=== PATIENT | male | born 1945 | race African-American/Black ===

== ENCOUNTER → 2017-10-07 | Outpatient (CLI) | payer MEDICARE, MEDICAID ==
--- NOTE | 2017-10-07 13:45 | RADIOLOGY REPORT (SQ) ---
EXAM DESCRIPTION: CT SOFT TISSUE NECK WITH COMPLETED DATE/TIME: 10/07/2017 1:24 pm REASON FOR STUDY: LOCALIZED SWELLING MASS AND LUMP IN NECK (R22.1) R22.1 LOCALIZED SWELLING, MASS A ND LUMP, NECK COMPARISON: None. TECHNIQUE: Post IV contrasted scanning from skull base through lung apices with review of bone, soft tissue and lung windows. Reconstructed coronal and sagittal MPR images reviewed. All images stored on PACS. All CT scanners at this facility use dose modulation, iterative reconstruction, and/or weight based d osing when appropriate to reduce radiation dose to as low as reasonably achievable (ALARA). [facility]: Dose Right [facility]: CareDose [facility]: Dose Right [facility]: Teradose 4D [facility]: AdTotum CONTRAST TYPE AND DOSE: contrast/concentration: Isovue 370.00 mg/ml; Total Contrast Delivered: 75.0 ml; Total Saline Delivered: 55.0 ml RENAL FUNCTION: Creatinine 1.1 RADIATION DOSE: 22 mGy . LIMITATIONS: None. FINDINGS: Patient is post extensive surgery, with laryngectomy, tracheostomy with esophageal speech prosthesis, and a large reconstructive flap along the midline neck submandibular region extending int o the left floor of mouth. Patient swallowed a small amount of oral contrast which pools in the patient's reconstructed hypophar ynx. The tracheostomy is widely patent. In the left submandibular region, a 3.3 x 2.6 by 3 cm soft tissue mass is present along multiple surg ical clips, which could be an abnormal submandibular gland. Local tumor recurrence is also possible. There is an adjacent submandibular 1 x 0.7 cm lymph node. These findings are best shown on axial i mages 43-49, and coronal image 36. There is narrowing of the to and hypopharynx related to mild mass effect from the reconstructive fla p. SKULL BASE: Inferior brain parenchyma is unremarkable. Heavily calcified nikolai of [place] vessels. MAJOR SALIVARY GLANDS: Bilateral parotid and right submandibular glands are unremarkable LYMPHADENOPATHY: No bulky cervical adenopathy. 1 x 0.7 cm left submandibular lymph node. MUCOSAL MASSES OR ASYMMETRY: As above LARYNX/CORDS: Post laryngectomy VASCULAR STRUCTURES: No carotid stenosis. Heavily calcified cervical vertebral arteries. LUNG APICES: Obstructive lung disease BONES: Diffuse degenerative disc changes with multilevel facet arthropathy THYROID: Surgically absent PARANASAL SINUSES: Clear. OTHER: No other significant finding. IMPRESSION: Mass in the left submandibular region could represent an abnormal submandibular gland. Local tumor recurrence is possible. Widely patent tracheostomy with esophageal speech prosthesis Report discussed with Dr. Elam TECHNICAL DOCUMENTATION: JOB ID: [id number] Quality ID # [id number]: Final reports with documentation of one or more dose reduction techniques (e.g., Au tomated exposure control, adjustment of the mA and/or kV according to patient size, use of iterative reconstruction technique) 2010 [employer]- All Rights Reserved Reading location - IP/workstation name: [email or web address]
== END ==
LOC: EDBD 12:30 → RAD 12:43
PROVIDERS: ATTEND Internal Medicine
DX: R22.1 Localized swelling, mass and lump, neck (principal)
CPT/HCPCS: 70491; 82565

== ENCOUNTER → 2017-12-14 | Outpatient (CLI) | payer MEDICARE, MEDICAID ==
[2017-12-14 15:45] LABS: ABSOLUTE BASOPHILS # (AUTO) 0.1 10^3/uL (0.0-0.2); ABSOLUTE EOSINOPHILS # (AUTO) 0.1 10^3/uL (0.0-0.6); ABSOLUTE LYMPHOCYTES (AUTO) 1.2 10^3/uL (0.5-4.7); ABSOLUTE MONOCYTES (AUTO) 0.4 10^3/uL (0.1-1.4); ABSOLUTE NEUT (AUTO) 4.2 10^3/uL (1.7-8.2); BASOPHILS % (AUTO) 1.2 % (0-2); EOSINOPHILS % (AUTO) 1.7 % (0-6); HEMATOCRIT 39.4 % (37.9-51.0); HEMOGLOBIN 13.1 g/dL (13.5-17.0); LYMPHOCYTES % (AUTO) 20.6 % (13-45); MEAN CORPUSCULAR HEMOGLOBIN 27.7 pg (27.0-33.4); MEAN CORPUSCULAR HGB CONC 33.4 g/dL (32.0-36.0); MEAN CORPUSCULAR VOLUME 83 fl (80-97); MONOCYTES % (AUTO) 6.3 % (3-13); PLATELET COUNT 335 10^3/uL (150-450); RED BLOOD COUNT 4.75 10^6/uL (4.35-5.55); RED CELL DISTRIBUTION WIDTH 16.8 % (11.5-14.0); SEGMENTED NEUTROPHILS % (AUTO) 70.2 % (42-78); TOTAL CELLS COUNTED % (AUTO) 100 %; WHITE BLOOD COUNT 5.9 10^3/uL (4.0-10.5)
== END ==
LOC: LB 15:32
PROVIDERS: ATTEND Radiology Radiation Oncology
DX: C32.1 Malignant neoplasm of supraglottis (principal); C32.0 Malignant neoplasm of glottis; C32.2 Malignant neoplasm of subglottis; C77.0 Secondary and unspecified malignant neoplasm of lymph nodes of head, face and neck
CPT/HCPCS: 36415; 85025

== ENCOUNTER 2018-02-19 17:41 | Observation (INO) | payer MEDICARE, MEDICAID ==
[2018-02-19 18:50] LABS: ABSOLUTE BASOPHILS # (AUTO) 0.1 10^3/uL (0.0-0.2); ABSOLUTE EOSINOPHILS # (AUTO) 0.1 10^3/uL (0.0-0.6); ABSOLUTE LYMPHOCYTES (AUTO) 1.3 10^3/uL (0.5-4.7); ABSOLUTE MONOCYTES (AUTO) 0.5 10^3/uL (0.1-1.4); ABSOLUTE NEUT (AUTO) 4.5 10^3/uL (1.7-8.2); BASOPHILS % (AUTO) 1.4 % (0-2); EOSINOPHILS % (AUTO) 1.7 % (0-6); HEMOGLOBIN 12.1 g/dL (13.5-17.0); LYMPHOCYTES % (AUTO) 19.4 % (13-45); MEAN CORPUSCULAR HEMOGLOBIN 28.1 pg (27.0-33.4); MEAN CORPUSCULAR HGB CONC 33.6 g/dL (32.0-36.0); MEAN CORPUSCULAR VOLUME 84 fl (80-97); MONOCYTES % (AUTO) 7.8 % (3-13); PLATELET COUNT 329 10^3/uL (150-450); RED BLOOD COUNT 4.29 10^6/uL (4.35-5.55); RED CELL DISTRIBUTION WIDTH 16.3 % (11.5-14.0); SEGMENTED NEUTROPHILS % (AUTO) 69.7 % (42-78); TOTAL CELLS COUNTED % (AUTO) 100 %; WHITE BLOOD COUNT 6.5 10^3/uL (4.0-10.5)
[2018-02-19 19:16] LABS: ANION GAP 10 (5-19); BLOOD UREA NITROGEN 8 mg/dL (7-20); CARBON DIOXIDE 28 mmol/L (22-30); CHLORIDE 103 mmol/L (98-107); GLUCOSE 94 mg/dL (75-110); SODIUM 141.3 mmol/L (137-145)
[2018-02-19] MEDS: CLINDAMYCIN 600 MG/D5W RTU 600 MG/50 ML RTUPB IV SCH (21:45)
[2018-02-20] MEDS ORDERED: OXYCODONE HCL IR 5 MG TABLET PO PRN (00:26)
[2018-02-20] MEDS ORDERED: BISACODYL 10 MG SUPP.RECT PR PRN (00:26)
[2018-02-20] MEDS ORDERED: (PENDING PHARMACY ID) (Naloxone Hcl [Narcan] 4 MG) NS PRN (00:26)
[2018-02-20] MEDS ORDERED: NORMAL SALINE FOR INHALATION 5 ML VIAL.NEB IH PRN (00:26)
[2018-02-20] MEDS ORDERED: DOCUSATE SODIUM 100 MG/10 ML UDC PO PRN (00:26)
[2018-02-20] MEDS ORDERED: ACETAMINOPHEN SOLN 325 MG/10.15 ML UDCUP PO PRN (00:45)
[2018-02-20] MEDS ORDERED: MIRTAZAPINE 15 MG TABLET PO ONE (00:45)
[2018-02-20] MEDS ORDERED: CALCITRIOL 1 MCG/ML ORAL SOLN 15 ML PO ONE (00:45)
[2018-02-20] MEDS ORDERED: APIXABAN 2.5 MG TABLET PO ONE (00:45)
[2018-02-20] MEDS ORDERED: METOPROLOL TARTRATE 25 MG TABLET PO ONE (00:45)
[2018-02-20] MEDS ORDERED: ATORVASTATIN CALCIUM 80 MG TABLET PO ONE (00:45)
[2018-02-20] MEDS ORDERED: BUSPIRONE HCL 10 MG TABLET PO ONE (00:45)
[2018-02-20] MEDS ORDERED: IPRATROPIUM/ALBUTEROL 0.5-2.5 MG/3 ML AMPUL NEB ONE (00:45)
[2018-02-20] MEDS: IPRATROPIUM/ALBUTEROL 0.5-2.5 MG/3 ML AMPUL NEB SCH ×4 (04:09→16:36)
[2018-02-20] MEDS: CLINDAMYCIN 600 MG/D5W RTU 600 MG/50 ML RTUPB IV SCH ×2 (05:07→14:57)
[2018-02-20] MEDS ORDERED: LEVOTHYROXINE SODIUM 0.112 MG TABLET PO SCH (06:00)
[2018-02-20] MEDS ORDERED: LANSOPRAZOLE 15 MG TAB.RAP.DR PO SCH (06:00)
[2018-02-20] MEDS: CALCIUM CARBONATE 500 MG TABLET PO SCH ×2 (09:28→14:57)
[2018-02-20] MEDS ORDERED: BUSPIRONE HCL 10 MG TABLET PO SCH (10:00)
[2018-02-20] MEDS ORDERED: (PENDING PHARMACY ID) (Sennosides [Senna] 17.2 MG) PO SCH (10:00)
[2018-02-20] MEDS ORDERED: LISINOPRIL 5 MG TABLET PO SCH (10:00)
[2018-02-20] MEDS ORDERED: (PENDING PHARMACY ID) (Diclofenac Sodium [Voltaren] 4 GM) TP SCH (10:00)
[2018-02-20] MEDS ORDERED: CALCITRIOL 1 MCG/ML ORAL SOLN 15 ML PO SCH (10:00)
[2018-02-20] MEDS ORDERED: METOPROLOL TARTRATE 25 MG TABLET PO SCH (10:00)
[2018-02-20] MEDS ORDERED: APIXABAN 2.5 MG TABLET PO SCH (10:00)
[2018-02-20] MEDS ORDERED: ASPIRIN 81 MG TABLET, ENT COATED PO SCH (10:00)
[2018-02-20] MEDS ORDERED: ONDANSETRON 4 MG TAB.RAPDIS PO PRN (12:17)
[2018-02-20] MEDS ORDERED: ONDANSETRON HCL INJ/PF 4 MG/2 ML SDV IV PRN (12:29)
--- NOTE | 2018-02-20 13:51 | RADIOLOGY REPORT (SQ) ---
EXAM DESCRIPTION: CT SOFT TISSUE NECK WITH COMPLETED DATE/TIME: 02/20/2018 1:18 pm REASON FOR STUDY: abscess of neck I10 ESSENTIAL (PRIMARY) HYPERTENSION COMPARISON: CT soft tissue neck 10/07/2017 TECHNIQUE: Post IV contrasted scanning from skull base through lung apices with review of bone, soft tissue and lung windows. Reconstructed coronal and sagittal MPR images reviewed. All images stored on PACS. All CT scanners at this facility use dose modulation, iterative reconstruction, and/or weight based d osing when appropriate to reduce radiation dose to as low as reasonably achievable (ALARA). [facility]: Dose Right [facility]: CareDose [facility]: Dose Right [facility]: Teradose 4D [facility]: Boombotix CONTRAST TYPE AND DOSE: 75 mL of IV Omnipaque 350- low osmolar. RENAL FUNCTION: GFR > 60. RADIATION DOSE: CT Rad equipment meets quality standard of care and radiation dose reduction techniq ues were employed. CTDIvol: 10.5 mGy. DLP: 344 mGy-cm. . LIMITATIONS: None. FINDINGS: The patient is post surgical changes in the neck, with laryngectomy, tracheostomy, esophag eal speech prosthesis, and 80 tissue flap re- creating the ventral midline neck soft tissues. There are surgical clips along the ventral aspect of the left and right sternocleidomastoid muscles, with p ostoperative surgical clips in the left submandibular triangle. Since the prior CT soft tissue neck 10/07/2017 the patient has developed a 3.5 x 3.5 cm soft tissue ma ss at the left tongue base worrisome for tumor recurrence. This is best shown on axial image 50, cor onal image 24, and sagittal image 27. There is cystic degeneration or necrosis of the left submandibular triangle mass. Superimposed infec tion could not be excluded. This currently measures 3.6 x 3 cm in size (was 3.3 x 2.6 cm on 8). Cystic necrosis or abscess formation is best shown on axial image 59, coronal image 20, and sagi ttal image 30. SKULL BASE: Inferior brain parenchyma demonstrates moderate white matter disease and extremely heavy intracranial arterial vascular calcification. MAJOR SALIVARY GLANDS: Right submandibular gland, bilateral parotid glands are grossly unremarkable LYMPHADENOPATHY: Right submandibular lymph node axial image 59, 1.6 x 0 point cm (was 1.4 x 0.7 cm on 10/07/2017). MUCOSAL MASSES OR ASYMMETRY: As above LARYNX/CORDS: As above VASCULAR STRUCTURES: Patent carotid bifurcations bilaterally in the neck. Hypoplastic left vertebral artery, an anatomic variant LUNG APICES: Obstructive lung disease. No focal infiltrate BONES: Multilevel degenerative disc changes in the cervical spine THYROID: Surgically absent PARANASAL SINUSES: Clear. OTHER: No other significant finding. IMPRESSION: Findings worrisome for recurrent tumor in the left submandibular triangle with cystic ne crotic change. Superimposed infection could not be excluded. There is new tumor growth into the lef t tongue base as compared to prior CT neck exam 10/07/2017. TECHNICAL DOCUMENTATION: JOB ID: [id number] Quality ID # [id number]: Final reports with documentation of one or more dose reduction techniques (e.g., Au tomated exposure control, adjustment of the mA and/or kV according to patient size, use of iterative reconstruction technique) 2010 [employer]- All Rights Reserved Reading location - IP/workstation name: [email or web address]
--- NOTE | 2018-02-20 14:02 | PDOC H&P ---
History of Present Illness Admission Date/PCP: 02/19/18 17:41 HETAL HOPKINS MD History of Present Illness: LEONARD CAAL is a 72 year old male he came to the office for evaluation of left submandibular swelling that was oozing, discharge yellowish exudate, he has a history of laryngeal cancer status post radical laryngectomy with tracheostomy and also speech prosthesis, recurrent tumor. The CAT scan demonstrated a new 3.5 x 3.5 cm soft tissue mass at the left tongue base worrisome for tumor recurrence. There is cystic degeneration or necrosis of the left submandibular triangular mass, superimposed infection cannot be excluded. Patient was treated for his cancer at [facility], he has received the maximum allowable doses of radiation treatment, presently he is considered not to be a candidate for any more radiation treatment. Past Medical History Pulmonary Medical History: Reports: Chronic Obstructive Pulmonary Disease (COPD) Malignancy Medical History: Reports: Other - Laryngeal cancer Social History Smoking Status: Former Smoker Frequency of Alcohol Use: None Hx Recreational Drug Use: No Drugs: None Family History Parental Family History Reviewed: Yes Children Family History Reviewed: Yes Sibling(s) Family History Reviewed.: Yes Medication/Allergy Home Medications: Acetaminophen [Tylenol Extra Strength] 500 mg PO Q6HP PRN 02/19/18 Apixaban [Eliquis 2.5 mg Tablet] 2.5 mg PO Q12 02/19/18 Aspirin [Aspirin EC] 81 mg PO DAILY 02/19/18 Atorvastatin Calcium [Lipitor 80 mg Tablet] 80 mg PO QPM 02/19/18 Bisacodyl [Dulcolax 10 mg Supp.rect] 10 mg [place] DAILYP PRN 02/19/18 Buspirone HCl [Buspar 5 mg Tablet] 5 mg PO BID 02/19/18 Calcitriol [Rocaltrol 1 Mcg/ml Oral Soln] 0.3 mcg PO Q12 02/19/18 Calcium Carbonate [Os-[place] 500 mg Tablet (Oyster-Shell)] 500 mg PO TID 02/19/18 Diclofenac Sodium [Voltaren] 4 gm TP BID 02/19/18 Docusate Sodium 10 ml PO BIDP PRN 02/19/18 Ipratropium/Albuterol Sulfate [Duoneb 3 ml Ampul] 3 ml NEB RTQ4 02/19/18 Levothyroxine Sodium [Synthroid] 112 mcg PO Q6AM 02/19/18 Lisinopril [Prinivil 5 mg Tablet] 5 mg PO DAILY 02/19/18 Metoprolol Tartrate [Lopressor 25 mg Tablet] 25 mg PO Q12 02/19/18 Mirtazapine [Remeron 15 mg Tablet] 15 mg PO QHS 02/19/18 Naloxone HCl [Narcan] 4 mg NS .ASDIR PRN 02/19/18 Omeprazole 20 mg PO DAILY 02/19/18 Oxycodone HCl [Oxy-Ir 5 mg Tablet] 10 mg PO Q8HP PRN 02/19/18 Sennosides [Senna] 17.2 mg PO DAILY 02/19/18 Sodium Chloride For Inhalation [Sodium Chloride] 1 vial IH Q4HP PRN 02/19/18 Allergies/Adverse Reactions: No Known Drug Allergies Allergy (Unknown, Verified 02/19/18 19:33) Review of Systems Constitutional: ABSENT: chills, fever(s), headache(s), weight gain, weight loss Eyes: ABSENT: visual disturbances Ears: ABSENT: hearing changes Cardiovascular: ABSENT: chest pain, dyspnea on exertion, edema, orthropnea, palpitations Respiratory: ABSENT: cough, hemoptysis Gastrointestinal: ABSENT: abdominal pain, constipation, diarrhea, hematemesis, hematochezia, nausea, vomiting Genitourinary: ABSENT: dysuria, hematuria Musculoskeletal: ABSENT: joint swelling Integumentary: ABSENT: rash, wounds Neurological: ABSENT: abnormal gait, abnormal speech, confusion, dizziness, focal weakness, syncope Psychiatric: ABSENT: anxiety, depression, homidical ideation, suicidal ideation Endocrine: ABSENT: cold intolerance, heat intolerance, menstrual abnormalities, polydipsia, polyuria Hematologic/Lymphatic: ABSENT: easy bleeding, easy bruising, lymphadenopathy Physical Exam Vital Signs: Temp Pulse Resp BP Pulse Ox 98.1 F 65 18 147/87 H 100 02/20/18 13:00 02/20/18 13:00 02/20/18 13:00 02/20/18 13:00 02/20/18 13:00 Intake & Output 02/19/18 02/20/18 02/21/18 06:59 06:59 06:59 Intake Total 100 Output Total 400 Balance -300 Weight 77.4 kg General appearance: PRESENT: no acute distress Head exam: PRESENT: atraumatic, normocephalic Eye exam: PRESENT: PERRLA Ear exam: PRESENT: normal external ear exam Mouth exam: PRESENT: moist, tongue midline Neck exam: PRESENT: other - Large left submandibular mass with areas of discharge Respiratory exam: PRESENT: clear to auscultation perlita Cardiovascular exam: PRESENT: +S1 Vascular exam: PRESENT: normal capillary refill GI/Abdominal exam: PRESENT: normal bowel sounds, soft Rectal exam: PRESENT: deferred Neurological exam: PRESENT: alert Psychiatric exam: PRESENT: appropriate affect, normal mood Skin exam: PRESENT: dry, intact, warm Results Laboratory Results: 02/19/18 18:43 02/19/18 18:43 02/19/18 02/19/18 18:43 18:43 WBC 6.5 RBC 4.29 L Hgb 12.1 L Hct 36.0 L MCV 84 MCH 28.1 MCHC 33.6 RDW 16.3 H Plt Count 329 Seg Neutrophils % 69.7 Lymphocytes % 19.4 Monocytes % 7.8 Eosinophils % 1.7 Basophils % 1.4 Absolute Neutrophils 4.5 Absolute Lymphocytes 1.3 Absolute Monocytes 0.5 Absolute Eosinophils 0.1 Absolute Basophils 0.1 Sodium 141.3 Potassium 4.0 Chloride 103 Carbon Dioxide 28 Anion Gap 10 BUN 8 Creatinine 0.75 Est GFR ( Amer) > 60 Est GFR (Non-Af Amer) > 60 Glucose 94 Calcium 9.0 Impressions: Soft Tissue Neck CT 02/19/18 00:00 IMPRESSION: Findings worrisome for recurrent tumor in the left submandibular triangle with cystic necrotic change. Superimposed infection could not be excluded. There is new tumor growth into the left tongue base as compared to prior CT neck exam 10/07/2017. Assessment & Plan - Diagnosis (1) Recurrent laryngeal squamous cell carcinoma Is this a current diagnosis for this admission?: Yes (2) Cellulitis of submandibular region Is this a current diagnosis for this admission?: Yes Plan: There is no discrete abscess to drain, patient was brought seen essentially for evaluation and to rule out any discrete abscess, he was treated with IV clindamycin for the infection he has recurrent laryngeal cancer, a new left tongue base mass was identified on this CAT scan, patient is not a candidate for any intervention at this time, he is scheduled to follow with radiation oncology sometime next week, he be discharged home on p.o. clindamycin, he has extremely poor prognosis
--- NOTE | 2018-02-20 14:53 | PDOC DISCHARGE SUMMARY ---
General - Admit/Disc Date/PCP Admission Date/Primary Care Provider: 02/19/18 17:41 HETAL HOPKINS MD Discharge Date: 02/20/18 - Discharge Diagnosis (1) Recurrent laryngeal squamous cell carcinoma Is this a current diagnosis for this admission?: Yes (2) Cellulitis of submandibular region Is this a current diagnosis for this admission?: Yes - Additional Information Discharge Activity: Activity As Tolerated Prescriptions: Clindamycin HCl [Cleocin 300 mg Capsule] 300 mg PO TID #21 capsule Home Medications: Acetaminophen [Tylenol Extra Strength] 500 mg PO Q6HP PRN 02/19/18 Apixaban [Eliquis 2.5 mg Tablet] 2.5 mg PO Q12 02/19/18 Aspirin [Aspirin EC] 81 mg PO DAILY 02/19/18 Atorvastatin Calcium [Lipitor 80 mg Tablet] 80 mg PO QPM 02/19/18 Bisacodyl [Dulcolax 10 mg Supp.rect] 10 mg ME DAILYP PRN 02/19/18 Buspirone HCl [Buspar 5 mg Tablet] 5 mg PO BID 02/19/18 Calcitriol [Rocaltrol 1 mcg/1 mL Oral Soln 15 mL] 0.3 mcg PO Q12 02/19/18 Calcium Carbonate [Os-[place] 500 mg Tablet (Oyster-Shell)] 500 mg PO TID 02/19/18 Diclofenac Sodium [Voltaren] 4 gm TP BID 02/19/18 Docusate Sodium 10 ml PO BIDP PRN 02/19/18 Ipratropium/Albuterol Sulfate [Duoneb 3 ml Ampul] 3 ml NEB RTQ4 02/19/18 Levothyroxine Sodium [Synthroid] 112 mcg PO Q6AM 02/19/18 Lisinopril [Prinivil 5 mg Tablet] 5 mg PO DAILY 02/19/18 Metoprolol Tartrate [Lopressor 25 mg Tablet] 25 mg PO Q12 02/19/18 Mirtazapine [Remeron 15 mg Tablet] 15 mg PO QHS 02/19/18 Naloxone HCl [Narcan] 4 mg NS .ASDIR PRN 02/19/18 Omeprazole 20 mg PO DAILY 02/19/18 Oxycodone HCl [Oxy-Ir 5 mg Tablet] 10 mg PO Q8HP PRN 02/19/18 Sennosides [Senna] 17.2 mg PO DAILY 02/19/18 Sodium Chloride For Inhalation [Sodium Chloride] 1 vial IH Q4HP PRN 02/19/18 Clindamycin HCl [Cleocin 300 mg Capsule] 300 mg PO TID #21 capsule 02/20/18 History of Present Illness History of Present Illness: LEONARD CAAL is a 72 year old male he came to the office for evaluation of left submandibular swelling that was oozing, discharge yellowish exudate, he has a history of laryngeal cancer status post radical laryngectomy with tracheostomy and also speech prosthesis, recurrent tumor. The CAT scan demonstrated a new 3.5 x 3.5 cm soft tissue mass at the left tongue base worrisome for tumor recurrence. There is cystic degeneration or necrosis of the left submandibular triangular mass, superimposed infection cannot be excluded. Patient was treated for his cancer at [facility], he has received the maximum allowable doses of radiation treatment, presently he is considered not to be a candidate for any more radiation treatment. Hospital Course Hospital Course: Patient was admitted for the management of infected recurrent laryngeal cancer involving the sub-mandibular area and the base of the tongue. He was treated with IV antibiotic, clindamycin for the cellulitis, he has poor prognosis overall. Is a candidate for any more radiation therapy Physical Exam Vital Signs: Temp Pulse Resp BP Pulse Ox 98.1 F 65 18 147/87 H 100 02/20/18 13:00 02/20/18 13:00 02/20/18 13:00 02/20/18 13:00 02/20/18 13:00 Intake & Output 02/19/18 02/20/18 02/21/18 06:59 06:59 06:59 Intake Total 100 Output Total 400 Balance -300 Weight 77.4 kg General appearance: PRESENT: no acute distress Eye exam: PRESENT: PERRLA Neck exam: PRESENT: lymphadenopathy, other - submandibular enlargement Respiratory exam: PRESENT: clear to auscultation perlita Cardiovascular exam: PRESENT: +S1, +S2 GI/Abdominal exam: PRESENT: soft Neurological exam: PRESENT: alert Results Laboratory Results: 02/19/18 18:43 02/19/18 18:43 02/19/18 02/19/18 18:43 18:43 WBC 6.5 RBC 4.29 L Hgb 12.1 L Hct 36.0 L MCV 84 MCH 28.1 MCHC 33.6 RDW 16.3 H Plt Count 329 Seg Neutrophils % 69.7 Lymphocytes % 19.4 Monocytes % 7.8 Eosinophils % 1.7 Basophils % 1.4 Absolute Neutrophils 4.5 Absolute Lymphocytes 1.3 Absolute Monocytes 0.5 Absolute Eosinophils 0.1 Absolute Basophils 0.1 Sodium 141.3 Potassium 4.0 Chloride 103 Carbon Dioxide 28 Anion Gap 10 BUN 8 Creatinine 0.75 Est GFR ( Amer) > 60 Est GFR (Non-Af Amer) > 60 Glucose 94 Calcium 9.0 Impressions: Soft Tissue Neck CT 02/19/18 00:00 IMPRESSION: Findings worrisome for recurrent tumor in the left submandibular triangle with cystic necrotic change. Superimposed infection could not be excluded. There is new tumor growth into the left tongue base as compared to prior CT neck exam 10/07/2017. Qualifiers - * PATIENT BEING DISCHARGED WITH ANY OF THE FOLLOWING DIAGNOSIS: No
[2018-02-20 15:48] VITALS: BP 133/60
[2018-02-20] MEDS ORDERED: ATORVASTATIN CALCIUM 80 MG TABLET PO SCH (18:00)
[2018-02-20] MEDS ORDERED: MIRTAZAPINE 15 MG TABLET PO SCH (22:00)
== END 2018-02-20 16:50 | disposition home health service (06) ==
LOC: 5 17:41
PROVIDERS: ADMIT Internal Medicine; ATTEND Internal Medicine
DX: C32.9 Malignant neoplasm of larynx, unspecified (principal); K12.2 Cellulitis and abscess of mouth; I48.0 Paroxysmal atrial fibrillation; J44.9 Chronic obstructive pulmonary disease, unspecified; I10 Essential (primary) hypertension; Z79.899 Other long term (current) drug therapy; Z79.82 Long term (current) use of aspirin; Z92.3 Personal history of irradiation; Z96.3 Presence of artificial larynx; Z90.02 Acquired absence of larynx; Z93.0 Tracheostomy status; Z79.02 Long term (current) use of antithrombotics/antiplatelets; Z87.891 Personal history of nicotine dependence
CPT/HCPCS: 36415; 85025; 80048; 70491; 94640 ×2; G0378 ×2; G0379; A9270 ×13; J3490 ×2; J7620; S0119

== ENCOUNTER 2018-03-01 16:46 | Emergency (ER) | payer MEDICARE, MEDICAID ==
[2018-03-01 17:15] LABS: VENOUS BLOOD BASE EXCESS 2.3 mmol/L; VENOUS BLOOD HCO3 25.8 mmol/L (20-32); VENOUS BLOOD PCO2 36.2 mmHg (35-63); VENOUS BLOOD PH 7.47 (7.30-7.42)
[2018-03-01 17:20] LABS: ABSOLUTE BASOPHILS # (AUTO) 0.1 10^3/uL (0.0-0.2); ABSOLUTE EOSINOPHILS # (AUTO) 0.1 10^3/uL (0.0-0.6); ABSOLUTE MONOCYTES (AUTO) 0.5 10^3/uL (0.1-1.4); ABSOLUTE NEUT (AUTO) 4.1 10^3/uL (1.7-8.2); BASOPHILS % (AUTO) 1.3 % (0-2); HEMATOCRIT 34.5 % (37.9-51.0); HEMOGLOBIN 11.6 g/dL (13.5-17.0); MEAN CORPUSCULAR HEMOGLOBIN 27.7 pg (27.0-33.4); MEAN CORPUSCULAR HGB CONC 33.5 g/dL (32.0-36.0); MEAN CORPUSCULAR VOLUME 83 fl (80-97); PLATELET COUNT 318 10^3/uL (150-450); RED BLOOD COUNT 4.17 10^6/uL (4.35-5.55); RED CELL DISTRIBUTION WIDTH 16.1 % (11.5-14.0); SEGMENTED NEUTROPHILS % (AUTO) 71.7 % (42-78); TOTAL CELLS COUNTED % (AUTO) 100 %; WHITE BLOOD COUNT 5.7 10^3/uL (4.0-10.5)
[2018-03-01 17:22] LABS: INTERNATIONAL RATION (INR) 1.17; PROTHROMBIN TIME 15.5 SEC (11.4-15.4)
[2018-03-01 17:36] LABS: ALANINE AMINOTRANSFERASE 17 U/L (21-72); ALBUMIN 3.2 g/dL (3.5-5.0); ALKALINE PHOSPHATASE 142 U/L (38-126); ANION GAP 7 (5-19); ASPARTATE AMINO TRANSFERASE 29 U/L (17-59); BILIRUBIN,DIRECT 0.2 mg/dL (0.0-0.4); BILIRUBIN,TOTAL 0.8 mg/dL (0.2-1.3); BLOOD UREA NITROGEN 9 mg/dL (7-20); CALCIUM 8.6 mg/dL (8.4-10.2); CARBON DIOXIDE 26 mmol/L (22-30); CHLORIDE 106 mmol/L (98-107); GLUCOSE 98 mg/dL (75-110); POTASSIUM 3.3 mmol/L (3.6-5.0); SODIUM 139.1 mmol/L (137-145); TOTAL PROTEIN 6.4 g/dL (6.3-8.2)
--- NOTE | 2018-03-01 17:39 | EKG REPORT ---
SEVERITY:- OTHERWISE NORMAL ECG - SINUS RHYTHM BORDERLINE LEFT AXIS DEVIATION EARLY PRECORDIAL TRANSITION, CONSIDER OLD TRUE POST. AL. : Confirmed by: Lorenzo Schmid MD 01-Mar-2018 17:38:48
--- NOTE | 2018-03-01 17:58 | ER Document Report ---
ED General - General Mode of Arrival: Ambulatory Information source: Patient TRAVEL OUTSIDE OF THE [place] IN LAST 30 DAYS: No <MERON WHITAKER - Last Filed: 03/01/18 18:20> <MARIBELL CASTANEDA - Last Filed: 03/01/18 19:35> - General Chief Complaint: Neck Swelling Stated Complaint: SORE THROAT Time Seen by Provider: 03/01/18 17:19 Notes: Patient is a 72-year-old male with recurrent laryngeal cancer presents to the emergency department accompanied by home health aide complaining of neck swelling, difficulty swallowing and facial swelling. Patient was seen by his PCP Dr. Hopkins on 02/19/[address] scan was performed which found a new left base tongue mass with cystic necrotic change. Patient was admitted and placed on Clindamycin which should be completed tomorrow. Patient and home health aide state they feel the swelling has increased recently. Patient states he has had the maximum allotted chemotherapy and radiation and is no longer a candidate to receive this. (MERON WHITAKER) - Related Data Allergies/Adverse Reactions: No Known Drug Allergies Allergy (Unknown, Verified 03/01/18 17:01) Past Medical History - General Information source: Patient - Social History Smoking Status: Former Smoker Cigarette use (# per day): No Chew tobacco use (# tins/day): No Smoking Education Provided: No Frequency of alcohol use: None Family History: Reviewed & Not Pertinent Patient has suicidal ideation: No Patient has homicidal ideation: No Pulmonary Medical History: Reports: Hx COPD Malignancy Medical History: Reports Other - Recurrent laryngeal cancer Past Surgical History: Reports: Other - radical laryngectomy with tracheostomy <MERON WHITAKER - Last Filed: 03/01/18 18:20> Review of Systems - Review of Systems Constitutional: No symptoms reported EENT: See HPI Cardiovascular: No symptoms reported Respiratory: See HPI, Short of breath Gastrointestinal: No symptoms reported Genitourinary: No symptoms reported Male Genitourinary: No symptoms reported Musculoskeletal: See HPI Skin: No symptoms reported Hematologic/Lymphatic: No symptoms reported Neurological/Psychological: No symptoms reported -: Yes All other systems reviewed and negative <MERON WHITAKER - Last Filed: 03/01/18 18:20> Physical Exam - General General appearance: Appears well, Alert In distress: None - HEENT Head: Normocephalic, Atraumatic Eyes: Normal Conjunctiva: Normal Extraocular movements intact: Yes Pupils: PERRL Neck: Other - Tracheostomy in place - Respiratory Respiratory status: No respiratory distress Chest status: Nontender Breath sounds: Normal Chest palpation: Normal - Cardiovascular Rhythm: Regular Heart sounds: Normal auscultation Murmur: No Friction rub: No Gallop: None auscultated - Abdominal Inspection: Normal - Back Back: Normal - Extremities General upper extremity: Normal ROM General lower extremity: Normal ROM - Neurological Neuro grossly intact: Yes Cognition: Normal Orientation: AAOx4 [place] Coma Scale Eye Opening: Spontaneous [place] Coma Scale Verbal: Oriented [place] Coma Scale Motor: Obeys Commands [place] Coma Scale Total: 15 Speech: Other - Unable to speak due to history of radical laryngectomy - Psychological Associated symptoms: Normal affect, Normal mood - Skin Skin Temperature: Warm Skin Moisture: Dry Skin Color: Normal Skin irregularity: other - Pustule on the left side of the neck. Adjacent to trach on the left side, there is a 1cm elliptical shaped are of thin pink skin that appears fluctuant. Proceeded to puncture area of skin adjacent to trach with an 18 gauge needle. There was no discharge from this area. <MERON WHITAKER - Last Filed: 03/01/18 18:20> - Vital signs Vitals: Pulse BP Pulse Ox 108 H 100/86 H 98 03/01/18 16:48 03/01/18 16:48 03/01/18 16:48 Course - Laboratory Result Diagrams: 03/01/18 16:56 03/01/18 16:56 <MERON WHITAKER - Last Filed: 03/01/18 18:20> - Laboratory Result Diagrams: 03/01/18 16:56 03/01/18 16:56 - Diagnostic Test Radiology reviewed: Image reviewed, Reports reviewed - CT scan is unchanged from 02/20/2018 <MARIBELL CASTANEDA - Last Filed: 03/01/18 19:35> - Vital Signs Vital signs: Temp Pulse Resp BP Pulse Ox 99.3 F 75 24 H 146/74 H 99 03/01/18 17:01 03/01/18 17:00 03/01/18 19:01 03/01/18 19:01 03/01/18 19:01 - Laboratory Laboratory results interpreted by me: 03/01/18 03/01/18 03/01/18 16:56 16:56 16:56 RBC 4.17 L Hgb 11.6 L Hct 34.5 L RDW 16.1 H PT 15.5 H VBG pH Potassium 3.3 L ALT 17 L Alkaline Phosphatase 142 H Albumin 3.2 L 03/01/18 16:56 RBC Hgb Hct RDW PT VBG pH 7.47 H Potassium ALT Alkaline Phosphatase Albumin Discharge <MERON WHITAKER - Last Filed: 03/01/18 18:20> <MARIBELL CASTANEDA - Last Filed: 03/01/18 19:35> - Discharge Clinical Impression: Local recurrence of malignant neoplasm of larynx, Recurrent laryngeal squamous cell carcinoma Difficulty swallowing Qualifiers: Dysphagia type: unspecified Qualified Code(s): R13.10 - Dysphagia, unspecified Condition: Stable Disposition: HOME, SELF-CARE Additional Instructions: The CT scan did not show any change compared to the one done 9 days ago. I spoke with Dr. Hopkins, he will see you in the office tomorrow to review the findings and the current problems you are having. Follow-up with Dr. Hopkins in the office tomorrow. RETURN TO THE EMERGENCY ROOM IF ANY NEW OR WORSENING SYMPTOMS. Referrals: HETAL HOPKINS MD [Primary Care Provider] - Follow up tomorrow Scribe Attestation: 03/01/18 18:43 I personally performed the services described in the documentation, reviewed and edited the documentation which was dictated to the scribe in my presence, and it accurately records my words and actions. (MARIBELL CASTANEDA) Scribe Documentation - Scribe Written by Eliibe:: Asmita Amor, 03/01/2018 18:06 acting as scribe for :: Delma <MERON WHITAKER - Last Filed: 03/01/18 18:20>
--- NOTE | 2018-03-01 19:02 | RADIOLOGY REPORT (SQ) ---
EXAM DESCRIPTION: CT SOFT TISSUE NECK WITH COMPLETED DATE/TIME: 03/01/2018 6:44 pm REASON FOR STUDY: Recurrent tumor,increased swelling in the past wk COMPARISON: 02/20/2018 TECHNIQUE: Post IV contrasted scanning from skull base through lung apices with review of bone, soft tissue and lung windows. Reconstructed coronal and sagittal MPR images reviewed. All images stored on PACS. All CT scanners at this facility use dose modulation, iterative reconstruction, and/or weight based d osing when appropriate to reduce radiation dose to as low as reasonably achievable (ALARA). [facility]: Dose Right [facility]: CareDose [facility]: Dose Right [facility]: Teradose 4D [facility]: [employer] CONTRAST TYPE AND DOSE: contrast/concentration: Isovue 350.00 mg/ml; Total Contrast Delivered: 75.0 ml; Total Saline Delivered: 55.0 ml RENAL FUNCTION: BUN 9 creatinine 0.8 RADIATION DOSE: CT Rad equipment meets quality standard of care and radiation dose reduction techniq ues were employed. CTDIvol: 10.8 mGy. DLP: 418 mGy-cm. . LIMITATIONS: None. FINDINGS: SKULL BASE: Intact. MAJOR SALIVARY GLANDS: No solid or cystic masses. No inflammatory changes. LYMPHADENOPATHY: No adenopathy. MUCOSAL MASSES OR ASYMMETRY: Once again there is a 3.5 cm tumor medial to the angle of the left clif ble. Immediately beneath the left mandible is a 2 x 3 cm fluid collection versus mass with central n ecrosis. LARYNX/CORDS: Status post laryngectomy. VASCULAR STRUCTURES: The major vessels are patent. LUNG APICES: Clear. BONES: Intact. THYROID: Normal size. No masses. PARANASAL SINUSES: Clear. OTHER: Tracheostomy. IMPRESSION: Stable findings since the prior study. Recurrent tumor mass medial to the angle of the mandible on the left with opacification extending inferiorly beneath the left mandible where in there is an appearance of an abscess versus central necrosis of tumor. TECHNICAL DOCUMENTATION: JOB ID: [id number] Quality ID # [id number]: Final reports with documentation of one or more dose reduction techniques (e.g., Au tomated exposure control, adjustment of the mA and/or kV according to patient size, use of iterative reconstruction technique) 2010 [employer]- All Rights Reserved Reading location - IP/workstation name: [email or web address]
[2018-03-01 19:41] VITALS: BP 149/76
== END 2018-03-01 19:48 | disposition home or self-care (01) ==
LOC: ER 16:46
DX: R22.1 Localized swelling, mass and lump, neck (principal); R13.10 Dysphagia, unspecified; C32.9 Malignant neoplasm of larynx, unspecified
CPT/HCPCS: 36415; 70491; 80053; 82803; 82962; 83605; 85025; 85610; 87040; 93005; 93010; 99284

== ENCOUNTER 2018-03-07 11:07 | Emergency (ER) | payer MEDICARE, MEDICAID ==
[2018-03-07] MEDS ORDERED: IPRATROPIUM/ALBUTEROL 0.5-2.5 MG/3 ML AMPUL NEB ONE (11:19)
[2018-03-07] MEDS ORDERED: FENTANYL CITRATE INJ/PF 100 MCG/2 ML AMPUL ONE (11:26)
[2018-03-07] MEDS ORDERED: ASPIRIN 81 MG TABLET, CHEWABLE PO ONE (11:26)
[2018-03-07] MEDS ORDERED: FENTANYL CITRATE INJ/PF 100 MCG/2 ML AMPUL IV ONE ×2 (11:27→13:17)
[2018-03-07] MEDS ORDERED: ASPIRIN 81 MG TABLET, CHEWABLE ONE (11:37)
[2018-03-07] MEDS ORDERED: ATROPINE SULFATE INJ 0.4 MG/1 ML VIAL IM ONE (11:47)
[2018-03-07 11:52] LABS: ABSOLUTE BASOPHILS # (AUTO) 0.1 10^3/uL (0.0-0.2); ABSOLUTE EOSINOPHILS # (AUTO) 0.1 10^3/uL (0.0-0.6); ABSOLUTE LYMPHOCYTES (AUTO) 1.4 10^3/uL (0.5-4.7); ABSOLUTE MONOCYTES (AUTO) 0.6 10^3/uL (0.1-1.4); ABSOLUTE NEUT (AUTO) 5.7 10^3/uL (1.7-8.2); BASOPHILS % (AUTO) 1.1 % (0-2); EOSINOPHILS % (AUTO) 1.2 % (0-6); HEMATOCRIT 44.2 % (37.9-51.0); HEMOGLOBIN 14.7 g/dL (13.5-17.0); LYMPHOCYTES % (AUTO) 18.1 % (13-45); MEAN CORPUSCULAR HEMOGLOBIN 27.8 pg (27.0-33.4); MEAN CORPUSCULAR HGB CONC 33.2 g/dL (32.0-36.0); MEAN CORPUSCULAR VOLUME 84 fl (80-97); MONOCYTES % (AUTO) 7.1 % (3-13); PLATELET COUNT 410 10^3/uL (150-450); RED BLOOD COUNT 5.27 10^6/uL (4.35-5.55); RED CELL DISTRIBUTION WIDTH 16.3 % (11.5-14.0); SEGMENTED NEUTROPHILS % (AUTO) 72.5 % (42-78); TOTAL CELLS COUNTED % (AUTO) 100 %; WHITE BLOOD COUNT 7.9 10^3/uL (4.0-10.5)
--- NOTE | 2018-03-07 12:09 | RADIOLOGY REPORT (SQ) ---
EXAM DESCRIPTION: CHEST SINGLE VIEW COMPLETED DATE/TIME: 03/07/2018 11:57 am REASON FOR STUDY: sob COMPARISON: None. EXAM PARAMETERS: NUMBER OF VIEWS: One view. TECHNIQUE: Single frontal radiographic view of the chest acquired. RADIATION DOSE: NA LIMITATIONS: None. FINDINGS: LUNGS AND PLEURA: No opacities, masses or pneumothorax. No pleural effusion. MEDIASTINUM AND HILAR STRUCTURES: No masses. Contour normal. HEART AND VASCULAR STRUCTURES: Heart normal in size. Normal vasculature. BONES: No acute findings. HARDWARE: Right permanent central line tip superior vena cava OTHER: No other significant finding. IMPRESSION: NO ACUTE RADIOGRAPHIC FINDING IN THE CHEST. TECHNICAL DOCUMENTATION: JOB ID: [id number]- All Rights Reserved Reading location - IP/workstation name: [email or web address]
[2018-03-07 12:39] LABS: ALANINE AMINOTRANSFERASE 14 U/L (21-72); ALBUMIN 4.3 g/dL (3.5-5.0); ALKALINE PHOSPHATASE 190 U/L (38-126); ANION GAP 15 (5-19); ASPARTATE AMINO TRANSFERASE 29 U/L (17-59); BILIRUBIN,DIRECT 0.4 mg/dL (0.0-0.4); BILIRUBIN,TOTAL 0.8 mg/dL (0.2-1.3); BLOOD UREA NITROGEN 15 mg/dL (7-20); CALCIUM 10.3 mg/dL (8.4-10.2); CARBON DIOXIDE 25 mmol/L (22-30); CHLORIDE 104 mmol/L (98-107); CREATINE KINASE 98 U/L (55-170); GLUCOSE 88 mg/dL (75-110); POTASSIUM 4.2 mmol/L (3.6-5.0); SODIUM 143.9 mmol/L (137-145); TOTAL PROTEIN 7.9 g/dL (6.3-8.2)
--- NOTE | 2018-03-07 12:41 | ER Document Report ---
ED General - General Chief Complaint: difficult wallowing Stated Complaint: DIFFICULTY BREATHING Time Seen by Provider: 03/07/18 11:26 Mode of Arrival: Ambulatory Information source: Patient, Legal Guardian Notes: 72-year-old male with COPD, recurrent laryngeal cancer presents with complaint of difficulty swallowing, painful swallowing and shortness of breath. Patient is unable to speak and the majority of the history is obtained through previous medical records and the patient's caregivers who are at the bedside. According to the caregivers patient has finished any chemotherapy or additional treatments available to him at this time. Patient does have a trach oxygen at home but it is reported that the patient does not always use it. They report that the patient has been eating less and losing weight. They had spoken to the patient's primary care physician Dr. Hopkins regarding comfort care and feeding tube just recently but they report that the patient refused. Patient was seen previously and started on clindamycin for potential jaw abscess. It is reported that he is being compliant with that antibiotic and is still currently taking it. TRAVEL OUTSIDE OF THE [place] IN LAST 30 DAYS: No - HPI Onset: Other Onset/Duration: Intermittent Quality of pain: Throbbing Severity: Moderate Associated symptoms: Nonproductive cough, Shortness of breath, Other - Painful swallowing. Decreased p.o. intake. Pain in jaw. denies: Chest pain, Diarrhea , Fever, Nausea, Vomiting Exacerbated by: Food Relieved by: Denies Similar symptoms previously: Yes Recently seen / treated by doctor: Yes - Related Data Allergies/Adverse Reactions: No Known Drug Allergies Allergy (Unknown, Verified 03/01/18 17:01) Past Medical History - General Information source: Patient, DrAnna Office, [facility] Records Cannot obtain history due to: Other - Unable to speak due to laryngeal cancer and trach without voicebox - Social History Smoking Status: Unknown if Ever Smoked Frequency of alcohol use: None Drug Abuse: None Lives with: Friend Family History: Reviewed & Not Pertinent Patient has suicidal ideation: No Patient has homicidal ideation: No Pulmonary Medical History: Reports: Hx COPD Renal/ Medical History: Denies: Hx Peritoneal Dialysis Malignancy Medical History: Reports Other - Laryngeal cancer Past Surgical History: Reports: Other - radical laryngectomy with tracheostomy Review of Systems - Review of Systems Notes: Symptoms reported from family members. Patient unable to speak the report that the patient has been complaining of more pain in his throat. Refusing to eat. They deny any known fever vomiting diarrhea. -: Yes ROS unobtainable due to patient's medical condition Constitutional: Weakness, Weight loss, Recent illness. denies: Fever EENT: Throat pain, Difficulty swallowing Cardiovascular: No symptoms reported Respiratory: Cough, Short of breath Genitourinary: No symptoms reported Male Genitourinary: No symptoms reported Musculoskeletal: No symptoms reported Skin: No symptoms reported Hematologic/Lymphatic: No symptoms reported Neurological/Psychological: denies: Confusion, Headaches -: Yes All other systems reviewed and negative Physical Exam - Vital signs Vitals: Pulse Ox 70 L 03/07/18 11:16 Interpretation: Hypoxic, Tachypneic - Notes Notes: PHYSICAL EXAMINATION: GENERAL: Ill-appearing, cachectic, in moderate distress HEAD: Atraumatic, normocephalic. EYES: Pupils equal round and reactive to light, extraocular movements intact, sclera anicteric, conjunctiva are normal. ENT: Nares patent, copious secretions from mouth and trach site. No purulent secretions. Patient unable to fully open mouth secondary to pain. NECK: Trachea stoma with clear copious secretions, no purulent discharge. LUNGS: Diminished breath sounds bilaterally secondary to effort HEART: Regular rate and rhythm without murmurs ABDOMEN: Soft, nontender, nondistended abdomen. No guarding, no rebound. No masses appreciated. Musculoskeletal: Normal range of motion, no pitting or edema. No cyanosis. NEUROLOGICAL: Cranial nerves grossly intact. Normal speech, normal gait. Normal sensory, motor exams PSYCH: Normal mood, normal affect. SKIN: Warm, Dry, normal turgor, no rashes or lesions noted. Appearing, cachectic, malnourished. Course - Re-evaluation Re-evalutation: Laboratory 03/07/18 03/07/18 03/07/18 11:25 11:25 11:25 WBC 7.9 RBC 5.27 Hgb 14.7 Hct 44.2 MCV 84 MCH 27.8 MCHC 33.2 RDW 16.3 H Plt Count 410 Seg Neutrophils % 72.5 Lymphocytes % 18.1 Monocytes % 7.1 Eosinophils % 1.2 Basophils % 1.1 Absolute Neutrophils 5.7 Absolute Lymphocytes 1.4 Absolute Monocytes 0.6 Absolute Eosinophils 0.1 Absolute Basophils 0.1 Sodium 143.9 Potassium 4.2 Chloride 104 Carbon Dioxide 25 Anion Gap 15 BUN 15 Creatinine 0.95 Est GFR ( Amer) > 60 Est GFR (Non-Af Amer) > 60 Glucose 88 Calcium 10.3 H Total Bilirubin 0.8 Direct Bilirubin 0.4 Neonat Total Bilirubin Not Reportable Neonat Direct Bilirubin Not Reportable Neonat Indirect Bili Not Reportable AST 29 ALT 14 L Alkaline Phosphatase 190 H Creatine Kinase 98 CK-MB (CK-2) 1.40 Troponin I 0.105 Total Protein 7.9 Albumin 4.3 03/07/18 13:[address] Hoover who was present in the emergency department and we reviewed the patient's recent imaging and records. He states that this point he agrees that there is nothing more that hospitalization can offer the patient. He seems to be a good candidate for hospice although his caregiver has stated he has refused. On reevaluation secretions have improved, after suctioning 0.4 mg IM. Patient is oxygenating well, with trach in place.. He reports improvement of his pain. I did explain to the patient that he would likely need to have a feeding tube and hospice consult. Dr. Hoover did state that he will talk to Dr. Hopkins regarding this patient. 03/07/18 14:29 Patient's yani and are now at the bedside. I have discussed with the patient and his support group that admission to the hospital would not offer him any increased quality of life. I discussed that he would likely need a feeding tube which the patient has recently refused. I also discussed comfort care with the patient who is not interested in hospice at this time. Patient does report improvement of pain. His secretions have improved after atropine administration. He is satting 100% with nonrebreather over trach site. He does have oxygen at home that he does not often use but I encouraged him to do so. Cami states that they will take him back to Dr. Hopkins to discuss the possibility of feeding tube placement. CBC is without leukocytosis or anemia. CMP shows no significant electrolyte abnormalities except for a elevated calcium level. Troponin is mildly elevated and I did discuss this with Dr. Hoover who states that there is nothing to do for this patient. He is not a candidate for catheterization and patient denies chest pain,. Patient and family members are comfortable with discharge home. Patient was evaluated and treated as appropriate for the patient's presenting symptoms and complaint, with consideration of any critical or life threatening conditions that may be associated with their obtained history and exam as noted above. All results were discussed with patient. Patient provided the opportunity to ask questions, and express concerns. Patient was educated on treatments based on their presumed diagnosis as noted above. At this time we will discharge the patient with return precautions and follow-up recommendations. Verbal discharge instructions given a the bedside. Medication warnings reviewed. Patient is in agreement with this plan and has verbalized understanding of return precautions. After careful consideration I feel that that patient can be safely discharged from the emergency department, they were advised to followup with a primary care physician in 2-3 days. Dictation on this chart was performed using voice recognition software and may result in unintended grammatical, spelling, syntax or errors. 03/09/18 11:30 - Vital Signs Vital signs: Temp Pulse Resp BP Pulse Ox 97.6 F 64 25 H 159/81 H 100 03/07/18 15:08 03/07/18 15:08 03/07/18 15:08 03/07/18 15:08 03/07/18 15:08 - Laboratory Result Diagrams: 03/07/18 11:25 03/07/18 11:25 Laboratory results interpreted by me: 03/07/18 03/07/18 11:25 11:25 RDW 16.3 H Calcium 10.3 H ALT 14 L Alkaline Phosphatase 190 H - Diagnostic Test Radiology reviewed: Image reviewed, Reports reviewed - EKG Interpretation by Me EKG shows normal: Sinus rhythm Rate: Normal Rhythm: NSR When compared to previous EKG there are: No significant change Discharge - Discharge Clinical Impression: Dysphasia, Recurrent laryngeal squamous cell carcinoma, Elevated troponin Difficulty swallowing Qualifiers: Dysphagia type: oropharyngeal phase Qualified Code(s): R13.12 - Dysphagia, oropharyngeal phase Dyspnea Qualifiers: Dyspnea type: unspecified Qualified Code(s): R06.00 - Dyspnea, unspecified Failure to thrive Qualifiers: Failure to thrive age range: in adult Qualified Code(s): R62.7 - Adult failure to thrive Disposition: HOME, SELF-CARE Instructions: Dysphagia ([facility]) Additional Instructions: Please follow-up with your primary care physician Dr. Hopkins to discuss feeding tube placement and comfort care measures. Follow up with your [id number] hours for further care or return to the ED IMMEDIATELY if symptoms worsen or you have any concerns. If you cannot afford to follow up with your primary care physician a list of low cost clinics have been provided at the end of your discharge papers as well. Most prescribed medications have multiple side effects. The safest thing to do is when filling your prescription speak to your pharmacist regarding possible interactions with your normal home medications and over the counter medications such as Ibuprofen, Tylenol, Benadryl. If you experience any symptoms that cause you discomfort or concern you should discontinue the medication immediately and return to the emergency room or call your primary care physician. Referrals: HETAL HOPKINS MD [Primary Care Provider] - Follow up as needed
[2018-03-07 12:53] LABS: CREATINE KINASE MB 1.4 ng/mL (<4.55)
[2018-03-07 12:55] LABS: TROPONIN I 0.105 ng/mL
[2018-03-07] MEDS ORDERED: NORMAL SALINE 1000 ML 1,000 ML IV ONE (13:17)
[2018-03-07 15:09] VITALS: BP 159/81
--- NOTE | 2018-03-07 16:26 | EKG REPORT ---
SEVERITY:- ABNORMAL ECG - SINUS RHYTHM PROBABLE LEFT ATRIAL ABNORMALITY NONSPECIFIC INTRAVENTRICULAR CONDUCTION DELAY EARLY TRANSITION IN ANTERIOR PRECORDIAL LEADS, NEED TO R/O OLD TRUE POST [place]., CLINICAL CORRELATION NE EDED. : Confirmed by: Lorenzo Schmid MD 07-Mar-2018 16:25:05
== END 2018-03-07 15:09 | disposition home or self-care (01) ==
LOC: ER 11:07
DX: R13.12 Dysphagia, oropharyngeal phase (principal); R13.10 Dysphagia, unspecified; R06.00 Dyspnea, unspecified; R62.7 Adult failure to thrive; R79.89 Other specified abnormal findings of blood chemistry; R05 Cough; R63.0 Anorexia; R68.84 Jaw pain; Z85.21 Personal history of malignant neoplasm of larynx; J44.9 Chronic obstructive pulmonary disease, unspecified
CPT/HCPCS: 93005; 96376; 94640; 99285; 96372; 96361; 96374; 36415; 82553; 82550; 85025; 80053; 84484; 71045; 93010; J0461; J3010; J7030; A9270; J7620

== ENCOUNTER 2018-03-24 11:57 | Observation (INO) | payer MEDICARE, MEDICAID ==
[2018-03-24 13:05] LABS: ABSOLUTE BASOPHILS # (AUTO) 0.1 10^3/uL (0.0-0.2); ABSOLUTE EOSINOPHILS # (AUTO) 0.1 10^3/uL (0.0-0.6); ABSOLUTE LYMPHOCYTES (AUTO) 0.8 10^3/uL (0.5-4.7); ABSOLUTE MONOCYTES (AUTO) 0.4 10^3/uL (0.1-1.4); ABSOLUTE NEUT (AUTO) 4.5 10^3/uL (1.7-8.2); BASOPHILS % (AUTO) 1.4 % (0-2); EOSINOPHILS % (AUTO) 1.1 % (0-6); HEMATOCRIT 43.2 % (37.9-51.0); HEMOGLOBIN 14.5 g/dL (13.5-17.0); LYMPHOCYTES % (AUTO) 13.7 % (13-45); MEAN CORPUSCULAR HEMOGLOBIN 28.3 pg (27.0-33.4); MEAN CORPUSCULAR HGB CONC 33.6 g/dL (32.0-36.0); MEAN CORPUSCULAR VOLUME 84 fl (80-97); PLATELET COUNT 291 10^3/uL (150-450); RED BLOOD COUNT 5.13 10^6/uL (4.35-5.55); RED CELL DISTRIBUTION WIDTH 16.2 % (11.5-14.0); SEGMENTED NEUTROPHILS % (AUTO) 77.8 % (42-78); TOTAL CELLS COUNTED % (AUTO) 100 %; WHITE BLOOD COUNT 5.8 10^3/uL (4.0-10.5)
[2018-03-24 13:20] LABS: ANION GAP 13 (5-19); BLOOD UREA NITROGEN 16 mg/dL (7-20); CARBON DIOXIDE 29 mmol/L (22-30); CHLORIDE 105 mmol/L (98-107); GLUCOSE 130 mg/dL (75-110); POTASSIUM 4.2 mmol/L (3.6-5.0)
[2018-03-24] MEDS ORDERED: BISACODYL 10 MG SUPP.RECT PR PRN (17:30)
[2018-03-24] MEDS ORDERED: DOCUSATE SODIUM 100 MG/10 ML UDC PO PRN (17:30)
[2018-03-24] MEDS ORDERED: (PENDING PHARMACY ID) (Acetaminophen [Tylenol Extra Strength] 500 MG) PO PRN (17:30)
[2018-03-24] MEDS ORDERED: NORMAL SALINE FOR INHALATION 5 ML VIAL.NEB NEB PRN (17:30)
[2018-03-24] MEDS ORDERED: SCOPOLAMINE HYDROBROMIDE 1.5 MG PATCH.TD72 TD PRN (17:30)
[2018-03-24] MEDS ORDERED: (PENDING PHARMACY ID) (Naloxone Hcl [Narcan] 4 MG) NS PRN (17:30)
[2018-03-24] MEDS ORDERED: ACETAMINOPHEN 325 MG TABLET PO PRN (17:38)
--- NOTE | 2018-03-24 17:58 | PDOC H&P ---
History of Present Illness Admission Date/PCP: 03/24/18 11:57 [facility] History of Present Illness: LEONARD CAAL is a 72 year old male, He has recurrent laryngeal cancer, dysphagia, dehydration, patient is admitted essentially for the placement of feeding tube. Past Medical History Cardiac Medical History: Reports: Atrial Fibrillation, Hyperlipidema, Hypertension Pulmonary Medical History: Reports: Chronic Obstructive Pulmonary Disease (COPD) Malignancy Medical History: Reports: Other - Recurrent laryngeal cancer GI Medical History: Reports: Gastroesophageal Reflux Disease, Hiatal Hernia Hematology: Denies: Anemia Past Surgical History Past Surgical History: Reports: Vascular Surgery - left external carotic dissection w/ lysis & anastomosis, Other - Supraglottic mass resection and trach placement at [facility]. Social History Smoking Status: Former Smoker Frequency of Alcohol Use: Rare Hx Recreational Drug Use: No Drugs: None Hx Prescription Drug Abuse: No Family History Family History: Reviewed & Not Pertinent Parental Family History Reviewed: Yes Children Family History Reviewed: Yes Sibling(s) Family History Reviewed.: Yes Medication/Allergy Home Medications: Mirtazapine [Remeron 15 mg Tablet] 15 mg PO QHS 09/25/16 RX: Acetaminophen [Tylenol Extra Strength] 500 mg PO Q6HP PRN 02/19/18 RX: Apixaban [Eliquis 2.5 mg Tablet] 2.5 mg PO Q12 02/19/18 RX: Aspirin [Aspirin EC] 81 mg PO DAILY 02/19/18 RX: Atorvastatin Calcium [Lipitor 80 mg Tablet] 80 mg PO QHS 02/19/18 RX: Bisacodyl [Dulcolax 10 mg Supp.rect] 10 mg [place] DAILYP PRN 02/19/18 RX: Buspirone HCl [Buspar 5 mg Tablet] 5 mg PO Q12 02/19/18 RX: Calcitriol [Rocaltrol 1 mcg/1 mL Oral Soln 15 mL] 0.3 mcg PO Q12 02/19/18 RX: Calcium Carbonate [Os-[place] 500 mg Tablet (Oyster-Shell)] 500 mg PO TID RX: Diclofenac Sodium [Voltaren] 4 gm TP BID 02/19/18 RX: Docusate Sodium 10 ml PO BIDP PRN 02/19/18 RX: Ipratropium/Albuterol Sulfate [Duoneb 3 ml Ampul] 3 ml NEB RTQ6 02/19/18 RX: Levothyroxine Sodium [Synthroid] 112 mcg PO Q6AM 02/19/18 RX: Lisinopril [Prinivil 5 mg Tablet] 5 mg PO DAILY 02/19/18 RX: Metoprolol Tartrate [Lopressor 25 mg Tablet] 25 mg PO Q12 MDD HOLD FOR BP< 100 02/19/18 RX: Naloxone HCl [Narcan] 4 mg NS .ASDIR PRN 02/19/18 RX: Omeprazole 20 mg PO QHS 02/19/18 RX: Oxycodone HCl [Oxy-Ir 5 mg Tablet] 10 mg PO Q8HP PRN 02/19/18 RX: Sennosides [Senna] 17.2 mg PO QHS 02/19/18 RX: Sodium Chloride For Inhalation [Sodium Chloride] 1 vial IH Q4HP PRN RX: Scopolamine 1 each TD Q72HP PRN 03/24/18 Allergies/Adverse Reactions: No Known Drug Allergies Allergy (Unknown, Verified 03/01/18 17:01) Review of Systems Constitutional: PRESENT: weight loss Respiratory: PRESENT: dyspnea Gastrointestinal: PRESENT: dysphagia Endocrine: PRESENT: cold intolerance Physical Exam Vital Signs: Temp Pulse Resp BP Pulse Ox 98.3 F 71 17 108/47 L 97 03/24/18 15:43 03/24/18 15:43 03/24/18 15:43 03/24/18 15:43 03/24/18 15:43 Intake & Output 03/23/18 03/24/18 03/25/18 06:59 06:59 06:59 Weight 69.2 kg General appearance: PRESENT: thin Head exam: PRESENT: atraumatic, normocephalic Eye exam: PRESENT: PERRLA Neck exam: PRESENT: full ROM, tracheostomy Respiratory exam: PRESENT: rhonchi Cardiovascular exam: PRESENT: RRR, +S1, +S2 Pulses: PRESENT: normal dorsalis pedis pul, +2 pedal pulses bilateral Vascular exam: PRESENT: normal capillary refill GI/Abdominal exam: PRESENT: normal bowel sounds, soft Rectal exam: PRESENT: deferred Neurological exam: PRESENT: alert Psychiatric exam: ABSENT: homicidal ideation, suicidal ideation Skin exam: PRESENT: dry, intact, warm Results Laboratory Results: 03/24/18 12:50 03/24/18 12:50 03/24/18 03/24/18 12:50 12:50 WBC 5.8 RBC 5.13 Hgb 14.5 Hct 43.2 MCV 84 MCH 28.3 MCHC 33.6 RDW 16.2 H Plt Count 291 Seg Neutrophils % 77.8 Lymphocytes % 13.7 Monocytes % 6.0 Eosinophils % 1.1 Basophils % 1.4 Absolute Neutrophils 4.5 Absolute Lymphocytes 0.8 Absolute Monocytes 0.4 Absolute Eosinophils 0.1 Absolute Basophils 0.1 Sodium 147.0 H Potassium 4.2 Chloride 105 Carbon Dioxide 29 Anion Gap 13 BUN 16 Creatinine 1.01 Est GFR ( Amer) > 60 Est GFR (Non-Af Amer) > 60 Glucose 130 H Calcium 10.0 Assessment & Plan - Diagnosis (1) Recurrent laryngeal squamous cell carcinoma Is this a current diagnosis for this admission?: Yes Plan: This patient is admitted for observation for the placement of feeding tube (2) Dysphagia Qualifiers: Dysphagia type: unspecified Qualified Code(s): R13.10 - Dysphagia, unspecified Is this a current diagnosis for this admission?: Yes (3) Dehydration Is this a current diagnosis for this admission?: Yes
[2018-03-24] MEDS ORDERED: (PENDING PHARMACY ID) (Diclofenac Sodium [Voltaren] 4 GM) TP SCH (18:00)
[2018-03-24] MEDS: IPRATROPIUM/ALBUTEROL 0.5-2.5 MG/3 ML AMPUL NEB SCH (19:55)
[2018-03-24] MEDS: CALCIUM CARBONATE 500 MG TABLET PO SCH (21:14)
[2018-03-24] MEDS: ATORVASTATIN CALCIUM 80 MG TABLET PO SCH (21:15)
[2018-03-24] MEDS: APIXABAN 2.5 MG TABLET PO SCH (21:15)
[2018-03-24] MEDS: BUSPIRONE HCL 10 MG TABLET PO SCH (21:15)
[2018-03-24] MEDS: METOPROLOL TARTRATE 25 MG TABLET PO SCH (21:15)
[2018-03-24] MEDS: CALCITRIOL 1 MCG/ML ORAL SOLN 15 ML PO SCH (21:16)
[2018-03-24] MEDS: LANSOPRAZOLE 15 MG TAB.RAP.DR PO SCH (21:16)
[2018-03-24] MEDS: MIRTAZAPINE 15 MG TABLET PO SCH (21:16)
[2018-03-24] MEDS: SENNOSIDES/DOCUSATE 8.6-50 MG 1 EACH TABLET PO SCH (21:17)
[2018-03-24] MEDS ORDERED: (PENDING PHARMACY ID) (Sennosides [Senna] 17.2 MG) PO SCH (22:00)
[2018-03-24] MEDS ORDERED: (PENDING PHARMACY ID) (Buspirone Hcl [Buspar 5 Mg Tablet] 5 MG) PO SCH (22:00)
[2018-03-25] MEDS: IPRATROPIUM/ALBUTEROL 0.5-2.5 MG/3 ML AMPUL NEB SCH ×4 (02:17→20:55)
[2018-03-25] MEDS: LEVOTHYROXINE SODIUM 0.112 MG TABLET PO SCH (05:02)
--- NOTE | 2018-03-25 07:20 | PDOC CONSULTATION ---
Consultation Consult Date: 03/24/18 Consult reason:: Stage IV laryngeal cancer. Inanition. Needs feeding tube. History of Present Illness Admission Date/PCP: 03/24/18 11:57 JEMMA HAILE History of Present Illness: LEONARD CAAL is a 72 year old male seen at the request of Dr. Elam. The patient has a history of laryngectomy for laryngeal cancer. He was recently diagnosed with recurrence and metastasis. The patient previously had a PEG. The patient is experiencing pain and difficulty with initiation of swallowing. His pain is mostly on the right side. It happens anytime he swallows solids or liquids. His pain is rated at 6 out of 10. It is sharp and stabbing. He is requesting a feeding tube so that he may ingest medications and nutritional supplements. The patient denies chest pain, shortness of breath, fevers, chills. He does report weight loss, malaise, and neck pain. Past Medical History Cardiac Medical History: Reports: Atrial Fibrillation, Hyperlipidema, Hypertension Denies: Coronary Artery Disease, Myocardial Infarction Pulmonary Medical History: Reports: Chronic Obstructive Pulmonary Disease (COPD) Denies: Asthma, Bronchitis, Pneumonia Neurological Medical History: Denies: Seizures GI Medical History: Reports: Gastroesophageal Reflux Disease, Hiatal Hernia Musculoskeltal Medical History: Denies: Arthritis Psychiatric Medical History: Denies: Depression Hematology: Denies: Anemia Past Surgical History Past Surgical History: Reports: Vascular Surgery - left external carotic dissection w/ lysis & anastomosis, Other - Supraglottic mass resection and trach placement at [facility]. Social History Smoking Status: Former Smoker Frequency of Alcohol Use: Rare Hx Recreational Drug Use: No Drugs: None Hx Prescription Drug Abuse: No Family History Family History: Reviewed & Not Pertinent Parental Family History Reviewed: Yes Children Family History Reviewed: Yes Sibling(s) Family History Reviewed.: Yes Medication/Allergy Home Medications: Mirtazapine [Remeron 15 mg Tablet] 15 mg PO QHS 09/25/16 Acetaminophen [Tylenol Extra Strength] 500 mg PO Q6HP PRN 02/19/18 Apixaban [Eliquis 2.5 mg Tablet] 2.5 mg PO Q12 02/19/18 Aspirin [Aspirin EC] 81 mg PO DAILY 02/19/18 Atorvastatin Calcium [Lipitor 80 mg Tablet] 80 mg PO QHS 02/19/18 Bisacodyl [Dulcolax 10 mg Supp.rect] 10 mg CO DAILYP PRN 02/19/18 Buspirone HCl [Buspar 5 mg Tablet] 5 mg PO Q12 02/19/18 Calcitriol [Rocaltrol 1 mcg/1 mL Oral Soln 15 mL] 0.3 mcg PO Q12 02/19/18 Calcium Carbonate [Os-London 500 mg Tablet (Oyster-Shell)] 500 mg PO TID 02/19/18 Diclofenac Sodium [Voltaren] 4 gm TP BID 02/19/18 Docusate Sodium 10 ml PO BIDP PRN 02/19/18 Ipratropium/Albuterol Sulfate [Duoneb 3 ml Ampul] 3 ml NEB RTQ6 02/19/18 Levothyroxine Sodium [Synthroid] 112 mcg PO Q6AM 02/19/18 Lisinopril [Prinivil 5 mg Tablet] 5 mg PO DAILY 02/19/18 Metoprolol Tartrate [Lopressor 25 mg Tablet] 25 mg PO Q12 MDD HOLD FOR BP<100 Naloxone HCl [Narcan] 4 mg NS .ASDIR PRN 02/19/18 Omeprazole 20 mg PO QHS 02/19/18 Oxycodone HCl [Oxy-Ir 5 mg Tablet] 10 mg PO Q8HP PRN 02/19/18 Sennosides [Senna] 17.2 mg PO QHS 02/19/18 Sodium Chloride For Inhalation [Sodium Chloride] 1 vial IH Q4HP PRN 02/19/18 Scopolamine 1 each TD Q72HP PRN 03/24/18 Allergies/Adverse Reactions: No Known Drug Allergies Allergy (Unknown, Verified 03/01/18 17:01) Review of Systems Constitutional: PRESENT: weight loss. ABSENT: chills, fever(s) Eyes: ABSENT: visual disturbances Ears: ABSENT: hearing changes Nose, Mouth, and Throat: PRESENT: mouth pain, sore throat Cardiovascular: ABSENT: chest pain Respiratory: ABSENT: cough Gastrointestinal: ABSENT: abdominal pain, bloating Genitourinary: ABSENT: dysuria Musculoskeletal: ABSENT: back pain Integumentary: ABSENT: pruritus, rash Neurological: PRESENT: weakness. ABSENT: dizziness Psychiatric: ABSENT: anxiety, depression Endocrine: ABSENT: cold intolerance, heat intolerance Hematologic/Lymphatic: ABSENT: easy bleeding, easy bruising Physical Exam Vital Signs: Temp Pulse Resp BP Pulse Ox 97.4 F 81 22 H 106/74 90 L 03/24/18 12:45 03/24/18 14:00 03/24/18 12:45 03/24/18 12:45 03/24/18 12:45 Intake & Output 03/23/18 03/24/18 03/25/18 06:59 06:59 06:59 Weight 69.2 kg General appearance: PRESENT: thin Head exam: PRESENT: atraumatic, normocephalic Eye exam: PRESENT: EOMI, PERRLA. ABSENT: scleral icterus Teeth exam: PRESENT: poor dentation Neck exam: ABSENT: meningismus, tenderness, thyromegaly, tracheal deviation Respiratory exam: PRESENT: clear to auscultation perlita. ABSENT: chest wall tenderness Cardiovascular exam: PRESENT: RRR Pulses: PRESENT: normal radial pulses Vascular exam: PRESENT: normal capillary refill. ABSENT: pallor GI/Abdominal exam: PRESENT: soft. ABSENT: distended, tenderness Rectal exam: PRESENT: deferred Extremities exam: ABSENT: clubbing Musculoskeletal exam: ABSENT: deformity Neurological exam: PRESENT: alert, awake, oriented to person, oriented to place , oriented to time, oriented to situation Psychiatric exam: ABSENT: agitated, anxious, depressed Focused psych exam: ABSENT: delusional Skin exam: ABSENT: cyanosis, jaundice Results Laboratory Results: 03/24/18 12:50 03/24/18 12:50 03/24/18 03/24/18 12:50 12:50 WBC 5.8 RBC 5.13 Hgb 14.5 Hct 43.2 MCV 84 MCH 28.3 MCHC 33.6 RDW 16.2 H Plt Count 291 Seg Neutrophils % 77.8 Lymphocytes % 13.7 Monocytes % 6.0 Eosinophils % 1.1 Basophils % 1.4 Absolute Neutrophils 4.5 Absolute Lymphocytes 0.8 Absolute Monocytes 0.4 Absolute Eosinophils 0.1 Absolute Basophils 0.1 Sodium 147.0 H Potassium 4.2 Chloride 105 Carbon Dioxide 29 Anion Gap 13 BUN 16 Creatinine 1.01 Est GFR ( Amer) > 60 Est GFR (Non-Af Amer) > 60 Glucose 130 H Calcium 10.0 Assessment & Plan - Diagnosis (1) Recurrent laryngeal squamous cell carcinoma Is this a current diagnosis for this admission?: Yes (2) Inanition Is this a current diagnosis for this admission?: Yes - Plan Summary Plan Summary: This is a 72-year-old male with a recurrent squamous cell oropharyngeal cancer. He has progressive dysphagia and inanition. The patient will require a feeding tube to continue receiving medications and nutrition. I have discussed his case with his ENT surgeon at [facility]. His ENT surgeon has agreed that a feeding tube is likely necessary. Dr. Reeder sees no reason why endoscopy cannot be performed to facilitate G tube placement. I will plan to perform this tomorrow. Risks/benefits discussed, informed consent obtained, and all questions answered.
[2018-03-25] MEDS: CALCIUM CARBONATE 500 MG TABLET PO SCH ×3 (08:12→17:12)
[2018-03-25] MEDS ORDERED: MIDAZOLAM 2 MG/2 ML INJ ONE (09:43)
[2018-03-25] MEDS ORDERED: PROPOFOL INJ 200 MG/20 ML VIAL IV ONE (09:43)
[2018-03-25] MEDS ORDERED: BUPIVACAINE HCL 0.5 % INJ/PF 30 ML SDV ONE (09:56)
[2018-03-25] MEDS ORDERED: PROMETHAZINE HCL INJ 25 MG/1 ML VIAL IV PRN ×2 (10:50)
[2018-03-25] MEDS ORDERED: MEPERIDINE HCL/PF INJ 25 MG/1 ML DISP.SYRIN IV PRN (10:50)
[2018-03-25] MEDS ORDERED: FENTANYL CITRATE INJ/PF 100 MCG/2 ML AMPUL IV PRN ×3 (10:50)
[2018-03-25] MEDS ORDERED: DIPHENHYDRAMINE HCL 50 MG/ML VIAL IV PRN (10:50)
[2018-03-25] MEDS ORDERED: OXYCODONE-ACETAMINOPHEN 5-325 MG TABLET PO PRN ×2 (10:50)
--- NOTE | 2018-03-25 11:09 | Operative Report ---
Nonrecallable Operative Report DATE OF SURGERY: 03/25/18 PREOPERATIVE DIAGNOSIS: 1. Laryngeal cancer. 2. Inanition. POSTOPERATIVE DIAGNOSIS: Same as above. OPERATION: Percutaneous, endoscopic assisted gastrostomy placement. SURGEON: FREDRICK NAIK ANESTHESIA: LMAC TISSUE REMOVED OR ALTERED: None COMPLICATIONS: None apparent. ESTIMATED BLOOD LOSS: Minimal PROCEDURE: Drains/implants: 20 Togolese gastrostomy. Procedure in detail: After informed consent was obtained, the patient was brought into the operating room and laid in the supine position. The endoscope was passed down the oropharynx, down the esophagus, and into the stomach. The stomach was insufflated with air. The previous gastrostomy site was easily identified both internally and externally. One-to-one ballottement was used to confirm that the previous tract was seen entering the stomach. An 11 blade scalpel was used to create an incision within the previous gastrostomy tract. A Julianna clamp was inserted through the tract and into the stomach. A 20 Togolese gastrostomy was then inserted through the tract and into the stomach. This was confirmed with direct visualization using the endoscope. The balloon was inflated. The bumper was tightened to 3 cm at the skin. The tube was sutured to the anterior abdominal wall using 2-0 Ethibond suture. A dressing was placed , and the procedure was concluded. All sponge, instrument, and needle counts were correct x2. Condition: Fair.
[2018-03-25] MEDS: FENTANYL CITRATE INJ/PF 100 MCG/2 ML AMPUL ONE ×2 (11:15→11:20)
[2018-03-25] MEDS: ASPIRIN 81 MG TABLET, ENT COATED PO SCH (12:46)
[2018-03-25] MEDS: LISINOPRIL 5 MG TABLET PO SCH (12:46)
[2018-03-25] MEDS: METOPROLOL TARTRATE 25 MG TABLET PO SCH ×2 (12:47→21:40)
[2018-03-25] MEDS: BUSPIRONE HCL 10 MG TABLET PO SCH ×2 (12:47→21:40)
[2018-03-25] MEDS: APIXABAN 2.5 MG TABLET PO SCH ×2 (12:47→21:38)
[2018-03-25] MEDS: CALCITRIOL 1 MCG/ML ORAL SOLN 15 ML PO SCH ×2 (12:54→21:41)
[2018-03-25] MEDS: OXYCODONE HCL IR 5 MG TABLET PO PRN (14:56)
--- NOTE | 2018-03-25 20:23 | PDOC DISCHARGE SUMMARY ---
General - Admit/Disc Date/PCP Admission Date/Primary Care Provider: 03/24/18 11:57 JEMMA BAR [facility] Discharge Date: 03/25/18 - Discharge Diagnosis (1) Recurrent laryngeal squamous cell carcinoma Is this a current diagnosis for this admission?: Yes (2) Dysphagia Is this a current diagnosis for this admission?: Yes (3) Dehydration Is this a current diagnosis for this admission?: Yes - Additional Information Resuscitation Status: Full Code Home Medications: Mirtazapine [Remeron 15 mg Tablet] 15 mg PO QHS 09/25/16 Acetaminophen [Tylenol Extra Strength] 500 mg PO Q6HP PRN 02/19/18 Apixaban [Eliquis 2.5 mg Tablet] 2.5 mg PO Q12 02/19/18 Bisacodyl [Dulcolax 10 mg Supp.rect] 10 mg NE DAILYP PRN 02/19/18 Buspirone HCl [Buspar 5 mg Tablet] 5 mg PO Q12 02/19/18 Calcitriol [Rocaltrol 1 mcg/1 mL Oral Soln 15 mL] 0.3 mcg PO Q12 02/19/18 Calcium Carbonate [Os-London 500 mg Tablet (Oyster-Shell)] 500 mg PO TID 02/19/18 Diclofenac Sodium [Voltaren] 4 gm TP BID 02/19/18 Docusate Sodium 10 ml PO BIDP PRN 02/19/18 Ipratropium/Albuterol Sulfate [Duoneb 3 ml Ampul] 3 ml NEB RTQ6 02/19/18 Levothyroxine Sodium [Synthroid] 112 mcg PO Q6AM 02/19/18 Lisinopril [Prinivil 5 mg Tablet] 5 mg PO DAILY 02/19/18 Metoprolol Tartrate [Lopressor 25 mg Tablet] 25 mg PO Q12 MDD HOLD FOR BP<100 Naloxone HCl [Narcan] 4 mg NS .ASDIR PRN 02/19/18 Omeprazole 20 mg PO QHS 02/19/18 Oxycodone HCl [Oxy-Ir 5 mg Tablet] 10 mg PO Q8HP PRN 02/19/18 Sennosides [Senna] 17.2 mg PO QHS 02/19/18 Scopolamine 1 each TD Q72HP PRN 03/24/18 History of Present Illness History of Present Illness: LEONARD CAAL is a 72 year old male, He has recurrent laryngeal cancer, dysphagia, dehydration, patient is admitted essentially for the placement of feeding tube. Hospital Course Hospital Course: Patient was admitted essentially for placement of a feeding tube, this was done today by the surgeon, a PEG tube was inserted. He has underlining recurrent laryngeal cancer, hospice care was recommended for this patient but he declined hospice Physical Exam Vital Signs: Temp Pulse Resp BP Pulse Ox 99.2 F 80 22 H 131/83 H 98 03/25/18 19:38 03/25/18 19:38 03/25/18 19:38 03/25/18 19:38 03/25/18 19:38 Intake & Output 03/24/18 03/25/18 03/26/18 06:59 06:59 06:59 Intake Total 350 660 Output Total 250 60 Balance 100 600 Weight 71.2 kg Eye exam: PRESENT: PERRLA Respiratory exam: PRESENT: decreased breath sounds Cardiovascular exam: PRESENT: +S1, +S2 GI/Abdominal exam: PRESENT: soft - PEG tube in place Results Laboratory Results: 03/24/18 12:50 03/24/18 12:50 Qualifiers - * PATIENT BEING DISCHARGED WITH ANY OF THE FOLLOWING DIAGNOSIS: No
[2018-03-25] MEDS: SENNOSIDES/DOCUSATE 8.6-50 MG 1 EACH TABLET PO SCH (21:38)
[2018-03-25] MEDS: ATORVASTATIN CALCIUM 80 MG TABLET PO SCH (21:40)
[2018-03-25] MEDS: MIRTAZAPINE 15 MG TABLET PO SCH (21:40)
[2018-03-25] MEDS: LANSOPRAZOLE 15 MG TAB.RAP.DR PO SCH (21:40)
[2018-03-26] MEDS: IPRATROPIUM/ALBUTEROL 0.5-2.5 MG/3 ML AMPUL NEB SCH ×3 (02:19→13:37)
[2018-03-26] MEDS: LEVOTHYROXINE SODIUM 0.112 MG TABLET PO SCH (05:18)
[2018-03-26] MEDS: OXYCODONE HCL IR 5 MG TABLET PO PRN ×2 (08:09→15:39)
[2018-03-26] MEDS: LISINOPRIL 5 MG TABLET PO SCH (09:07)
[2018-03-26] MEDS: METOPROLOL TARTRATE 25 MG TABLET PO SCH (09:08)
[2018-03-26] MEDS: ASPIRIN 81 MG TABLET, ENT COATED PO SCH (09:08)
[2018-03-26] MEDS: BUSPIRONE HCL 10 MG TABLET PO SCH (09:09)
[2018-03-26] MEDS: CALCIUM CARBONATE 500 MG TABLET PO SCH ×3 (09:09→16:57)
[2018-03-26] MEDS: CALCITRIOL 1 MCG/ML ORAL SOLN 15 ML PO SCH (09:10)
[2018-03-26 17:00] VITALS: BP 106/74
== END 2018-03-26 17:56 | disposition home health service (06) ==
LOC: 3W 11:57
PROVIDERS: ADMIT Internal Medicine; ATTEND Internal Medicine
PROC: 0DH63UZ Insertion of Feeding Device into Stomach, Percutaneous Approach (ICD-10-PCS; principal; 2018-03-25 16:45)
DX: C32.9 Malignant neoplasm of larynx, unspecified (principal); R13.10 Dysphagia, unspecified; E86.0 Dehydration; R64 Cachexia; E78.5 Hyperlipidemia, unspecified; I10 Essential (primary) hypertension; I48.91 Unspecified atrial fibrillation; Z79.899 Other long term (current) drug therapy; Z79.02 Long term (current) use of antithrombotics/antiplatelets; Z87.891 Personal history of nicotine dependence; Z98.890 Other specified postprocedural states; Z90.02 Acquired absence of larynx; Z68.1 Body mass index [BMI] 19.9 or less, adult; Z85.21 Personal history of malignant neoplasm of larynx
CPT/HCPCS: 43246; 36415; 85025; 80048; 94640 ×3; G0378 ×3; G0379; A9270 ×31; J2250; J3490 ×2; J3010; J2704; 731; J7620

== ENCOUNTER 2018-03-28 07:25 | Emergency (ER) | payer MEDICARE, MEDICAID ==
[2018-03-28] MEDS ORDERED: IPRATROPIUM/ALBUTEROL 0.5-2.5 MG/3 ML AMPUL NEB ONE (07:55)
[2018-03-28] MEDS ORDERED: ALBUTEROL SULFATE 0.083% NEB 2.5 MG/3 ML AMPUL NEB ONE (07:56)
--- NOTE | 2018-03-28 08:01 | ER Document Report ---
ED General - General Stated Complaint: DIFFICULTY BREATHING Time Seen by Provider: 03/28/18 07:46 TRAVEL OUTSIDE OF THE [place] IN LAST 30 DAYS: No - HPI Notes: Patient is a 72-year-old male that presents to the emergency department for chief complaint of shortness of breath. Patient has throat cancer and tracheostomy. This morning he had acute onset of shortness of breath. Family states he wears as needed oxygen but they were unable to figure out how to connect the tubing which is why they called EMS. When EMS arrived patient was having increased work of breathing and his oxygen saturation was in the low 90s therefore they recommended evaluation in the emergency room. Patient currently states he is feeling better now that the trach mask oxygen has been started. He is still having some shortness of breath. He is nonverbal at baseline because of his cancer and surgeries which does limit HPI. He denies any chest pain, nausea, vomiting or diaphoresis. Patient did recently have a PEG tube placed. He reports some pain around the PEG tube. Family states it is not being used yet. Patient does have home health which usually provide suctioning, she had not arrived yet this morning to suction the patient. He also has home breathing treatments for COPD but has not used them today per family. Past Medical History: Throat cancer, hypertension, hypothyroidism, COPD Past Surgical History: PEG tube, tracheostomy Social History: Reviewed in chart Family History: Reviewed and noncontributory for presenting illness Allergies: Reviewed, see documented allergy list. REVIEW OF SYSTEMS: CONSTITUTIONAL : No fever No chills No diaphoresis No recent illness EENT: No vision changes No congestion No sore throat CARDIOVASCULAR: No chest pain No palpitations RESPIRATORY: shortness of breath cough No difficulty breathing GASTROINTESTINAL: No abdominal pain No nausea No vomiting No diarrhea GENITOURINARY: No dysuria No hematuria No difficulty urinating MUSCULOSKELETAL: No back pain No leg pain No arm pain SKIN: No rashes No lesions LYMPHATIC: No swollen, enlarged glands. NEUROLOGICAL: No lightheadedness No headache No weakness No paresthesias PSYCHIATRIC: No anxiety No depression PHYSICAL EXAMINATION: Vital signs reviewed, nursing noted reviewed. GENERAL: Well-appearing, well-nourished and in no acute distress. HEAD: Atraumatic, normocephalic. EYES: Eyes appear normal, extraocular movements intact, sclera anicteric, conjunctiva are normal. ENT: nares patent, oropharynx clear without exudates. Copious mucus in oropharynx NECK: Tracheostomy clean, no bleeding or drainage. Normal range of motion, supple without lymphadenopathy LUNGS: No accessory muscle use. Diminished lung sounds bilaterally with no rhonchi HEART: Regular rate and rhythm without murmurs ABDOMEN: Soft, mild tenderness surrounding upper abdominal G-tube. G-tube ostomy intact with mild drainage and no bleeding, normoactive bowel sounds. No rebound, guarding, or rigidity. No masses appreciated. EXTREMITIES: Nontender, good range of motion, no pitting or edema. NEUROLOGICAL: No focal neurological deficits. Moves all extremities spontaneously Motor and sensory grossly intact on exam. PSYCH: Normal mood, normal affect. SKIN: Warm, Dry, normal turgor, no rashes or lesions noted on exposed skin - Related Data Allergies/Adverse Reactions: No Known Drug Allergies Allergy (Unknown, Verified 03/01/18 17:01) Past Medical History - Social History Smoking Status: Former Smoker Family History: Reviewed & Not Pertinent - Past Medical History Cardiac Medical History: Reports: Hx Atrial Fibrillation, Hx Hypercholesterolemia, Hx Hypertension Denies: Hx Coronary Artery Disease, Hx Heart Attack Pulmonary Medical History: Reports: Hx COPD Denies: Hx Asthma, Hx Bronchitis, Hx Pneumonia Neurological Medical History: Denies: Hx Cerebrovascular Accident, Hx Seizures Renal/ Medical History: Denies: Hx Peritoneal Dialysis GI Medical History: Reports: Hx Gastroesophageal Reflux Disease, Hx Hiatal Hernia Musculoskeletal Medical History: Denies Hx Arthritis Psychiatric Medical History: Denies: Hx Depression Past Surgical History: Reports: Hx Thyroid Surgery - total w/ central neck dissection, Hx Vascular Surgery - left external carotic dissection w/ lysis & anastomosis, Other - Supraglottic mass resection and trach placement at [facility]. - Immunizations Hx Diphtheria, Pertussis, Tetanus Vaccination: Yes Review of Systems - Review of Systems Notes: Dictated Physical Exam - Vital signs Vitals: Resp BP Pulse Ox 19 140/83 H 98 03/28/18 07:36 03/28/18 07:36 03/28/18 07:36 - Notes Notes: Dictated Course - Re-evaluation Re-evalutation: 03/28/18 08:00 Vitals reviewed. Nursing notes reviewed. Patient was given albuterol and DuoNeb for his COPD. He is oxygenating well on tracheostomy mask and in no acute respiratory distress. 03/28/18 09:20 Patient reevaluated and is feeling much better. His lung sounds are improved. He is now oxygenating at 100% on room air. Patient has requested that the humidified oxygen be turned back on after my trial on room air for comfort. He does have oxygen at home. His nurse is now at bedside and I discussed his care with her. She will continue home albuterol treatments as needed for continued shortness of breath. Patient would like to go home at this point. He is stable for discharge. His chest x-ray showed no pneumonia and his lab work was unremarkable. He has a normal troponin with no chest pain or EKG changes and I do not suspect acute ACS as a cause of his shortness of breath. Patient will return to the emergency room for any new or worsening symptoms. Discharged. - Vital Signs Vital signs: Temp Pulse Resp BP Pulse Ox 97.8 F 19 132/82 H 99 03/28/18 07:58 03/28/18 08:00 03/28/18 08:00 03/28/18 08:00 - Laboratory Result Diagrams: 03/28/18 07:50 03/28/18 07:50 Laboratory results interpreted by me: 03/28/18 03/28/18 07:50 07:50 RDW 15.8 H Sodium 147.4 H - EKG Interpretation by Me Additional EKG results interpreted by me: 03/28/18 08:31 Interpreted by myself [id number]: Normal sinus rhythm, rate 69, left axis, no ectopy, no ST elevation, no significant change from 03/07/18 Discharge - Discharge Clinical Impression: Shortness of breath, COPD exacerbation Condition: Stable Disposition: HOME, SELF-CARE Instructions: Chronic Obstructive Lung Disease ([facility]) Additional Instructions: Please return to the emergency department if you have any worsening, or concern of your symptoms. Please return to the emergency department if you develop chest pain, difficulty breathing, severe abdominal pain, or ongoing vomiting. Please follow-up with your primary care physician in 2-3 days and any other recommended physicians. If prescribed, take all medications as directed. If you have any questions or concerns do not hesitate to return the emergency department for evaluation. Resume your home albuterol treatments as prescribed. Referrals: JEMMA DALTON, [ACTIVE STAFF] - Follow up in 3-5 days
[2018-03-28 08:02] LABS: ABSOLUTE EOSINOPHILS # (AUTO) 0.1 10^3/uL (0.0-0.6); ABSOLUTE LYMPHOCYTES (AUTO) 1.3 10^3/uL (0.5-4.7); ABSOLUTE MONOCYTES (AUTO) 0.5 10^3/uL (0.1-1.4); BASOPHILS % (AUTO) 0.7 % (0-2); EOSINOPHILS % (AUTO) 1.3 % (0-6); HEMATOCRIT 42.9 % (37.9-51.0); HEMOGLOBIN 14.1 g/dL (13.5-17.0); LYMPHOCYTES % (AUTO) 18.4 % (13-45); MEAN CORPUSCULAR HEMOGLOBIN 27.6 pg (27.0-33.4); MEAN CORPUSCULAR HGB CONC 32.9 g/dL (32.0-36.0); MEAN CORPUSCULAR VOLUME 84 fl (80-97); MONOCYTES % (AUTO) 6.6 % (3-13); PLATELET COUNT 292 10^3/uL (150-450); RED BLOOD COUNT 5.12 10^6/uL (4.35-5.55); RED CELL DISTRIBUTION WIDTH 15.8 % (11.5-14.0); TOTAL CELLS COUNTED % (AUTO) 100 %; WHITE BLOOD COUNT 6.9 10^3/uL (4.0-10.5)
[2018-03-28 08:16] LABS: ANION GAP 15 (5-19); BLOOD UREA NITROGEN 19 mg/dL (7-20); CALCIUM 10.2 mg/dL (8.4-10.2); CARBON DIOXIDE 27 mmol/L (22-30); CHLORIDE 105 mmol/L (98-107); GLUCOSE 103 mg/dL (75-110); POTASSIUM 4.3 mmol/L (3.6-5.0); SODIUM 147.4 mmol/L (137-145)
--- NOTE | 2018-03-28 08:29 | RADIOLOGY REPORT (SQ) ---
EXAM DESCRIPTION: CHEST SINGLE VIEW COMPLETED DATE/TIME: 03/28/2018 8:04 am REASON FOR STUDY: shortness of breath COMPARISON: 03/07/2018. FINDINGS: Single-view chest. Lucency under the right hemidiaphragm is suggested, likely pneumoperitoneum. Right port in place. Lungs clear. Normal cardiomediastinal silhouette. IMPRESSION: Pneumoperitoneum. Clear lungs. Results called to to Connor ALMENDAREZ at08:21 on 03/28/2018. TECHNICAL DOCUMENTATION: JOB ID: [id number] Reading location - IP/workstation name: [email or web address]
[2018-03-28 09:43] VITALS: BP 133/90
--- NOTE | 2018-03-28 10:01 | EKG REPORT ---
SEVERITY:- BORDERLINE ECG - SINUS RHYTHM LEFT AXIS DEVIATION CONSIDER [facility] OR POSTERIOR INFARCT : Confirmed by: Lorenzo Schmid MD 28-Mar-2018 09:59:51
== END 2018-03-28 10:35 | disposition home or self-care (01) ==
LOC: ER 07:25
DX: J44.1 Chronic obstructive pulmonary disease with (acute) exacerbation (principal); R06.02 Shortness of breath; R05 Cough; I10 Essential (primary) hypertension; C14.0 Malignant neoplasm of pharynx, unspecified; Z93.1 Gastrostomy status; Z93.0 Tracheostomy status
CPT/HCPCS: 93005; 94640 ×2; 99285; 36415; 85025; 80048; 84484; 71045; 93010; A9270 ×2; J7620

== ENCOUNTER 2018-04-02 10:57 | Inpatient (IN) | payer MEDICARE, MEDICAID ==
[2018-04-02] MEDS ORDERED: IPRATROPIUM/ALBUTEROL 0.5-2.5 MG/3 ML AMPUL NEB ONE ×2 (11:24→11:42)
[2018-04-02] MEDS ORDERED: METOPROLOL TARTRATE 25 MG TABLET PO ONE (11:43)
[2018-04-02] MEDS ORDERED: ATROPINE SULFATE 1% OPH SOLN 5 ML BOTTLE OD ONE (11:47)
[2018-04-02] MEDS ORDERED: NORMAL SALINE 1000 ML 1,000 ML IV ONE ×2 (11:52→13:37)
--- NOTE | 2018-04-02 12:18 | RADIOLOGY REPORT (SQ) ---
EXAM DESCRIPTION: CHEST SINGLE VIEW COMPLETED DATE/TIME: 04/02/2018 12:06 pm REASON FOR STUDY: sob COMPARISON: 03/28/2018 EXAM PARAMETERS: NUMBER OF VIEWS: One view. TECHNIQUE: Single frontal radiographic view of the chest acquired. RADIATION DOSE: NA LIMITATIONS: None. FINDINGS: LUNGS AND PLEURA: There is a decreased amount of free air beneath the diaphragms. No pulm onary infiltrate or pleural effusion. MEDIASTINUM AND HILAR STRUCTURES: No masses. Contour normal. HEART AND VASCULAR STRUCTURES: Heart normal in size. Normal vasculature. BONES: No acute findings. HARDWARE: Injection port on the right. OTHER: No other significant finding. IMPRESSION: Decreased abdominal free air. No acute cardiopulmonary findings. TECHNICAL DOCUMENTATION: JOB ID: [id number] [employer]- All Rights Reserved Reading location - IP/workstation name: [email or web address]
[2018-04-02] MEDS ORDERED: METOPROLOL TARTRATE PF/INJ 5 MG/5 ML SDV IV ONE ×3 (12:46→16:36)
[2018-04-02 12:54] LABS: ABSOLUTE EOSINOPHILS # (AUTO) 0.1 10^3/uL (0.0-0.6); ABSOLUTE LYMPHOCYTES (AUTO) 0.6 10^3/uL (0.5-4.7); ABSOLUTE MONOCYTES (AUTO) 0.4 10^3/uL (0.1-1.4); ABSOLUTE NEUT (AUTO) 3.8 10^3/uL (1.7-8.2); BASOPHILS % (AUTO) 0.6 % (0-2); EOSINOPHILS % (AUTO) 1.2 % (0-6); HEMATOCRIT 45.7 % (37.9-51.0); HEMOGLOBIN 15.6 g/dL (13.5-17.0); LYMPHOCYTES % (AUTO) 12.7 % (13-45); MEAN CORPUSCULAR HEMOGLOBIN 28.2 pg (27.0-33.4); MEAN CORPUSCULAR VOLUME 83 fl (80-97); MONOCYTES % (AUTO) 8.8 % (3-13); PLATELET COUNT 318 10^3/uL (150-450); RED BLOOD COUNT 5.51 10^6/uL (4.35-5.55); RED CELL DISTRIBUTION WIDTH 15.9 % (11.5-14.0); SEGMENTED NEUTROPHILS % (AUTO) 76.7 % (42-78); TOTAL CELLS COUNTED % (AUTO) 100 %; WHITE BLOOD COUNT 4.9 10^3/uL (4.0-10.5)
[2018-04-02 12:56] LABS: INTERNATIONAL RATION (INR) 1.03
[2018-04-02 13:01] LABS: VENOUS BLOOD BASE EXCESS -0.1 mmol/L; VENOUS BLOOD PCO2 37.5 mmHg (35-63); VENOUS BLOOD PH 7.42 (7.30-7.42)
[2018-04-02] MEDS ORDERED: OXYCODONE HCL IR 5 MG TABLET PO ONE (14:53)
[2018-04-02 14:58] LABS: ALANINE AMINOTRANSFERASE 29 U/L (21-72); ALBUMIN 3.1 g/dL (3.5-5.0); ALKALINE PHOSPHATASE 183 U/L (38-126); ANION GAP 9 (5-19); ASPARTATE AMINO TRANSFERASE 24 U/L (17-59); BILIRUBIN,DIRECT 0.2 mg/dL (0.0-0.4); BILIRUBIN,TOTAL 0.3 mg/dL (0.2-1.3); BLOOD UREA NITROGEN 13 mg/dL (7-20); CARBON DIOXIDE 26 mmol/L (22-30); CHLORIDE 109 mmol/L (98-107); CREATINE KINASE 87 U/L (55-170); GLUCOSE 102 mg/dL (75-110); SODIUM 143.9 mmol/L (137-145); TOTAL PROTEIN 5.9 g/dL (6.3-8.2)
[2018-04-02 15:09] LABS: CREATINE KINASE MB 0.84 ng/mL (<4.55)
[2018-04-02 15:12] LABS: TROPONIN I 0.045 ng/mL
--- NOTE | 2018-04-02 16:53 | RADIOLOGY REPORT (SQ) ---
EXAM DESCRIPTION: CTA CHEST COMPLETED DATE/TIME: 04/02/2018 4:23 pm REASON FOR STUDY: sob tachy hx of throat ca radical surg COMPARISON: 04/02/2018 chest radiograph TECHNIQUE: CT scan of the chest performed using helical scanning technique with dynamic intravenous contrast injection. Images reviewed with lung, soft tissue and bone windows. Reconstructed coronal and sagittal MPR images reviewed. Additional 3 dimensional post-processing performed to develop Maximal Intensity Projection images (NM P). All images stored on PACS. All CT scanners at this facility use dose modulation, iterative reconstruction, and/or weight based d osing when appropriate to reduce radiation dose to as low as reasonably achievable (ALARA). [facility]: Dose Right [facility]: CareDose [facility]: Dose Right [facility]: Teradose 4D [facility]: Au FINANCIERS CONTRAST TYPE AND DOSE: contrast/concentration: Isovue 350.00 mg/ml; Total Contrast Delivered: 74.0 ml; Total Saline Delivered: 80.0 ml Contrast bolus optimized for the pulmonary arteries. Not diagnostic for the aorta. RENAL FUNCTION: GFR > 60. RADIATION DOSE: CT Rad equipment meets quality standard of care and radiation dose reduction techniq ues were employed. CTDIvol: 14.3 - 72.8 mGy. DLP: 603 mGy-cm. . LIMITATIONS: None. FINDINGS: LUNGS AND PLEURA: No masses, infiltrates, or pneumothorax. No pleural effusions or pleura l calcifications. AORTA AND GREAT VESSELS: No aneurysm. Contrast bolus not optimized for the aorta. HEART: No pericardial effusion. No significant coronary artery calcifications. PULMONARY ARTERIES: No emboli visualized in the main pulmonary arteries or the segmental branches. HILAR AND MEDIASTINAL STRUCTURES: There is a Zenker's diverticulum containing contrast. Tracheostomy . HARDWARE: None in the chest. UPPER ABDOMEN: Known free intraperitoneal air. THYROID AND OTHER SOFT TISSUES: No masses. No adenopathy. BONES: No acute or significant finding. 3D MIPS: Confirm above findings. OTHER: No other significant finding. IMPRESSION: No pulmonary emboli. Zenker's diverticulum containing contrast. Free intraperitoneal air, a finding previously reported. COMMENT: Quality ID # [id number]: Final reports with documentation of one or more dose reduction techniques (e.g., Automated exposure control, adjustment of the mA and/or kV according to patient size, use of iterative reconstruction technique) TECHNICAL DOCUMENTATION: JOB ID: [id number]- All Rights Reserved Reading location - IP/workstation name: [email or web address]
[2018-04-02] MEDS ORDERED: DILTIAZEM HCL INJ 25 MG/5 ML VIAL IV ONE (17:45)
[2018-04-02] MEDS ORDERED: DILTIAZEM HCL/D5W 125 MG/125 ML RTUINJ IV PRN ×2 (17:45→19:19)
--- NOTE | 2018-04-02 18:04 | ER Document Report ---
ED General - General Chief Complaint: Breathing Difficulty Stated Complaint: DIFFICULTY BREATHING Time Seen by Provider: 04/02/18 11:22 TRAVEL OUTSIDE OF THE [place] IN LAST 30 DAYS: No - HPI Patient complains to provider of: Difficulty breathing Notes: Patient coming in for evaluation difficulty breathing. 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 Patient is difficult time and speaking due to the radical neck surgery most of his communication is done by reading lips and using his hands. Patient looks to be mostly complaining about oral secretions otherwise is able to shake his head denying any pain. Going to the electrical mechanic no fevers no chills no nausea no vomiting. - Related Data Allergies/Adverse Reactions: No Known Drug Allergies Allergy (Unknown, Verified 03/01/18 17:01) Past Medical History - Social History Smoking Status: Former Smoker Family History: Reviewed & Not Pertinent Patient has suicidal ideation: No Patient has homicidal ideation: No - Past Medical History Cardiac Medical History: Reports: Hx Atrial Fibrillation, Hx Hypercholesterolemia, Hx Hypertension Denies: Hx Coronary Artery Disease, Hx Heart Attack Pulmonary Medical History: Reports: Hx COPD Denies: Hx Asthma, Hx Bronchitis, Hx Pneumonia Neurological Medical History: Denies: Hx Cerebrovascular Accident, Hx Seizures Renal/ Medical History: Denies: Hx Peritoneal Dialysis GI Medical History: Reports: Hx Gastroesophageal Reflux Disease, Hx Hiatal Hernia Musculoskeletal Medical History: Denies Hx Arthritis Psychiatric Medical History: Denies: Hx Depression Past Surgical History: Reports: Hx Thyroid Surgery - total w/ central neck dissection, Hx Vascular Surgery - left external carotic dissection w/ lysis & anastomosis, Other - Supraglottic mass resection and trach placement at [facility]. - Immunizations Hx Diphtheria, Pertussis, Tetanus Vaccination: Yes Review of Systems - Review of Systems Constitutional: No symptoms reported EENT: No symptoms reported Cardiovascular: No symptoms reported Respiratory: Short of breath Gastrointestinal: No symptoms reported Genitourinary: No symptoms reported Male Genitourinary: No symptoms reported Musculoskeletal: No symptoms reported Skin: No symptoms reported Hematologic/Lymphatic: No symptoms reported Neurological/Psychological: No symptoms reported -: Yes All other systems reviewed and negative Physical Exam - Vital signs Vitals: Temp Pulse Resp BP Pulse Ox 98.1 F 72 30 H 109/92 H 92 04/02/18 11:04 04/02/18 11:04 04/02/18 11:04 04/02/18 11:04 04/02/18 11:04 Interpretation: Tachycardic - General General appearance: Appears well, Alert - HEENT Head: Normocephalic, Atraumatic Eyes: Normal Pupils: PERRL Neck: Other - Copious oral secretions Notes: Trach stoma in place trach shield in place no purulent material no signs of infection around the stoma - Respiratory Respiratory status: No respiratory distress Chest status: Nontender Breath sounds: Normal Chest palpation: Normal - Cardiovascular Rhythm: Regular, Tachycardia Heart sounds: Normal auscultation Murmur: No - Abdominal Inspection: Normal Distension: No distension Bowel sounds: Normal Tenderness: Nontender Organomegaly: No organomegaly - Back Back: Normal, Nontender - Extremities General upper extremity: Normal inspection, Nontender, Normal color, Normal ROM , Normal temperature General lower extremity: Normal inspection, Nontender, Normal color, Normal ROM , Normal temperature, Normal weight bearing. No: Cierra's sign - Neurological Neuro grossly intact: Yes Cognition: Normal Orientation: AAOx4 Marcelo Coma Scale Eye Opening: Spontaneous Marcelo Coma Scale Verbal: Oriented [place] Coma Scale Motor: Obeys Commands Marcelo Coma Scale Total: 15 Speech: Normal Motor strength normal: LUE, RUE, LLE, RLE Sensory: Normal - Psychological Associated symptoms: Normal affect, Normal mood - Skin Skin Temperature: Warm Skin Moisture: Dry Skin Color: Normal Course - Re-evaluation Re-evalutation: 04/02/18 18:48 Patient coming in for evaluation of shortness of breath. Chest x-ray did not show any critical pathology here. Patient initially was hypoxic on room and placed on trach she was given a breathing treatment also was given atropine drops for copious secretions of his oral airway at that time was able to take the stricture away patient had no more episodes of hypoxia. Tachycardia initially looked to be sinus tach patient did miss his dose of metoprolol therefore did give the patient IV dose and or dose heart rate became irregular at that time repeat EKG showing possible a flutter. Discussed with PCP recommend CTA CTA was negative shows reduction in the pneumoperitoneal from the PEG tube placement. Discussed the PCP will admit the patient for atrial flutter. Patient was given Cardizem with improved - Vital Signs Vital signs: Temp Pulse Resp BP Pulse Ox 98.1 F 72 19 113/76 100 04/02/18 11:04 04/02/18 11:04 04/02/18 18:20 04/02/18 18:20 04/02/18 18:20 - Laboratory Result Diagrams: 04/02/18 12:28 04/02/18 14:19 Laboratory results interpreted by me: 04/02/18 04/02/18 04/02/18 12:28 14:19 17:45 RDW 15.9 H Lymphocytes % 12.7 L Chloride 109 H Alkaline Phosphatase 183 H Total Protein 5.9 L Albumin 3.1 L Urine Protein 30 H Urine Ketones 20 H Urine Blood MODERATE H Critical Care Note - Critical Care Note Total time excluding time spent on procedures (mins): 35 Comments: Multiple evaluation for patient with a flutter Discharge - Discharge Clinical Impression: History of glottic cancer, Dehydration, Atrial flutter Condition: Good Disposition: ADMITTED INPATIENT Admitting Provider: [facility] Unit Admitted: [facility]
[2018-04-02 18:06] LABS: APPEARANCE,URINE SLIGHTLY-CLOUDY; BILIRUBIN,URINE NEGATIVE (NEGATIVE); COLOR,URINE YELLOW; GLUCOSE, URINE NEGATIVE (NEGATIVE); KETONES,URINE 20 mg/dL (NEGATIVE); LEUKOCYTE ESTERASE,URINE NEGATIVE (NEGATIVE); NITRITE,URINE NEGATIVE (NEGATIVE); PROTEIN,URINE 30 mg/dL (NEGATIVE); URINE SPECIFIC GRAVITY 1.058; UROBILINOGEN,URINE NEGATIVE mg/dL (<2.0)
[2018-04-02 18:24] LABS: URINE AMPHETAMINES SCREEN NEGATIVE; URINE BARBITURATES SCREEN NEGATIVE; URINE BENZODIAZEPINES SCREEN NEGATIVE; URINE COCAINE SCREEN NEGATIVE; URINE MARIJUANA (THC) SCREEN NEGATIVE; URINE METHADONE SCREEN NEGATIVE; URINE PHENCYCLIDINE SCREEN NEGATIVE
--- NOTE | 2018-04-02 21:06 | PDOC H&P ---
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 He came to the office because he recently had PEG tube placement he was supposed to be started on tube feed, in the office was found to have hypoxemia, the oxygen saturation was in the low 80s because of these findings he was referred to the ER. In the emergency room he was evaluated CTA chest was done, it was negative for PE but it developed atrial flutter/A. fib with rapid irregular response because of this finding hospital admission was advised by the ER physician. Patient was started on Cardizem infusion Past Medical History Cardiac Medical History: Reports: Atrial Fibrillation, Hyperlipidema, Hypertension Pulmonary Medical History: Reports: Chronic Obstructive Pulmonary Disease (COPD) Malignancy Medical History: Reports: Other - Recurrent laryngeal cancer GI Medical History: Reports: Gastroesophageal Reflux Disease, Hiatal Hernia Hematology: Denies: Anemia Past Surgical History Past Surgical History: Reports: Vascular Surgery - left external carotic dissection w/ lysis & anastomosis, Other - Supraglottic mass resection and trach placement at [facility]. Social History Smoking Status: Former Smoker Frequency of Alcohol Use: Rare Hx Recreational Drug Use: No Drugs: None Hx Prescription Drug Abuse: No - Advance Directive Resuscitation Status: Do Not Resuscitate Family History Family History: Reviewed & Not Pertinent Parental Family History Reviewed: Yes Children Family History Reviewed: Yes Sibling(s) Family History Reviewed.: Yes Medication/Allergy Home Medications: Mirtazapine [Remeron 15 mg Tablet] 15 mg PO QHS 09/25/16 Apixaban [Eliquis 2.5 mg Tablet] 2.5 mg PO Q12 02/19/18 Buspirone HCl [Buspar 5 mg Tablet] 5 mg PO Q12 02/19/18 Calcitriol [Rocaltrol 1 mcg/1 mL Oral Soln 15 mL] 0.3 mcg PO Q12 02/19/18 Calcium Carbonate [Os-London 500 mg Tablet (Oyster-Shell)] 500 mg PO TID 02/19/18 Ipratropium/Albuterol Sulfate [Duoneb 3 ml Ampul] 3 ml NEB RTQ6 02/19/18 Levothyroxine Sodium [Synthroid] 112 mcg PO Q6AM 02/19/18 Lisinopril [Prinivil 5 mg Tablet] 5 mg PO DAILY 02/19/18 Metoprolol Tartrate [Lopressor 25 mg Tablet] 25 mg PO Q12 MDD HOLD FOR BP<100 Omeprazole 20 mg PO QHS 02/19/18 Oxycodone HCl [Oxy-Ir 5 mg Tablet] 10 mg PO Q8HP PRN 02/19/18 Scopolamine 1 each TD Q72HP PRN 03/24/18 Allergies/Adverse Reactions: No Known Drug Allergies Allergy (Unknown, Verified 03/01/18 17:01) Review of Systems Constitutional: PRESENT: other - Excessive salivation Eyes: ABSENT: visual disturbances Ears: ABSENT: hearing changes Cardiovascular: PRESENT: chest pain Respiratory: ABSENT: cough, hemoptysis Gastrointestinal: ABSENT: abdominal pain, constipation, diarrhea, hematemesis, hematochezia, nausea, vomiting Genitourinary: ABSENT: dysuria, hematuria Musculoskeletal: ABSENT: joint swelling Integumentary: ABSENT: rash, wounds Neurological: ABSENT: abnormal gait, abnormal speech, confusion, dizziness, focal weakness, syncope Psychiatric: ABSENT: anxiety, depression, homidical ideation, suicidal ideation Endocrine: ABSENT: cold intolerance, heat intolerance, menstrual abnormalities, polydipsia, polyuria Hematologic/Lymphatic: ABSENT: easy bleeding, easy bruising, lymphadenopathy Physical Exam Vital Signs: Temp Pulse Resp BP Pulse Ox 98.1 F 72 16 112/83 100 04/02/18 11:04 04/02/18 11:04 04/02/18 19:01 04/02/18 19:01 04/02/18 19:01 Intake & Output 04/01/18 04/02/18 04/03/18 06:59 06:59 06:59 Intake Total 2 Balance 2 General appearance: PRESENT: mild distress Head exam: PRESENT: atraumatic, normocephalic Eye exam: PRESENT: PERRLA Neck exam: PRESENT: full ROM, tracheostomy Respiratory exam: PRESENT: clear to auscultation perlita Cardiovascular exam: PRESENT: irregular rhythm, RRR, +S1, +S2 GI/Abdominal exam: PRESENT: soft - PEG tube in place Rectal exam: PRESENT: deferred Neurological exam: PRESENT: alert, CN II-XII grossly intact Psychiatric exam: PRESENT: appropriate affect, normal mood Skin exam: PRESENT: dry, intact, warm. ABSENT: cyanosis, rash Results Laboratory Results: 04/02/18 18:33 Troponin I 0.046 Impressions: Chest X-Ray 04/02/18 11:24 IMPRESSION: Decreased abdominal free air. No acute cardiopulmonary findings. Chest/Abdomen CTA 04/02/18 15:11 IMPRESSION: No pulmonary emboli. Zenker's diverticulum containing contrast. Free intraperitoneal air, a finding previously reported. Assessment & Plan - Diagnosis (1) Atrial flutter with rapid ventricular response Is this a current diagnosis for this admission?: Yes Plan: Start Cardizem infusion (2) Recurrent laryngeal squamous cell carcinoma Is this a current diagnosis for this admission?: Yes Plan: Status post PEG tube placement start tube feed (3) COPD (chronic obstructive pulmonary disease) Qualifiers: COPD type: unspecified COPD Qualified Code(s): J44.9 - Chronic obstructive pulmonary disease, unspecified Is this a current diagnosis for this admission?: Yes
[2018-04-02 22:20] LABS: PHOSPHORUS 3.7 mg/dL (2.5-4.5)
[2018-04-02 22:38] LABS: FREE T4 (FREE THYROXINE) 1.48 ng/dL (0.78-2.19)
[2018-04-02 22:52] LABS: THYROID STIMULATING HORMONE 7.16 uIU/mL (0.47-4.68)
--- NOTE | 2018-04-03 00:17 | EKG REPORT ---
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
--- NOTE | 2018-04-03 00:17 | EKG REPORT ---
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
[2018-04-03 01:06] LABS: CREATINE KINASE MB 1.03 ng/mL (<4.55); TROPONIN I 0.043 ng/mL
[2018-04-03 01:53] LABS: INTERNATIONAL RATION (INR) 1.13; PROTHROMBIN TIME 15.1 SEC (11.4-15.4)
[2018-04-03 01:54] LABS: PARTIAL THROMBOPLASTIN TIME 37.3 SEC (23.5-35.8)
[2018-04-03 06:48] LABS: ABSOLUTE EOSINOPHILS # (AUTO) 0.1 10^3/uL (0.0-0.6); ABSOLUTE LYMPHOCYTES (AUTO) 0.6 10^3/uL (0.5-4.7); ABSOLUTE MONOCYTES (AUTO) 0.4 10^3/uL (0.1-1.4); ABSOLUTE NEUT (AUTO) 3.2 10^3/uL (1.7-8.2); LYMPHOCYTES % (AUTO) 14.3 % (13-45); MEAN CORPUSCULAR HEMOGLOBIN 27.8 pg (27.0-33.4); MEAN CORPUSCULAR HGB CONC 33.7 g/dL (32.0-36.0); MEAN CORPUSCULAR VOLUME 83 fl (80-97); MONOCYTES % (AUTO) 9.9 % (3-13); PLATELET COUNT 229 10^3/uL (150-450); RED BLOOD COUNT 4.48 10^6/uL (4.35-5.55); RED CELL DISTRIBUTION WIDTH 15.9 % (11.5-14.0); SEGMENTED NEUTROPHILS % (AUTO) 72.8 % (42-78); TOTAL CELLS COUNTED % (AUTO) 100 %; WHITE BLOOD COUNT 4.4 10^3/uL (4.0-10.5)
[2018-04-03 06:51] LABS: HEMOGLOBIN 12.5 g/dL (13.5-17.0)
[2018-04-03 07:35] LABS: ANION GAP 11 (5-19); BLOOD UREA NITROGEN 13 mg/dL (7-20); CALCIUM 8.8 mg/dL (8.4-10.2); CARBON DIOXIDE 24 mmol/L (22-30); CHLORIDE 108 mmol/L (98-107); GLUCOSE 123 mg/dL (75-110); POTASSIUM 4.1 mmol/L (3.6-5.0); SODIUM 143.2 mmol/L (137-145)
[2018-04-03 07:47] LABS: CREATINE KINASE MB 0.88 ng/mL (<4.55); TROPONIN I 0.029 ng/mL
[2018-04-03] MEDS ORDERED: ENOXAPARIN SODIUM INJ 40 MG/0.4 ML DISP.SYRIN SUBCUT SCH (10:00)
[2018-04-03] MEDS ORDERED: OXYCODONE HCL IR 5 MG TABLET PO PRN (12:11)
[2018-04-03] MEDS ORDERED: (PENDING PHARMACY ID) (Buspirone Hcl [Buspar 5 Mg Tablet] 5 MG) PO SCH (12:15)
[2018-04-03] MEDS: DILTIAZEM HCL 60 MG TABLET PEG SCH (12:46)
[2018-04-03] MEDS ORDERED: LISINOPRIL 5 MG TABLET PO SCH (13:00)
[2018-04-03] MEDS ORDERED: LEVOTHYROXINE SODIUM 0.112 MG TABLET PO SCH (13:00)
[2018-04-03] MEDS ORDERED: METOPROLOL TARTRATE 25 MG TABLET PO SCH (13:00)
[2018-04-03] MEDS ORDERED: LANSOPRAZOLE 15 MG TAB.RAP.DR PO SCH (13:00)
[2018-04-03] MEDS ORDERED: BUSPIRONE HCL 10 MG TABLET PO SCH (13:00)
[2018-04-03] MEDS ORDERED: APIXABAN 2.5 MG TABLET PO SCH (13:00)
[2018-04-03 13:24] LABS: CREATINE KINASE MB 0.81 ng/mL (<4.55); TROPONIN I 0.017 ng/mL
--- NOTE | 2018-04-03 13:45 | PDOC PROGRESS REPORT ---
Subjective Progress Note for:: 04/03/18 Subjective:: Patient seen by the bedside the ventricular rate is better controlled on Cardizem infusion, he was started on tube feed yesterday Reason For Visit: A-FLUTTER WITH RVR,MALIGNANT NEOPLASM OF LARYNX Physical Exam Vital Signs: Temp Pulse Resp BP Pulse Ox 98.7 F 72 18 90/54 L 100 04/03/18 08:35 04/03/18 08:35 04/03/18 08:35 04/03/18 08:35 04/03/18 08:35 Intake & Output 04/02/18 04/03/18 04/04/18 06:59 06:59 06:59 Intake Total 377 123 Balance 377 123 Weight 70.5 kg General appearance: PRESENT: no acute distress Eye exam: PRESENT: PERRLA Respiratory exam: PRESENT: clear to auscultation perlita Cardiovascular exam: PRESENT: +S1, +S2 GI/Abdominal exam: PRESENT: soft Neurological exam: PRESENT: alert Results Laboratory Results: 04/03/18 06:26 04/03/18 06:26 04/03/18 04/03/18 06:26 06:26 WBC 4.4 RBC 4.48 Hgb 12.5 L D Hct 37.0 L MCV 83 MCH 27.8 MCHC 33.7 RDW 15.9 H Plt Count 229 Seg Neutrophils % 72.8 Lymphocytes % 14.3 Monocytes % 9.9 Eosinophils % 2.0 Basophils % 1.0 Absolute Neutrophils 3.2 Absolute Lymphocytes 0.6 Absolute Monocytes 0.4 Absolute Eosinophils 0.1 Absolute Basophils 0.0 Sodium 143.2 Potassium 4.1 Chloride 108 H Carbon Dioxide 24 Anion Gap 11 BUN 13 Creatinine 0.77 Est GFR ( Amer) > 60 Est GFR (Non-Af Amer) > 60 Glucose 123 H Calcium 8.8 04/02/18 04/02/18 04/03/18 18:33 18:33 00:35 Creatine Kinase 85 CK-MB (CK-2) Troponin I 0.046 NT-Pro-B Natriuret Pep 3060 H 04/03/18 04/03/18 04/03/18 00:35 06:26 06:26 Creatine Kinase 76 CK-MB (CK-2) 1.03 0.88 Troponin I 0.043 0.029 NT-Pro-B Natriuret Pep 04/03/18 04/03/18 12:26 12:26 Creatine Kinase 103 CK-MB (CK-2) 0.81 Troponin I 0.017 NT-Pro-B Natriuret Pep Impressions: Chest X-Ray 04/02/18 11:24 IMPRESSION: Decreased abdominal free air. No acute cardiopulmonary findings. Chest/Abdomen CTA 04/02/18 15:11 IMPRESSION: No pulmonary emboli. Zenker's diverticulum containing contrast. Free intraperitoneal air, a finding previously reported. Assessment & Plan - Diagnosis (1) Atrial flutter with rapid ventricular response Is this a current diagnosis for this admission?: Yes Plan: Continue treatment (2) Recurrent laryngeal squamous cell carcinoma Is this a current diagnosis for this admission?: Yes (3) COPD (chronic obstructive pulmonary disease) Qualifiers: COPD type: unspecified COPD Qualified Code(s): J44.9 - Chronic obstructive pulmonary disease, unspecified Is this a current diagnosis for this admission?: Yes
[2018-04-03] MEDS: IPRATROPIUM/ALBUTEROL 0.5-2.5 MG/3 ML AMPUL NEB SCH ×2 (13:48→19:59)
[2018-04-03] MEDS ORDERED: CALCITRIOL 1 MCG/ML ORAL SOLN 15 ML PO SCH (14:00)
[2018-04-03] MEDS ORDERED: CALCIUM CARBONATE 500 MG TABLET PO SCH (14:00)
[2018-04-03] MEDS ORDERED: OXYCODONE HCL IR 5 MG TABLET PEG PRN (14:30)
[2018-04-03] MEDS: CALCIUM CARBONATE 500 MG TABLET PEG SCH (17:31)
[2018-04-03] MEDS: SCOPOLAMINE HYDROBROMIDE 1.5 MG PATCH.TD72 TD PRN (17:31)
[2018-04-03] MEDS: BUSPIRONE HCL 10 MG TABLET PEG SCH (21:21)
[2018-04-03] MEDS: CALCITRIOL 1 MCG/ML ORAL SOLN 15 ML PEG SCH (21:22)
[2018-04-03] MEDS: MIRTAZAPINE 15 MG TABLET PEG SCH (21:22)
[2018-04-03] MEDS: METOPROLOL TARTRATE 25 MG TABLET PEG SCH (21:22)
[2018-04-03] MEDS: APIXABAN 2.5 MG TABLET PEG SCH (21:22)
[2018-04-03] MEDS ORDERED: MIRTAZAPINE 15 MG TABLET PO SCH (22:00)
[2018-04-04] MEDS: IPRATROPIUM/ALBUTEROL 0.5-2.5 MG/3 ML AMPUL NEB SCH ×4 (02:13→19:55)
[2018-04-04] MEDS: LANSOPRAZOLE 15 MG TAB.RAP.DR PEG SCH (05:21)
[2018-04-04] MEDS: LEVOTHYROXINE SODIUM 0.112 MG TABLET PEG SCH (05:21)
[2018-04-04 06:44] LABS: HEMATOCRIT 36.6 % (37.9-51.0); HEMOGLOBIN 12.1 g/dL (13.5-17.0); MEAN CORPUSCULAR HEMOGLOBIN 27.6 pg (27.0-33.4); MEAN CORPUSCULAR HGB CONC 33.2 g/dL (32.0-36.0); MEAN CORPUSCULAR VOLUME 83 fl (80-97); PLATELET COUNT 225 10^3/uL (150-450); WHITE BLOOD COUNT 4.3 10^3/uL (4.0-10.5)
[2018-04-04 07:07] LABS: ANION GAP 11 (5-19); BLOOD UREA NITROGEN 11 mg/dL (7-20); CALCIUM 8.5 mg/dL (8.4-10.2); CARBON DIOXIDE 27 mmol/L (22-30); CHLORIDE 106 mmol/L (98-107); GLUCOSE 108 mg/dL (75-110); POTASSIUM 3.9 mmol/L (3.6-5.0); SODIUM 144.2 mmol/L (137-145)
[2018-04-04 07:27] LABS: ABSOLUTE LYMPHOCYTES# (MANUAL) 1.4 10^3/uL (0.5-4.7); ABSOLUTE MONOCYTES # (MANUAL) 0.3 10^3/uL (0.1-1.4); ABSOLUTE NEUTROPHILS# (MANUAL) 2.5 10^3/uL (1.7-8.2); BASOPHILS % (MANUAL) 0 % (0-2); EOSINOPHILS % (MANUAL) 1 % (0-6); LYMPHOCYTES % (MANUAL) 27 % (13-45); MONOCYTES % (MANUAL) 7 % (3-13); SEGMENTED NEUTROPHILS % (MAN) 59 % (42-78); TOTAL CELLS COUNTED 100
[2018-04-04 07:31] LABS: TOXIC GRANULATION 1+; TOXIC VACUOLATION PRESENT
[2018-04-04 07:32] LABS: ACANTHOCYTES 2+; ANISOCYTOSIS 1+; OVALOCYTES 2+; PLATELET COMMENT ADEQUATE; POIKILOCYTOSIS 3+; TEAR DROP CELLS 1+
[2018-04-04] MEDS: CALCIUM CARBONATE 500 MG TABLET PEG SCH ×3 (09:30→17:18)
[2018-04-04] MEDS: BUSPIRONE HCL 10 MG TABLET PEG SCH ×2 (09:31→21:27)
[2018-04-04] MEDS: DILTIAZEM HCL 60 MG TABLET PEG SCH (09:31)
[2018-04-04] MEDS: CALCITRIOL 1 MCG/ML ORAL SOLN 15 ML PEG SCH ×2 (09:31→21:28)
[2018-04-04] MEDS: APIXABAN 2.5 MG TABLET PEG SCH ×2 (09:31→21:28)
[2018-04-04] MEDS: METOPROLOL TARTRATE 25 MG TABLET PEG SCH ×2 (09:31→21:28)
[2018-04-04] MEDS: LISINOPRIL 5 MG TABLET PEG SCH (09:32)
[2018-04-04] MEDS ORDERED: DILTIAZEM HCL 60 MG TABLET PEG SCH (12:00)
--- NOTE | 2018-04-04 15:36 | PDOC PROGRESS REPORT ---
Subjective Progress Note for:: 04/04/18 Subjective:: Patient abnormal episode of tachycardia presently on tube feed Reason For Visit: A-FLUTTER WITH RVR,MALIGNANT NEOPLASM OF LARYNX Physical Exam Vital Signs: Temp Pulse Resp BP Pulse Ox 98.9 F 70 14 106/60 100 04/04/18 11:18 04/04/18 13:38 04/04/18 13:38 04/04/18 11:18 04/04/18 15:27 Intake & Output 04/03/18 04/04/18 04/05/18 06:59 06:59 06:59 Intake Total 377 1445 Output Total 200 Balance 377 1245 Weight 70.5 kg 71.8 kg General appearance: PRESENT: no acute distress Eye exam: PRESENT: PERRLA Respiratory exam: PRESENT: clear to auscultation perlita Cardiovascular exam: PRESENT: +S1, +S2 GI/Abdominal exam: PRESENT: soft Neurological exam: PRESENT: alert Results Laboratory Results: 04/04/18 05:34 04/04/18 05:34 04/04/18 04/04/18 05:34 05:34 WBC 4.3 RBC 4.40 Hgb 12.1 L Hct 36.6 L MCV 83 MCH 27.6 MCHC 33.2 RDW 16.0 H Plt Count 225 Seg Neutrophils % Not Reportable Lymphocytes % Not Reportable Monocytes % Not Reportable Eosinophils % Not Reportable Basophils % Not Reportable Absolute Neutrophils Not Reportable Absolute Lymphocytes Not Reportable Absolute Monocytes Not Reportable Absolute Eosinophils Not Reportable Absolute Basophils Not Reportable Sodium 144.2 Potassium 3.9 Chloride 106 Carbon Dioxide 27 Anion Gap 11 BUN 11 Creatinine 0.76 Est GFR ( Amer) > 60 Est GFR (Non-Af Amer) > 60 Glucose 108 Calcium 8.5 04/02/18 04/02/18 04/03/18 18:33 18:33 00:35 Creatine Kinase 85 CK-MB (CK-2) Troponin I 0.046 NT-Pro-B Natriuret Pep 3060 H 04/03/18 04/03/18 04/03/18 00:35 06:26 06:26 Creatine Kinase 76 CK-MB (CK-2) 1.03 0.88 Troponin I 0.043 0.029 NT-Pro-B Natriuret Pep 04/03/18 04/03/18 12:26 12:26 Creatine Kinase 103 CK-MB (CK-2) 0.81 Troponin I 0.017 NT-Pro-B Natriuret Pep Impressions: Chest X-Ray 04/02/18 11:24 IMPRESSION: Decreased abdominal free air. No acute cardiopulmonary findings. Chest/Abdomen CTA 04/02/18 15:11 IMPRESSION: No pulmonary emboli. Zenker's diverticulum containing contrast. Free intraperitoneal air, a finding previously reported. Assessment & Plan - Diagnosis (1) Atrial flutter with rapid ventricular response Is this a current diagnosis for this admission?: Yes (2) Recurrent laryngeal squamous cell carcinoma Is this a current diagnosis for this admission?: Yes (3) COPD (chronic obstructive pulmonary disease) Qualifiers: COPD type: unspecified COPD Qualified Code(s): J44.9 - Chronic obstructive pulmonary disease, unspecified Is this a current diagnosis for this admission?: Yes
[2018-04-04] MEDS: MIRTAZAPINE 15 MG TABLET PEG SCH (21:28)
[2018-04-05] MEDS: IPRATROPIUM/ALBUTEROL 0.5-2.5 MG/3 ML AMPUL NEB SCH ×4 (02:07→20:04)
[2018-04-05 05:29] LABS: ABSOLUTE MONOCYTES (AUTO) 0.5 10^3/uL (0.1-1.4); ABSOLUTE NEUT (AUTO) 2.6 10^3/uL (1.7-8.2); BASOPHILS % (AUTO) 0.7 % (0-2); LYMPHOCYTES % (AUTO) 23.9 % (13-45); MEAN CORPUSCULAR HEMOGLOBIN 27.3 pg (27.0-33.4); MEAN CORPUSCULAR HGB CONC 33.2 g/dL (32.0-36.0); MEAN CORPUSCULAR VOLUME 82 fl (80-97); MONOCYTES % (AUTO) 12.7 % (3-13); PLATELET COUNT 222 10^3/uL (150-450); RED BLOOD COUNT 4.38 10^6/uL (4.35-5.55); RED CELL DISTRIBUTION WIDTH 15.5 % (11.5-14.0); SEGMENTED NEUTROPHILS % (AUTO) 61.7 % (42-78); TOTAL CELLS COUNTED % (AUTO) 100 %; WHITE BLOOD COUNT 4.2 10^3/uL (4.0-10.5)
[2018-04-05 05:48] LABS: ANION GAP 9 (5-19); BLOOD UREA NITROGEN 10 mg/dL (7-20); CALCIUM 8.5 mg/dL (8.4-10.2); CARBON DIOXIDE 26 mmol/L (22-30); CHLORIDE 107 mmol/L (98-107); GLUCOSE 112 mg/dL (75-110); POTASSIUM 3.4 mmol/L (3.6-5.0); SODIUM 142.3 mmol/L (137-145)
[2018-04-05] MEDS: LEVOTHYROXINE SODIUM 0.112 MG TABLET PEG SCH (06:12)
[2018-04-05] MEDS: LANSOPRAZOLE 15 MG TAB.RAP.DR PEG SCH (06:12)
[2018-04-05] MEDS: CALCITRIOL 1 MCG/ML ORAL SOLN 15 ML PEG SCH ×2 (12:07→21:50)
[2018-04-05] MEDS: CALCIUM CARBONATE 500 MG TABLET PEG SCH ×3 (12:08→19:02)
[2018-04-05] MEDS: DILTIAZEM HCL 60 MG TABLET PEG SCH (12:09)
[2018-04-05] MEDS: LISINOPRIL 5 MG TABLET PEG SCH (12:09)
[2018-04-05] MEDS: METOPROLOL TARTRATE 25 MG TABLET PEG SCH ×2 (12:09→21:49)
[2018-04-05] MEDS: APIXABAN 2.5 MG TABLET PEG SCH ×2 (12:10→21:50)
[2018-04-05] MEDS: BUSPIRONE HCL 10 MG TABLET PEG SCH ×2 (12:10→21:49)
[2018-04-05] MEDS: OXYCODONE HCL IR 5 MG TABLET PEG PRN (19:14)
--- NOTE | 2018-04-05 21:03 | PDOC DISCHARGE SUMMARY ---
General - Admit/Disc Date/PCP Admission Date/Primary Care Provider: 04/02/18 18:23 HETAL HOPKINS MD Discharge Date: 04/05/18 - Discharge Diagnosis (1) Atrial flutter with rapid ventricular response Is this a current diagnosis for this admission?: Yes (2) Recurrent laryngeal squamous cell carcinoma Is this a current diagnosis for this admission?: Yes (3) COPD (chronic obstructive pulmonary disease) Is this a current diagnosis for this admission?: Yes - Additional Information Resuscitation Status: Do Not Resuscitate Discharge Diet: Tube Feeding (Comments) - Follow recommendation from dietary Discharge Activity: Activity As Tolerated Home Medications: Mirtazapine [Remeron 15 mg Tablet] 15 mg PO QHS 09/25/16 Apixaban [Eliquis 2.5 mg Tablet] 2.5 mg PO Q12 02/19/18 Buspirone HCl [Buspar 5 mg Tablet] 5 mg PO Q12 02/19/18 Calcitriol [Rocaltrol 1 mcg/1 mL Oral Soln 15 mL] 0.3 mcg PO Q12 02/19/18 Calcium Carbonate [Os-London 500 mg Tablet (Oyster-Shell)] 500 mg PO TID 02/19/18 Ipratropium/Albuterol Sulfate [Duoneb 3 ml Ampul] 3 ml NEB RTQ6 02/19/18 Levothyroxine Sodium [Synthroid] 112 mcg PO Q6AM 02/19/18 Lisinopril [Prinivil 5 mg Tablet] 5 mg PO DAILY 02/19/18 Metoprolol Tartrate [Lopressor 25 mg Tablet] 25 mg PO Q12 MDD HOLD FOR BP<100 Omeprazole 20 mg PO QHS 02/19/18 Oxycodone HCl [Oxy-Ir 5 mg Tablet] 10 mg PO Q8HP PRN 02/19/18 Scopolamine 1 each TD Q72HP PRN 03/24/18 Scopolamine Hydrobromide [Transderm-Scop 1.5 mg Patch] 1 each TD Q72HP PRN patch.[id number] 04/05/18 History of Present Illness History of Present Illness: LEONARD CAAL is a 72 year old male, he has 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 He came to the office because he recently had PEG tube placement he was supposed to be started on tube feed, in the office was found to have hypoxemia, the oxygen saturation was in the low 80s because of these findings he was referred to the ER. In the emergency room he was evaluated CTA chest was done, it was negative for PE but it developed atrial flutter/A. fib with rapid irregular response because of this finding hospital admission was advised by the ER physician. Patient was started on Cardizem infusion Hospital Course Hospital Course: Patient admitted for the management of atrial relation with rapid ventricular response he was treated with Cardizem infusion he has inoperable laryngeal cancer. He has a PEG tube, the PEG tube was put to use on this admission, he was started on tube feed Jevity plus Physical Exam Vital Signs: Temp Pulse Resp BP Pulse Ox 99.0 F 70 22 H 132/74 H 100 04/05/18 19:29 04/05/18 19:29 04/05/18 19:29 04/05/18 19:29 04/05/18 19:29 Intake & Output 04/04/18 04/05/18 04/06/18 06:59 06:59 06:59 Intake Total 1445 1492 1495 Output Total 200 400 Balance 1245 1092 1495 Weight 71.8 kg 72.8 kg General appearance: PRESENT: no acute distress Eye exam: PRESENT: PERRLA Respiratory exam: PRESENT: clear to auscultation perlita Cardiovascular exam: PRESENT: +S1, +S2 GI/Abdominal exam: PRESENT: soft, other - There is a PEG tube in place Neurological exam: PRESENT: alert Results Laboratory Results: 04/05/18 05:03 04/05/18 05:03 04/05/18 04/05/18 05:03 05:03 WBC 4.2 RBC 4.38 Hgb 12.0 L Hct 36.0 L MCV 82 MCH 27.3 MCHC 33.2 RDW 15.5 H Plt Count 222 Seg Neutrophils % 61.7 Lymphocytes % 23.9 Monocytes % 12.7 Eosinophils % 1.0 Basophils % 0.7 Absolute Neutrophils 2.6 Absolute Lymphocytes 1.0 Absolute Monocytes 0.5 Absolute Eosinophils 0.0 Absolute Basophils 0.0 Sodium 142.3 Potassium 3.4 L Chloride 107 Carbon Dioxide 26 Anion Gap 9 BUN 10 Creatinine 0.65 Est GFR ( Amer) > 60 Est GFR (Non-Af Amer) > 60 Glucose 112 H Calcium 8.5 04/02/18 04/02/18 04/03/18 18:33 18:33 00:35 Creatine Kinase 85 CK-MB (CK-2) Troponin I 0.046 NT-Pro-B Natriuret Pep 3060 H 04/03/18 04/03/18 04/03/18 00:35 06:26 06:26 Creatine Kinase 76 CK-MB (CK-2) 1.03 0.88 Troponin I 0.043 0.029 NT-Pro-B Natriuret Pep 04/03/18 04/03/18 12:26 12:26 Creatine Kinase 103 CK-MB (CK-2) 0.81 Troponin I 0.017 NT-Pro-B Natriuret Pep Impressions: Chest X-Ray 04/02/18 11:24 IMPRESSION: Decreased abdominal free air. No acute cardiopulmonary findings. Chest/Abdomen CTA 04/02/18 15:11 IMPRESSION: No pulmonary emboli. Zenker's diverticulum containing contrast. Free intraperitoneal air, a finding previously reported. Qualifiers - * PATIENT BEING DISCHARGED WITH ANY OF THE FOLLOWING DIAGNOSIS: No
[2018-04-05] MEDS: MIRTAZAPINE 15 MG TABLET PEG SCH (21:49)
[2018-04-06] MEDS: OXYCODONE HCL IR 5 MG TABLET PEG PRN ×2 (01:50→12:55)
[2018-04-06] MEDS: IPRATROPIUM/ALBUTEROL 0.5-2.5 MG/3 ML AMPUL NEB SCH ×4 (02:06→20:23)
[2018-04-06] MEDS: LANSOPRAZOLE 15 MG TAB.RAP.DR PEG SCH (05:53)
[2018-04-06] MEDS: LEVOTHYROXINE SODIUM 0.112 MG TABLET PEG SCH (05:53)
[2018-04-06] MEDS: BUSPIRONE HCL 10 MG TABLET PEG SCH ×2 (09:28→21:49)
[2018-04-06] MEDS: DILTIAZEM HCL 60 MG TABLET PEG SCH (09:29)
[2018-04-06] MEDS: LISINOPRIL 5 MG TABLET PEG SCH (09:30)
[2018-04-06] MEDS: METOPROLOL TARTRATE 25 MG TABLET PEG SCH ×2 (09:30→21:49)
[2018-04-06] MEDS: CALCIUM CARBONATE 500 MG TABLET PEG SCH ×3 (09:30→17:45)
[2018-04-06] MEDS: CALCITRIOL 1 MCG/ML ORAL SOLN 15 ML PEG SCH ×2 (09:30→21:50)
[2018-04-06] MEDS: APIXABAN 2.5 MG TABLET PEG SCH ×2 (09:33→21:49)
[2018-04-06] MEDS: SCOPOLAMINE HYDROBROMIDE 1.5 MG PATCH.TD72 TD PRN (12:56)
[2018-04-06] MEDS: MIRTAZAPINE 15 MG TABLET PEG SCH (21:48)
[2018-04-07] MEDS: IPRATROPIUM/ALBUTEROL 0.5-2.5 MG/3 ML AMPUL NEB SCH ×3 (02:21→13:54)
[2018-04-07] MEDS: LEVOTHYROXINE SODIUM 0.112 MG TABLET PEG SCH (05:34)
[2018-04-07] MEDS: LANSOPRAZOLE 15 MG TAB.RAP.DR PEG SCH (05:34)
[2018-04-07] MEDS: APIXABAN 2.5 MG TABLET PEG SCH (10:52)
[2018-04-07] MEDS: BUSPIRONE HCL 10 MG TABLET PEG SCH (10:52)
[2018-04-07] MEDS: LISINOPRIL 5 MG TABLET PEG SCH (10:52)
[2018-04-07] MEDS: CALCIUM CARBONATE 500 MG TABLET PEG SCH (10:53)
[2018-04-07] MEDS: DILTIAZEM HCL 60 MG TABLET PEG SCH (10:53)
[2018-04-07] MEDS: METOPROLOL TARTRATE 25 MG TABLET PEG SCH (10:53)
[2018-04-07] MEDS: CALCITRIOL 1 MCG/ML ORAL SOLN 15 ML PEG SCH (10:59)
[2018-04-07 17:59] VITALS: BP 110/59
== END 2018-04-07 17:00 | disposition home or self-care (01) | DRG 310 ==
LOC: ER 10:57 → EH 18:23 → 3W 20:40
PROVIDERS: ADMIT Internal Medicine; ATTEND Internal Medicine
PROC: 3E0F73Z Introduction of Anti-inflammatory into Respiratory Tract, Via Natural or Artificial Opening (ICD-10-PCS; principal; 2018-04-03)
DX: I48.92 Unspecified atrial flutter (principal); C32.9 Malignant neoplasm of larynx, unspecified; Z66 Do not resuscitate; J44.9 Chronic obstructive pulmonary disease, unspecified; E78.00 Pure hypercholesterolemia, unspecified; I10 Essential (primary) hypertension; K21.9 Gastro-esophageal reflux disease without esophagitis; E86.0 Dehydration; Z87.891 Personal history of nicotine dependence; Z79.899 Other long term (current) drug therapy; Z92.3 Personal history of irradiation; Z90.02 Acquired absence of larynx; Z93.1 Gastrostomy status; Z93.0 Tracheostomy status
CPT/HCPCS: 36415; 71045; 71275; 80048; 80053; 80307; 81001; 82550; 82553; 82803; 83735; 83880; 84100; 84439; 84443; 84484; 85025; 85610; 85730; 93005; 93010; 94640; 96361; 96374; 96375; 96376; 99291; J1650; J3490; J7030; J7620

== ENCOUNTER 2018-04-21 11:38 | Inpatient (IN) | payer MEDICARE, MEDICAID ==
[2018-04-21] MEDS ORDERED: FENTANYL CITRATE INJ/PF 100 MCG/2 ML AMPUL IV ONE (12:00)
[2018-04-21] MEDS ORDERED: ONDANSETRON HCL INJ/PF 4 MG/2 ML SDV IV ONE (12:00)
[2018-04-21] MEDS ORDERED: RINGERS SOLUTION,LACTATED 1,000 ML IV ONE (12:01)
--- NOTE | 2018-04-21 12:02 | ER Document Report ---
ED Medical Screen (RME) - General Chief Complaint: Constipation Stated Complaint: BOWEL ISSUE Time Seen by Provider: 04/21/18 11:57 Notes: 73 years old male with throat cancer terminal stage, sent over here by the primary care physician to be admitted and placed in a half-way. He has not been taking his pain medications for the l last 24 hours because he ran out of it. TRAVEL OUTSIDE OF THE [place] IN LAST 30 DAYS: No - Related Data Allergies/Adverse Reactions: No Known Drug Allergies Allergy (Unknown, Verified 04/21/18 11:39) Past Medical History - Social History Frequency of alcohol use: None Drug Abuse: None - Past Medical History Cardiac Medical History: Reports: Hx Atrial Fibrillation, Hx Hypercholesterolemia, Hx Hypertension Denies: Hx Coronary Artery Disease, Hx Heart Attack Pulmonary Medical History: Reports: Hx COPD Denies: Hx Asthma, Hx Bronchitis, Hx Pneumonia Neurological Medical History: Denies: Hx Cerebrovascular Accident, Hx Seizures Renal/ Medical History: Denies: Hx Peritoneal Dialysis GI Medical History: Reports: Hx Gastroesophageal Reflux Disease, Hx Hiatal Hernia Musculoskeltal Medical History: Denies Hx Arthritis Psychiatric Medical History: Denies: Hx Depression Past Surgical History: Reports: Hx Thyroid Surgery - total w/ central neck dissection, Hx Vascular Surgery - left external carotic dissection w/ lysis & anastomosis, Other - [facility]lott[facility] - Immunizations Hx Diphtheria, Pertussis, Tetanus Vaccination: Yes Physical Exam - Vital signs Vitals: Temp Pulse Resp BP Pulse Ox 97.6 F 70 32 H 115/79 100 04/21/18 11:49 04/21/18 11:49 04/21/18 11:49 04/21/18 11:49 04/21/18 11:49 Course - Vital Signs Vital signs: Temp Pulse Resp BP Pulse Ox 97.6 F 70 32 H 115/79 100 04/21/18 11:49 04/21/18 11:49 04/21/18 11:49 04/21/18 11:49 04/21/18 11:49 Doctor's Discharge - Discharge Referrals: HETAL HOPKINS MD [Primary Care Provider] - Follow up as needed
[2018-04-21 13:30] LABS: ABSOLUTE BASOPHILS # (AUTO) 0.1 10^3/uL (0.0-0.2); ABSOLUTE LYMPHOCYTES (AUTO) 0.9 10^3/uL (0.5-4.7); ABSOLUTE MONOCYTES (AUTO) 0.5 10^3/uL (0.1-1.4); ABSOLUTE NEUT (AUTO) 5.1 10^3/uL (1.7-8.2); BASOPHILS % (AUTO) 0.9 % (0-2); EOSINOPHILS % (AUTO) 0.5 % (0-6); HEMATOCRIT 40.9 % (37.9-51.0); HEMOGLOBIN 13.7 g/dL (13.5-17.0); LYMPHOCYTES % (AUTO) 14.3 % (13-45); MEAN CORPUSCULAR HEMOGLOBIN 27.6 pg (27.0-33.4); MEAN CORPUSCULAR HGB CONC 33.6 g/dL (32.0-36.0); MEAN CORPUSCULAR VOLUME 82 fl (80-97); MONOCYTES % (AUTO) 7.3 % (3-13); PLATELET COUNT 458 10^3/uL (150-450); RED BLOOD COUNT 4.97 10^6/uL (4.35-5.55); RED CELL DISTRIBUTION WIDTH 15.9 % (11.5-14.0); TOTAL CELLS COUNTED % (AUTO) 100 %; WHITE BLOOD COUNT 6.7 10^3/uL (4.0-10.5)
[2018-04-21 13:52] LABS: ALANINE AMINOTRANSFERASE 86 U/L (21-72); ALBUMIN 3.9 g/dL (3.5-5.0); ALKALINE PHOSPHATASE 249 U/L (38-126); ANION GAP 12 (5-19); ASPARTATE AMINO TRANSFERASE 70 U/L (17-59); BILIRUBIN,DIRECT 0.3 mg/dL (0.0-0.4); BILIRUBIN,TOTAL 0.5 mg/dL (0.2-1.3); BLOOD UREA NITROGEN 17 mg/dL (7-20); CALCIUM 9.9 mg/dL (8.4-10.2); CARBON DIOXIDE 32 mmol/L (22-30); CHLORIDE 97 mmol/L (98-107); GLUCOSE 119 mg/dL (75-110); POTASSIUM 5.6 mmol/L (3.6-5.0); SODIUM 140.5 mmol/L (137-145); TOTAL PROTEIN 7.6 g/dL (6.3-8.2)
[2018-04-21] MEDS ORDERED: (PENDING PHARMACY ID) (Naloxone Hcl [Narcan] 4 MG) NS PRN (18:41)
[2018-04-21] MEDS ORDERED: DOCUSATE SODIUM 100 MG/10 ML UDC PO PRN (18:41)
[2018-04-21] MEDS ORDERED: SCOPOLAMINE HYDROBROMIDE 1.5 MG PATCH.TD72 TD PRN (18:41)
[2018-04-21] MEDS ORDERED: (PENDING PHARMACY ID) (Acetaminophen [Tylenol Extra Strength 500 Mg Tablet] 500 MG) PO PRN (18:41)
[2018-04-21] MEDS ORDERED: BISACODYL 10 MG SUPP.RECT PR PRN (18:41)
[2018-04-21] MEDS ORDERED: OXYCODONE HCL IR 5 MG TABLET PO PRN (18:41)
[2018-04-21] MEDS ORDERED: (PENDING PHARMACY ID) (Buspirone Hcl [Buspar 5 Mg Tablet] 5 MG) PO SCH (18:45)
[2018-04-21] MEDS ORDERED: (PENDING PHARMACY ID) (Diclofenac Sodium [Voltaren] 4 GM) TP SCH ×2 (18:45→19:30)
--- NOTE | 2018-04-21 19:18 | PDOC H&P ---
History of Present Illness Admission Date/PCP: 04/21/18 15:04 HETAL HOPKINS MD History of Present Illness: LEONARD CAAL is a 72 year old male, He has stage IV laryngeal cancer, status post radical laryngectomy, radiation therapy, the present disease is inoperable essentially he has terminal cancer. He was recently admitted and discharged from this hospital on April 05, 2018 about 2 weeks ago. The plan is for patient to be placed in a group home, he has a feeding tube in place, family is not able to care for this patient anymore Past Medical History Cardiac Medical History: Reports: Atrial Fibrillation, Hyperlipidema, Hypertension Pulmonary Medical History: Reports: Chronic Obstructive Pulmonary Disease (COPD) Malignancy Medical History: Reports: Other - Stage IV laryngeal cancer GI Medical History: Reports: Gastroesophageal Reflux Disease, Hiatal Hernia Past Surgical History Past Surgical History: Reports: Vascular Surgery - left external carotic dissection w/ lysis & anastomosis, Other - Supraglottic mass resection and trach placement at [facility]. Social History Smoking Status: Former Smoker Frequency of Alcohol Use: Rare Hx Recreational Drug Use: No Drugs: None Hx Prescription Drug Abuse: No Family History Family History: Reviewed & Not Pertinent Parental Family History Reviewed: Yes Children Family History Reviewed: Yes Sibling(s) Family History Reviewed.: Yes Medication/Allergy Home Medications: Acetaminophen [Tylenol Extra Strength 500 mg Tablet] 500 mg PO Q6HP PRN Apixaban [Eliquis 2.5 mg Tablet] 2.5 mg PO Q12 04/21/18 Aspirin [Ecotrin 81 mg EC Tablet] 81 mg PO DAILY 04/21/18 Atorvastatin Calcium [Lipitor 80 mg Tablet] 80 mg PO QPM 04/21/18 Bisacodyl [Dulcolax 10 mg Supp.rect] 10 mg AL DAILYP PRN 04/21/18 Buspirone HCl [Buspar 5 mg Tablet] 5 mg PO BID 04/21/18 Calcitriol [Rocaltrol 1 Mcg/ml Oral Soln] 0.3 mcg PO BID 04/21/18 Calcium Carbonate [Calcium] 500 mg PO TID 04/21/18 Diclofenac Sodium [Voltaren] 4 gm TP BID 04/21/18 Ipratropium/Albuterol Sulfate [Duoneb 3 ml Ampul] 3 ml NEB RTQID 04/21/18 Levothyroxine Sodium [Synthroid 0.112 mg Tablet] 0.112 mg PO Q6AM 04/21/18 Lisinopril [Prinivil 5 mg Tablet] 5 mg PO DAILY 04/21/18 Metoprolol Tartrate [Lopressor 25 mg Tablet] 25 mg PO Q12 04/21/18 Mirtazapine [Remeron 15 mg Tablet] 15 mg PO QHS 04/21/18 Naloxone HCl [Narcan] 4 mg NS ASDIR PRN 04/21/18 Oxycodone HCl [Oxy-Ir 5 mg Tablet] 10 mg PO Q8HP PRN 04/21/18 RX: Docusate Sodium 10 ml PO BIDP PRN 04/21/18 RX: Omeprazole 20 mg PO QHS 04/21/18 RX: Scopolamine 1 each TD Q72HP PRN 04/21/18 Sennosides [Senna] 17.2 mg PO QHS 04/21/18 Allergies/Adverse Reactions: No Known Drug Allergies Allergy (Unknown, Verified 04/21/18 11:39) Review of Systems Constitutional: PRESENT: fatigue Respiratory: PRESENT: sputum Gastrointestinal: PRESENT: nausea Physical Exam Vital Signs: Temp Pulse Resp BP Pulse Ox 98.2 F 70 18 152/66 H 100 04/21/18 17:53 04/21/18 17:53 04/21/18 17:53 04/21/18 17:53 04/21/18 17:53 Intake & Output 04/20/18 04/21/18 04/22/18 06:59 06:59 06:59 Weight 68.9 kg General appearance: PRESENT: mild distress Eye exam: PRESENT: PERRLA Neck exam: PRESENT: tracheostomy Respiratory exam: PRESENT: rhonchi Cardiovascular exam: PRESENT: +S1, +S2 GI/Abdominal exam: PRESENT: soft Neurological exam: PRESENT: alert Assessment & Plan - Diagnosis (1) Malignant neoplasm of larynx Is this a current diagnosis for this admission?: Yes Plan: He has stage IV laryngeal cancer, inoperable, no more indication for radiation therapy, chemotherapy or surgery. Patient refuses to be hospice, hospice care was recommended for this patient, palliative care will be consulted, patient will be placed in a group home.
[2018-04-21] MEDS ORDERED: DOCUSATE SODIUM 100 MG/10 ML UDC PEG PRN (19:30)
[2018-04-21] MEDS ORDERED: ATORVASTATIN CALCIUM 80 MG TABLET PO SCH (19:30)
[2018-04-21] MEDS ORDERED: CALCITRIOL 1 MCG/ML ORAL SOLN 15 ML PO SCH (19:30)
[2018-04-21] MEDS ORDERED: APIXABAN 2.5 MG TABLET PO SCH (19:30)
[2018-04-21] MEDS: LISINOPRIL 5 MG TABLET PEG SCH (20:18)
[2018-04-21] MEDS: METOPROLOL TARTRATE 25 MG TABLET PEG SCH ×2 (20:19→21:26)
[2018-04-21] MEDS: IPRATROPIUM/ALBUTEROL 0.5-2.5 MG/3 ML AMPUL NEB SCH (21:00)
[2018-04-21] MEDS: BUSPIRONE HCL 10 MG TABLET PEG SCH (21:26)
[2018-04-21] MEDS: SENNOSIDES/DOCUSATE 8.6-50 MG 1 EACH TABLET PEG SCH (21:26)
[2018-04-21] MEDS: LANSOPRAZOLE 15 MG TAB.RAP.DR PEG SCH (21:26)
[2018-04-21] MEDS: CALCIUM CARBONATE 500 MG TABLET PEG SCH (21:26)
[2018-04-21] MEDS: APIXABAN 2.5 MG TABLET PEG SCH (21:26)
[2018-04-21] MEDS: MIRTAZAPINE 15 MG TABLET PEG SCH (21:27)
[2018-04-21] MEDS ORDERED: (PENDING PHARMACY ID) (Sennosides [Senna] 17.2 MG) PO SCH (22:00)
[2018-04-22] MEDS: CALCIUM CARBONATE 500 MG TABLET PEG SCH ×3 (05:44→23:06)
[2018-04-22] MEDS: LEVOTHYROXINE SODIUM 0.112 MG TABLET PEG SCH (05:44)
[2018-04-22] MEDS: IPRATROPIUM/ALBUTEROL 0.5-2.5 MG/3 ML AMPUL NEB SCH ×4 (08:50→20:16)
[2018-04-22] MEDS: CALCITRIOL 1 MCG/ML ORAL SOLN 15 ML PEG SCH ×2 (10:21→17:40)
[2018-04-22] MEDS: METOPROLOL TARTRATE 25 MG TABLET PEG SCH ×2 (10:21→23:05)
[2018-04-22] MEDS: OXYCODONE HCL IR 5 MG TABLET PEG PRN (10:21)
[2018-04-22] MEDS: LISINOPRIL 5 MG TABLET PEG SCH (10:22)
[2018-04-22] MEDS: APIXABAN 2.5 MG TABLET PEG SCH ×2 (10:22→23:06)
[2018-04-22] MEDS: BUSPIRONE HCL 10 MG TABLET PEG SCH ×2 (10:22→23:05)
[2018-04-22] MEDS: ATORVASTATIN CALCIUM 80 MG TABLET PEG SCH (17:38)
[2018-04-22] MEDS: LANSOPRAZOLE 15 MG TAB.RAP.DR PEG SCH (23:06)
[2018-04-22] MEDS: SENNOSIDES/DOCUSATE 8.6-50 MG 1 EACH TABLET PEG SCH (23:07)
[2018-04-22] MEDS: MIRTAZAPINE 15 MG TABLET PEG SCH (23:07)
[2018-04-23] MEDS: CALCIUM CARBONATE 500 MG TABLET PEG SCH ×3 (06:00→22:27)
[2018-04-23] MEDS: LEVOTHYROXINE SODIUM 0.112 MG TABLET PEG SCH (06:00)
[2018-04-23] MEDS: IPRATROPIUM/ALBUTEROL 0.5-2.5 MG/3 ML AMPUL NEB SCH ×4 (08:45→20:35)
[2018-04-23] MEDS: CALCITRIOL 1 MCG/ML ORAL SOLN 15 ML PEG SCH ×2 (09:30→17:56)
[2018-04-23] MEDS: BUSPIRONE HCL 10 MG TABLET PEG SCH ×2 (09:31→22:27)
[2018-04-23] MEDS: METOPROLOL TARTRATE 25 MG TABLET PEG SCH ×2 (09:33→22:27)
[2018-04-23] MEDS: LISINOPRIL 5 MG TABLET PEG SCH (09:34)
[2018-04-23] MEDS: APIXABAN 2.5 MG TABLET PEG SCH ×2 (09:34→22:26)
[2018-04-23] MEDS: OXYCODONE HCL IR 5 MG TABLET PEG PRN (13:02)
[2018-04-23] MEDS: ATORVASTATIN CALCIUM 80 MG TABLET PEG SCH (17:56)
[2018-04-23] MEDS: SENNOSIDES/DOCUSATE 8.6-50 MG 1 EACH TABLET PEG SCH (22:26)
[2018-04-23] MEDS: LANSOPRAZOLE 15 MG TAB.RAP.DR PEG SCH (22:27)
[2018-04-23] MEDS: MIRTAZAPINE 15 MG TABLET PEG SCH (22:27)
[2018-04-24] MEDS: LEVOTHYROXINE SODIUM 0.112 MG TABLET PEG SCH (05:27)
[2018-04-24] MEDS: CALCIUM CARBONATE 500 MG TABLET PEG SCH ×3 (05:27→21:21)
[2018-04-24] MEDS: IPRATROPIUM/ALBUTEROL 0.5-2.5 MG/3 ML AMPUL NEB SCH ×4 (09:01→19:35)
[2018-04-24] MEDS: METOPROLOL TARTRATE 25 MG TABLET PEG SCH ×2 (10:03→21:22)
[2018-04-24] MEDS: LISINOPRIL 5 MG TABLET PEG SCH (10:03)
[2018-04-24] MEDS: APIXABAN 2.5 MG TABLET PEG SCH ×2 (10:03→21:20)
[2018-04-24] MEDS: BUSPIRONE HCL 10 MG TABLET PEG SCH ×2 (10:04→21:19)
[2018-04-24] MEDS: CALCITRIOL 1 MCG/ML ORAL SOLN 15 ML PEG SCH ×2 (10:04→17:01)
--- NOTE | 2018-04-24 12:28 | PDOC PROGRESS REPORT ---
Subjective Progress Note for:: 04/24/18 Subjective:: Patient is currently doing well Patient is waiting to to go to the rehab with a stage IV laryngeal cancer Currently on a tube feeding Reason For Visit: METASTATIC LARYNGEAL CANCER,HYPOXEMIA Physical Exam Vital Signs: Temp Pulse Resp BP Pulse Ox 99.1 F 72 21 H 107/51 L 99 04/24/18 11:53 04/24/18 11:53 04/24/18 11:53 04/24/18 11:53 04/24/18 11:53 Intake & Output 04/23/18 04/24/18 04/25/18 06:59 06:59 06:59 Intake Total 1799 1269 Output Total 0 450 Balance 1799 819 Weight 69.9 kg 67.4 kg General appearance: PRESENT: no acute distress, well-developed, well-nourished Head exam: PRESENT: atraumatic, normocephalic Eye exam: PRESENT: conjunctiva pink, EOMI, PERRLA. ABSENT: scleral icterus Ear exam: PRESENT: normal external ear exam Mouth exam: PRESENT: moist, tongue midline Neck exam: PRESENT: full ROM. ABSENT: carotid bruit, JVD, lymphadenopathy, thyromegaly Respiratory exam: PRESENT: clear to auscultation perlita Cardiovascular exam: PRESENT: RRR. ABSENT: diastolic murmur, rubs, systolic murmur Pulses: PRESENT: normal dorsalis pedis pul, +2 pedal pulses bilateral Vascular exam: PRESENT: normal capillary refill GI/Abdominal exam: PRESENT: normal bowel sounds, soft. ABSENT: distended, guarding, mass, organolmegaly, rebound, tenderness Rectal exam: PRESENT: deferred Neurological exam: PRESENT: alert, awake, oriented to person, oriented to place , oriented to time. ABSENT: motor sensory deficit Psychiatric exam: PRESENT: appropriate affect, normal mood. ABSENT: homicidal ideation, suicidal ideation Skin exam: PRESENT: dry, intact, warm. ABSENT: cyanosis, rash Assessment & Plan - Diagnosis (1) Malignant neoplasm of larynx Is this a current diagnosis for this admission?: Yes (2) COPD (chronic obstructive pulmonary disease) Qualifiers: COPD type: chronic bronchitis Chronic bronchitis type: simple Qualified Code(s): J41.0 - Simple chronic bronchitis Is this a current diagnosis for this admission?: Yes (3) Dysphagia Qualifiers: Dysphagia type: unspecified Qualified Code(s): R13.10 - Dysphagia, unspecified Is this a current diagnosis for this admission?: Yes - Time Time Spent with patient: 15-24 minutes Medications reviewed and adjusted accordingly: Yes Anticipated discharge: SNF Within: Other - Plan Summary Plan Summary: Current medications
[2018-04-24] MEDS: OXYCODONE HCL IR 5 MG TABLET PEG PRN (17:01)
[2018-04-24] MEDS: ATORVASTATIN CALCIUM 80 MG TABLET PEG SCH (17:01)
[2018-04-24] MEDS: ACETAMINOPHEN 325 MG TABLET PEG PRN (20:38)
[2018-04-24] MEDS ORDERED: NORMAL SALINE 1000 ML 250 ML IV ONE (21:00)
[2018-04-24] MEDS: LANSOPRAZOLE 15 MG TAB.RAP.DR PEG SCH (21:24)
[2018-04-24] MEDS: MIRTAZAPINE 15 MG TABLET PEG SCH (21:25)
[2018-04-24] MEDS: SENNOSIDES/DOCUSATE 8.6-50 MG 1 EACH TABLET PEG SCH (21:25)
[2018-04-25] MEDS: CALCIUM CARBONATE 500 MG TABLET PEG SCH ×3 (06:22→21:15)
[2018-04-25] MEDS: OXYCODONE HCL IR 5 MG TABLET PEG PRN ×2 (06:30→18:27)
[2018-04-25] MEDS: LEVOTHYROXINE SODIUM 0.112 MG TABLET PEG SCH (06:30)
[2018-04-25] MEDS: NORMAL SALINE 1000 ML 1,000 ML IV PRN ×2 (06:31→21:36)
[2018-04-25] MEDS: IPRATROPIUM/ALBUTEROL 0.5-2.5 MG/3 ML AMPUL NEB SCH ×4 (08:38→20:29)
--- NOTE | 2018-04-25 10:44 | EKG REPORT ---
SEVERITY:- OTHERWISE NORMAL ECG - SINUS RHYTHM LEFT AXIS DEVIATION : Confirmed by: Agustín Mejía 25-Apr-2018 10:43:21
[2018-04-25] MEDS: CALCITRIOL 1 MCG/ML ORAL SOLN 15 ML PEG SCH ×2 (11:10→18:27)
[2018-04-25] MEDS: METOPROLOL TARTRATE 25 MG TABLET PEG SCH ×3 (11:10→21:14)
[2018-04-25] MEDS: APIXABAN 2.5 MG TABLET PEG SCH ×2 (11:11→21:16)
[2018-04-25] MEDS: BUSPIRONE HCL 10 MG TABLET PEG SCH ×2 (11:11→21:16)
--- NOTE | 2018-04-25 11:33 | PDOC PROGRESS REPORT ---
Subjective Progress Note for:: 04/25/18 Subjective:: Patient is currently doing fair Denied any chest pain to the shortness of the breath Patient have a history of the atrial fibrillation in a patient with heart rates close to up to 160 Patient is currently on a beta-maritza twice a day Patient was started on IV fluid because of the low blood pressure and now currently doing better Reason For Visit: METASTATIC LARYNGEAL CANCER,HYPOXEMIA Physical Exam Vital Signs: Temp Pulse Resp BP Pulse Ox 97.9 F 65 16 136/73 H 96 04/25/18 07:26 04/25/18 08:39 04/25/18 08:39 04/25/18 07:26 04/25/18 08:39 Intake & Output 04/24/18 04/25/18 04/26/18 06:59 06:59 06:59 Intake Total 1269 1767 Output Total 450 800 Balance 819 967 Weight 67.4 kg 68 kg General appearance: PRESENT: no acute distress, thin Head exam: PRESENT: atraumatic, normocephalic Eye exam: PRESENT: conjunctiva pink, EOMI, PERRLA. ABSENT: scleral icterus Ear exam: PRESENT: normal external ear exam Mouth exam: PRESENT: moist, tongue midline Neck exam: PRESENT: full ROM. ABSENT: carotid bruit, JVD, lymphadenopathy, thyromegaly Respiratory exam: PRESENT: clear to auscultation perlita Cardiovascular exam: PRESENT: RRR. ABSENT: diastolic murmur, rubs, systolic murmur Pulses: PRESENT: normal dorsalis pedis pul, +2 pedal pulses bilateral Vascular exam: PRESENT: normal capillary refill GI/Abdominal exam: PRESENT: normal bowel sounds, soft. ABSENT: distended, guarding, mass, organolmegaly, rebound, tenderness Rectal exam: PRESENT: deferred Neurological exam: PRESENT: alert, awake, oriented to person, oriented to place , oriented to time, oriented to situation, CN II-XII grossly intact. ABSENT: motor sensory deficit Psychiatric exam: PRESENT: appropriate affect, normal mood. ABSENT: homicidal ideation, suicidal ideation Skin exam: PRESENT: dry, intact, warm. ABSENT: cyanosis, rash Assessment & Plan - Diagnosis (1) Malignant neoplasm of larynx Is this a current diagnosis for this admission?: Yes (2) COPD (chronic obstructive pulmonary disease) Qualifiers: COPD type: chronic bronchitis Chronic bronchitis type: simple Qualified Code(s): J41.0 - Simple chronic bronchitis Is this a current diagnosis for this admission?: Yes (3) Dysphagia Qualifiers: Dysphagia type: unspecified Qualified Code(s): R13.10 - Dysphagia, unspecified Is this a current diagnosis for this admission?: Yes (4) Atrial flutter with rapid ventricular response Is this a current diagnosis for this admission?: Yes Plan: Increased metoprolol 25 mg to 1 1/2 tablet twice a day - Time Time Spent with patient: 15-24 minutes Medications reviewed and adjusted accordingly: Yes Anticipated discharge: SNF - Inpatient Certification Based on my medical assessment, after consideration of the patient's comorbidities, presenting symptoms, or acuity I expect that the services needed warrant INPATIENT care.: Yes I certify that my determination is in accordance with my understanding of Medicare's requirements for reasonable and necessary INPATIENT services [42 CFR 412.3e].: Yes Medical Necessity: Need Close Monitoring Due to Risk of Patient Decompensation Post Hospital Care: D/C Roof Technician Documentation - Plan Summary Plan Summary: Continues to current medications
[2018-04-25] MEDS: ATORVASTATIN CALCIUM 80 MG TABLET PEG SCH (18:27)
[2018-04-25] MEDS: MIRTAZAPINE 15 MG TABLET PEG SCH (21:15)
[2018-04-25] MEDS: LANSOPRAZOLE 15 MG TAB.RAP.DR PEG SCH (21:15)
[2018-04-25] MEDS: SENNOSIDES/DOCUSATE 8.6-50 MG 1 EACH TABLET PEG SCH (21:16)
[2018-04-26] MEDS: OXYCODONE HCL IR 5 MG TABLET PEG PRN ×3 (03:01→21:11)
[2018-04-26] MEDS: CALCIUM CARBONATE 500 MG TABLET PEG SCH ×3 (06:54→21:12)
[2018-04-26] MEDS: LEVOTHYROXINE SODIUM 0.112 MG TABLET PEG SCH (06:54)
[2018-04-26] MEDS: IPRATROPIUM/ALBUTEROL 0.5-2.5 MG/3 ML AMPUL NEB SCH ×4 (08:49→20:18)
--- NOTE | 2018-04-26 10:44 | Physician Advisory Note ---
Physician Advisor ProgressNote .: [facility], I have reviewed the medical record for this patient. Physician Advisor Statement: Attending, please document today, if you agree: 1. any ongoing/new clinical issues at this point that require more than correction care, including continuing to document the acute dx.s of this weekend (hypotension due to ___, Afib w/RVR) 2. "chronic hypoxemic respiratory failure due to , pt uses __L O2 at baseline" 3. "moderate malnutrition, see safety clothing and equipment developer note for details" 4. "chronic opioid dependence due to CA" Status review: Medicare pt w/recent adm, sent back in from office for SNF placement per ED & H& P notes. No acute hospital level of care orders initially, so "Outpt in a bed" appropriate initially. Needs progress notes for 04/22 & 04/23 to be visible on chart. On 04/24, pt developed hypotension w/MAPs 50s-60s repeatedly for which covering MD ordered IV NS @70 & a 250ml bolus while continuing beta maritza for Afib - therefore, appropriate for Obs status for 04/24 MN. Associate Art Director note of 04/24 recommends additional fluids per PEG - see in "NOTES" section on Rt on MUJIN screen. Pt then, on 9AM, developed Afib RVR up to 160 despite Toprol 25mg bid. Still w/hypotension/MAPs in 60s-70s on 04/25 AM. Covering MD ordered increase in po metoprolol dosing (which could worsen BP further), while he continued IVF @70. Therefore, appropriate to continue to monitor VS & clinical status closely in hospital for 04/25 night, so now appropriate for conversion to Inpt status. HR 60s-90s since then, at least per vital signs section of chart, w/improved BPs. CK
[2018-04-26] MEDS: APIXABAN 2.5 MG TABLET PEG SCH ×2 (10:59→21:12)
[2018-04-26] MEDS: METOPROLOL TARTRATE 25 MG TABLET PEG SCH ×2 (10:59→21:12)
[2018-04-26] MEDS: BUSPIRONE HCL 10 MG TABLET PEG SCH ×2 (10:59→21:12)
[2018-04-26] MEDS: CALCITRIOL 1 MCG/ML ORAL SOLN 15 ML PEG SCH ×2 (11:00→17:09)
[2018-04-26] MEDS: NORMAL SALINE 1000 ML 1,000 ML IV PRN (11:01)
[2018-04-26] MEDS: ATORVASTATIN CALCIUM 80 MG TABLET PEG SCH (17:08)
[2018-04-26] MEDS: LANSOPRAZOLE 15 MG TAB.RAP.DR PEG SCH (21:12)
[2018-04-26] MEDS: MIRTAZAPINE 15 MG TABLET PEG SCH (21:12)
[2018-04-26] MEDS: SENNOSIDES/DOCUSATE 8.6-50 MG 1 EACH TABLET PEG SCH (21:13)
[2018-04-27] MEDS: NORMAL SALINE 1000 ML 1,000 ML IV PRN ×2 (01:46→16:54)
[2018-04-27] MEDS: CALCIUM CARBONATE 500 MG TABLET PEG SCH ×3 (05:32→21:33)
[2018-04-27] MEDS: LEVOTHYROXINE SODIUM 0.112 MG TABLET PEG SCH (05:32)
[2018-04-27] MEDS: IPRATROPIUM/ALBUTEROL 0.5-2.5 MG/3 ML AMPUL NEB SCH ×4 (08:44→21:10)
[2018-04-27] MEDS: CALCITRIOL 1 MCG/ML ORAL SOLN 15 ML PEG SCH ×2 (11:07→17:27)
[2018-04-27] MEDS: METOPROLOL TARTRATE 25 MG TABLET PEG SCH ×2 (11:07→21:32)
[2018-04-27] MEDS: APIXABAN 2.5 MG TABLET PEG SCH ×2 (11:08→21:32)
[2018-04-27] MEDS: BUSPIRONE HCL 10 MG TABLET PEG SCH ×2 (11:08→21:32)
--- NOTE | 2018-04-27 13:34 | PDOC PROGRESS REPORT ---
Subjective Progress Note for:: 04/26/18 Subjective:: Patient was admitted for the management of dehydration, history of recurrent laryngeal cancer Reason For Visit: ATRIAL METASTATIC LARYNGEAL CANCER Physical Exam Vital Signs: Temp Pulse Resp BP Pulse Ox 97.5 F 90 16 116/70 96 04/27/18 11:33 04/27/18 12:11 04/27/18 12:11 04/27/18 11:33 04/27/18 12:11 Intake & Output 04/26/18 04/27/18 04/28/18 06:59 06:59 06:59 Intake Total 1000 3436 371 Output Total 1050 1725 Balance -50 1711 371 Weight 69.9 kg 68.3 kg General appearance: PRESENT: no acute distress Eye exam: PRESENT: PERRLA Respiratory exam: PRESENT: clear to auscultation perlita Cardiovascular exam: PRESENT: +S1, +S2 GI/Abdominal exam: PRESENT: soft Neurological exam: PRESENT: alert Assessment & Plan - Diagnosis (1) Malignant neoplasm of larynx Is this a current diagnosis for this admission?: Yes
[2018-04-27] MEDS: OXYCODONE HCL IR 5 MG TABLET PEG PRN (16:22)
[2018-04-27] MEDS ORDERED: DILTIAZEM HCL INJ 25 MG/5 ML VIAL ONE (16:46)
[2018-04-27] MEDS: DILTIAZEM HCL/D5W 125 MG/125 ML RTUINJ IV PRN ×2 (17:17→23:58)
[2018-04-27] MEDS: ATORVASTATIN CALCIUM 80 MG TABLET PEG SCH (17:27)
--- NOTE | 2018-04-27 19:39 | PDOC PROGRESS REPORT ---
Subjective Progress Note for:: 04/27/18 Subjective:: Patient was seen by the bedside, he atrial fibrillation with rapid ventricular response, he was started on Cardizem drip Reason For Visit: ATRIAL METASTATIC LARYNGEAL CANCER Physical Exam Vital Signs: Temp Pulse Resp BP Pulse Ox 98.5 F 85 16 143/67 H 97 04/27/18 16:07 04/27/18 18:50 04/27/18 16:27 04/27/18 18:50 04/27/18 16:27 Intake & Output 04/26/18 04/27/18 04/28/18 06:59 06:59 06:59 Intake Total 1000 3436 1886 Output Total 1050 1725 675 Balance -50 1711 1211 Weight 69.9 kg 68.3 kg General appearance: PRESENT: no acute distress Eye exam: PRESENT: PERRLA Respiratory exam: PRESENT: clear to auscultation perlita Cardiovascular exam: PRESENT: +S1, +S2 GI/Abdominal exam: PRESENT: soft Neurological exam: PRESENT: alert Assessment & Plan - Diagnosis (1) Malignant neoplasm of larynx Is this a current diagnosis for this admission?: Yes (2) Atrial fibrillation with rapid ventricular response Is this a current diagnosis for this admission?: Yes Plan: Start Cardizem infusion
[2018-04-27] MEDS: SENNOSIDES/DOCUSATE 8.6-50 MG 1 EACH TABLET PEG SCH (21:33)
[2018-04-27] MEDS: LANSOPRAZOLE 15 MG TAB.RAP.DR PEG SCH (21:33)
[2018-04-27] MEDS: MIRTAZAPINE 15 MG TABLET PEG SCH (21:33)
--- NOTE | 2018-04-27 23:35 | EKG REPORT ---
SEVERITY:- ABNORMAL ECG - ATRIAL FIBRILLATION VENTRICULAR BIGEMINY LEFT ANTERIOR FASCICULAR BLOCK CONSIDER POSTERIOR INFARCT ST DEPRESSION, PROBABLY RATE RELATED BORDERLINE PROLONGED QT INTERVAL : Confirmed by: Yaquelin Oscar MD 27-Apr-2018 23:35:19
[2018-04-28] MEDS: LEVOTHYROXINE SODIUM 0.112 MG TABLET PEG SCH (05:38)
[2018-04-28] MEDS: CALCIUM CARBONATE 500 MG TABLET PEG SCH ×3 (05:38→22:21)
[2018-04-28] MEDS: NORMAL SALINE 1000 ML 1,000 ML IV PRN ×2 (07:16→22:28)
[2018-04-28] MEDS: IPRATROPIUM/ALBUTEROL 0.5-2.5 MG/3 ML AMPUL NEB SCH ×4 (08:38→20:20)
[2018-04-28] MEDS: BUSPIRONE HCL 10 MG TABLET PEG SCH ×2 (09:45→22:21)
[2018-04-28] MEDS: METOPROLOL TARTRATE 25 MG TABLET PEG SCH ×3 (09:46→22:20)
[2018-04-28] MEDS: APIXABAN 2.5 MG TABLET PEG SCH ×2 (09:47→22:22)
[2018-04-28] MEDS: CALCITRIOL 1 MCG/ML ORAL SOLN 15 ML PEG SCH ×2 (09:48→17:33)
[2018-04-28 17:27] LABS: ABSOLUTE BASOPHILS # (AUTO) 0.1 10^3/uL (0.0-0.2); ABSOLUTE EOSINOPHILS # (AUTO) 0.1 10^3/uL (0.0-0.6); ABSOLUTE LYMPHOCYTES (AUTO) 0.9 10^3/uL (0.5-4.7); ABSOLUTE MONOCYTES (AUTO) 0.6 10^3/uL (0.1-1.4); ABSOLUTE NEUT (AUTO) 4.3 10^3/uL (1.7-8.2); BASOPHILS % (AUTO) 1.1 % (0-2); EOSINOPHILS % (AUTO) 1.4 % (0-6); HEMOGLOBIN 11.4 g/dL (13.5-17.0); LYMPHOCYTES % (AUTO) 15.5 % (13-45); MEAN CORPUSCULAR HEMOGLOBIN 27.3 pg (27.0-33.4); MEAN CORPUSCULAR HGB CONC 33.6 g/dL (32.0-36.0); MEAN CORPUSCULAR VOLUME 81 fl (80-97); MONOCYTES % (AUTO) 9.8 % (3-13); PLATELET COUNT 362 10^3/uL (150-450); RED BLOOD COUNT 4.18 10^6/uL (4.35-5.55); RED CELL DISTRIBUTION WIDTH 15.8 % (11.5-14.0); SEGMENTED NEUTROPHILS % (AUTO) 72.2 % (42-78); TOTAL CELLS COUNTED % (AUTO) 100 %; WHITE BLOOD COUNT 5.9 10^3/uL (4.0-10.5)
[2018-04-28] MEDS: ATORVASTATIN CALCIUM 80 MG TABLET PEG SCH (17:32)
[2018-04-28 18:08] LABS: ANION GAP 9 (5-19); BLOOD UREA NITROGEN 5 mg/dL (7-20); CALCIUM 8.3 mg/dL (8.4-10.2); CARBON DIOXIDE 25 mmol/L (22-30); CHLORIDE 103 mmol/L (98-107); GLUCOSE 103 mg/dL (75-110); POTASSIUM 4.1 mmol/L (3.6-5.0); SODIUM 137.4 mmol/L (137-145)
--- NOTE | 2018-04-28 20:27 | PDOC PROGRESS REPORT ---
Subjective Progress Note for:: 04/28/18 Subjective:: Patient with metastatic laryngeal cancer, developed A. fib with rapid ventricular response was on Cardizem infusion Reason For Visit: ATRIAL METASTATIC LARYNGEAL CANCER Physical Exam Vital Signs: Temp Pulse Resp BP Pulse Ox 99.1 F 74 16 127/68 H 99 04/28/18 15:39 04/28/18 20:22 04/28/18 20:22 04/28/18 17:00 04/28/18 20:22 Intake & Output 04/27/18 04/28/18 04/29/18 06:59 06:59 06:59 Intake Total 3436 2622 1700 Output Total 1725 1275 650 Balance 1711 1347 1050 Weight 68.3 kg 69.7 kg General appearance: PRESENT: no acute distress Eye exam: PRESENT: PERRLA Respiratory exam: PRESENT: clear to auscultation perlita Cardiovascular exam: PRESENT: +S1, +S2 GI/Abdominal exam: PRESENT: soft Neurological exam: PRESENT: alert Results Laboratory Results: 04/28/18 16:50 04/28/18 16:50 04/28/18 04/28/18 16:50 16:50 WBC 5.9 RBC 4.18 L Hgb 11.4 L Hct 34.0 L MCV 81 MCH 27.3 MCHC 33.6 RDW 15.8 H Plt Count 362 Seg Neutrophils % 72.2 Lymphocytes % 15.5 Monocytes % 9.8 Eosinophils % 1.4 Basophils % 1.1 Absolute Neutrophils 4.3 Absolute Lymphocytes 0.9 Absolute Monocytes 0.6 Absolute Eosinophils 0.1 Absolute Basophils 0.1 Sodium 137.4 Potassium 4.1 Chloride 103 Carbon Dioxide 25 Anion Gap 9 BUN 5 L Creatinine 0.50 L Est GFR ( Amer) > 60 Est GFR (Non-Af Amer) > 60 Glucose 103 Calcium 8.3 L Assessment & Plan - Diagnosis (1) Malignant neoplasm of larynx Is this a current diagnosis for this admission?: Yes (2) Atrial fibrillation with rapid ventricular response Is this a current diagnosis for this admission?: Yes Plan: DC IV Cardizem, transition to p.o.
[2018-04-28] MEDS: LANSOPRAZOLE 15 MG TAB.RAP.DR PEG SCH (22:22)
[2018-04-28] MEDS: MIRTAZAPINE 15 MG TABLET PEG SCH (22:22)
[2018-04-28] MEDS: SENNOSIDES/DOCUSATE 8.6-50 MG 1 EACH TABLET PEG SCH (22:22)
[2018-04-29] MEDS ORDERED: DILTIAZEM HCL INJ 25 MG/5 ML VIAL ONE (02:09)
[2018-04-29] MEDS ORDERED: DILTIAZEM HCL INJ 25 MG/5 ML VIAL IV PRN (02:13)
[2018-04-29] MEDS: METOPROLOL TARTRATE 25 MG TABLET PEG SCH ×2 (02:20→09:02)
[2018-04-29] MEDS: CALCIUM CARBONATE 500 MG TABLET PEG SCH (05:41)
[2018-04-29] MEDS: LEVOTHYROXINE SODIUM 0.112 MG TABLET PEG SCH (05:41)
[2018-04-29] MEDS: IPRATROPIUM/ALBUTEROL 0.5-2.5 MG/3 ML AMPUL NEB SCH ×4 (08:01→21:15)
[2018-04-29] MEDS: ACETAMINOPHEN 325 MG TABLET PEG PRN (08:58)
[2018-04-29] MEDS: BUSPIRONE HCL 10 MG TABLET PEG SCH ×2 (09:02→22:01)
[2018-04-29] MEDS: CALCITRIOL 1 MCG/ML ORAL SOLN 15 ML PEG SCH ×2 (09:02→17:22)
[2018-04-29] MEDS: APIXABAN 2.5 MG TABLET PEG SCH ×2 (09:02→22:02)
[2018-04-29] MEDS: NORMAL SALINE 1000 ML 1,000 ML IV PRN (10:58)
[2018-04-29] MEDS ORDERED: ACETAMINOPHEN SOLN 325 MG/10.15 ML UDCUP PEG PRN (11:23)
[2018-04-29] MEDS: CALCIUM CARBONATE 500 MG TAB.CHEW PEG SCH ×2 (14:25→22:01)
[2018-04-29] MEDS: ATORVASTATIN CALCIUM 80 MG TABLET PEG SCH (17:22)
--- NOTE | 2018-04-29 21:29 | PDOC PROGRESS REPORT ---
Subjective Progress Note for:: 04/29/18 Subjective:: Patient seen by the bedside continues to improve Reason For Visit: ATRIAL METASTATIC LARYNGEAL CANCER Physical Exam Vital Signs: Temp Pulse Resp BP Pulse Ox 99.0 F 70 18 149/77 H 100 04/29/18 15:08 04/29/18 15:08 04/29/18 15:08 04/29/18 15:08 04/29/18 15:08 Intake & Output 04/28/18 04/29/18 04/30/18 06:59 06:59 06:59 Intake Total 2622 2780 1385 Output Total 1275 1275 600 Balance 1347 1505 785 Weight 69.7 kg 71.3 kg General appearance: PRESENT: no acute distress Eye exam: PRESENT: PERRLA Cardiovascular exam: PRESENT: +S1, +S2 GI/Abdominal exam: PRESENT: soft Neurological exam: PRESENT: alert Results Laboratory Results: 04/28/18 16:50 04/28/18 16:50 Assessment & Plan - Diagnosis (1) Malignant neoplasm of larynx Is this a current diagnosis for this admission?: Yes (2) Atrial fibrillation with rapid ventricular response Is this a current diagnosis for this admission?: Yes
--- NOTE | 2018-04-29 21:37 | PDOC TRANSFER SUMMARY ---
General - Admit/Disc Date/PCP Admission Date/Primary Care Provider: 04/21/18 15:04 HETAL HOPKINS MD Discharge Date: 04/30/18 - Discharge Diagnosis (1) Malignant neoplasm of larynx Is this a current diagnosis for this admission?: Yes (2) Atrial fibrillation with rapid ventricular response Is this a current diagnosis for this admission?: Yes - Additional Information Resuscitation Status: Do Not Resuscitate Home Medications: Acetaminophen [Tylenol Extra Strength 500 mg Tablet] 500 mg PO Q6HP PRN Apixaban [Eliquis 2.5 mg Tablet] 2.5 mg PO Q12 04/21/18 Bisacodyl [Dulcolax 10 mg Supp.rect] 10 mg SC DAILYP PRN 04/21/18 Buspirone HCl [Buspar 5 mg Tablet] 5 mg PO BID 04/21/18 Calcitriol [Rocaltrol 1 mcg/1 mL Oral Soln 15 mL] 0.3 mcg PO BID 04/21/18 Calcium Carbonate [Calcium] 500 mg PO TID 04/21/18 Docusate Sodium 10 ml PO BIDP PRN 04/21/18 Ipratropium/Albuterol Sulfate [Duoneb 3 ml Ampul] 3 ml NEB RTQID 04/21/18 Levothyroxine Sodium [Synthroid 0.112 mg Tablet] 0.112 mg PO Q6AM 04/21/18 Lisinopril [Prinivil 5 mg Tablet] 5 mg PO DAILY 04/21/18 Metoprolol Tartrate [Lopressor 25 mg Tablet] 25 mg PO Q12 04/21/18 Mirtazapine [Remeron 15 mg Tablet] 15 mg PO QHS 04/21/18 Naloxone HCl [Narcan] 4 mg NS ASDIR PRN 04/21/18 Omeprazole 20 mg PO QHS 04/21/18 Oxycodone HCl [Oxy-Ir 5 mg Tablet] 10 mg PO Q8HP PRN 04/21/18 Scopolamine 1 each TD Q72HP PRN 04/21/18 Sennosides [Senna] 17.2 mg PO QHS 04/21/18 Metoprolol Tartrate [Lopressor 100 mg Tablet] 100 mg PEG Q12 tablet 04/29/18 History of Present Illness Admission Date/PCP: 04/21/18 15:04 HETAL HOPKINS MD History of Present Illness: LEONARD CAAL is a 72 year old male, He has stage IV laryngeal cancer, status post radical laryngectomy, radiation therapy, the present disease is inoperable essentially he has terminal cancer. He was recently admitted and discharged from this hospital on April 05, 2018 about 2 weeks ago. The plan is for patient to be placed in a group home, he has a feeding tube in place, family is not able to care for this patient anymore Hospital Course Hospital Course: Patient was admitted for the management of dehydration hospital course was complicated with atrial fibrillation with rapid ventricular response requiring Cardizem infusion, he has history of recurrent laryngeal cancer, not operable, he was treated with radical laryngectomy with radiation therapy. Patient overall prognosis is very poor, the plan is to transfer to a group home for continuity of care Physical Exam Vital Signs: Temp Pulse Resp BP Pulse Ox 99.0 F 70 18 149/77 H 100 04/29/18 15:08 04/29/18 15:08 04/29/18 15:08 04/29/18 15:08 04/29/18 15:08 Intake & Output 04/28/18 04/29/18 04/30/18 06:59 06:59 06:59 Intake Total 2622 2780 1385 Output Total 1275 1275 600 Balance 1347 1505 785 Weight 69.7 kg 71.3 kg General appearance: PRESENT: no acute distress Eye exam: PRESENT: PERRLA Respiratory exam: PRESENT: clear to auscultation perlita Cardiovascular exam: PRESENT: +S1, +S2 GI/Abdominal exam: PRESENT: soft Neurological exam: PRESENT: alert Results Laboratory Results: 04/28/18 16:50 04/28/18 16:50 Qualifiers - * PATIENT BEING DISCHARGED WITH ANY OF THE FOLLOWING DIAGNOSIS: No
[2018-04-29] MEDS: MIRTAZAPINE 15 MG TABLET PEG SCH (22:02)
[2018-04-29] MEDS: SENNOSIDES/DOCUSATE 8.6-50 MG 1 EACH TABLET PEG SCH (22:02)
[2018-04-29] MEDS: LANSOPRAZOLE 15 MG TAB.RAP.DR PEG SCH (22:02)
[2018-04-29] MEDS: METOPROLOL TARTRATE 100 MG TABLET PEG SCH (22:03)
[2018-04-30] MEDS: LEVOTHYROXINE SODIUM 0.112 MG TABLET PEG SCH (05:08)
[2018-04-30] MEDS: CALCIUM CARBONATE 500 MG TAB.CHEW PEG SCH ×2 (05:09→15:34)
[2018-04-30] MEDS: NORMAL SALINE 1000 ML 1,000 ML IV PRN (06:23)
[2018-04-30] MEDS: IPRATROPIUM/ALBUTEROL 0.5-2.5 MG/3 ML AMPUL NEB SCH ×2 (08:57→12:15)
[2018-04-30] MEDS: METOPROLOL TARTRATE 100 MG TABLET PEG SCH (10:41)
[2018-04-30] MEDS: APIXABAN 2.5 MG TABLET PEG SCH (10:41)
[2018-04-30] MEDS: BUSPIRONE HCL 10 MG TABLET PEG SCH (10:41)
[2018-04-30] MEDS: CALCITRIOL 1 MCG/ML ORAL SOLN 15 ML PEG SCH (10:42)
[2018-04-30 12:46] VITALS: BP 136/74
== END 2018-04-30 16:00 | DRG 641 ==
LOC: ER 11:38 → OBSVTOIN 15:04 → INTOOBSV 15:04 → EH 15:04 → 3S 17:42
PROVIDERS: ADMIT Internal Medicine; ATTEND Internal Medicine
DX: E86.0 Dehydration (principal); I48.91 Unspecified atrial fibrillation; C32.9 Malignant neoplasm of larynx, unspecified; I10 Essential (primary) hypertension; E78.5 Hyperlipidemia, unspecified; R09.02 Hypoxemia; K21.9 Gastro-esophageal reflux disease without esophagitis; J41.0 Simple chronic bronchitis; Z66 Do not resuscitate; Z79.899 Other long term (current) drug therapy; Z90.02 Acquired absence of larynx; Z93.1 Gastrostomy status; Z93.0 Tracheostomy status; Z87.891 Personal history of nicotine dependence; Z79.82 Long term (current) use of aspirin; Z92.3 Personal history of irradiation
CPT/HCPCS: 36415; 80048; 80053; 85025; 93005; 93010; 94640; J2405; J3010; J3490; J7030; J7120; J7620

== ENCOUNTER 2018-05-21 14:00 | Emergency (ER) | payer MEDICARE, MEDICAID ==
[2018-05-21] MEDS ORDERED: DIPHENHYDRAMINE HCL 50 MG/ML VIAL IV ONE (15:08)
[2018-05-21] MEDS ORDERED: METHYLPREDNISOLONE INJ 125 MG/2 ML SDV IV ONE (15:08)
[2018-05-21] MEDS ORDERED: HYDROMORPHONE HCL INJ/PF 2 MG/ML AMPULE IV ONE (15:14)
--- NOTE | 2018-05-21 15:20 | ER Document Report ---
ED General - General Chief Complaint: Swelling of Tongue Stated Complaint: TONGUE SWELLING Time Seen by Provider: 05/21/18 14:56 Mode of Arrival: Medic Information source: Emergency Med Personnel, [facility] Records, Outside Facility Records Cannot obtain history due to: Other - Enlarged tongue, trach Notes: 72-year-old male with hyperlipidemia, atrial fibrillation, hypertension, COPD, laryngeal cancer presents with tongue swelling. Patient is unable to provide history so contacted [facility] where nurse states that patient has had a swollen tongue for over 1 week. They have him providing mouth care as per the PCP. They state that a family friend came into the facility and demand that the patient be brought to the emergency department. Patient has been told by his primary care physician as well as his surgeon from [facility] that there are is no further treatment available for the patient. Hospice has been discussed multiple times but the patient continues to refuse. I did speak to the primary care physician who states that the patient needs to be placed on a morphine drip and in hospice. TRAVEL OUTSIDE OF THE [place] IN LAST 30 DAYS: No - HPI Onset: Last week Onset/Duration: Gradual, Worse Quality of pain: Throbbing Severity: Moderate - Related Data Allergies/Adverse Reactions: No Known Drug Allergies Allergy (Unknown, Verified 04/21/18 11:39) Past Medical History - General Information source: Patient, [facility] Records Cannot obtain history due to: Other - Social History Smoking Status: Former Smoker Frequency of alcohol use: None Drug Abuse: None Lives with: [facility] Family History: Reviewed & Not Pertinent Patient has suicidal ideation: No Patient has homicidal ideation: No - Past Medical History Cardiac Medical History: Reports: Hx Atrial Fibrillation, Hx Hypercholesterolemia, Hx Hypertension Denies: Hx Coronary Artery Disease, Hx Heart Attack Pulmonary Medical History: Reports: Hx COPD Denies: Hx Asthma, Hx Bronchitis, Hx Pneumonia Neurological Medical History: Denies: Hx Cerebrovascular Accident, Hx Seizures Renal/ Medical History: Denies: Hx Peritoneal Dialysis GI Medical History: Reports: Hx Gastroesophageal Reflux Disease, Hx Hiatal Hernia Musculoskeletal Medical History: Denies Hx Arthritis Psychiatric Medical History: Denies: Hx Depression Past Surgical History: Reports: Hx Thyroid Surgery - total w/ central neck dissection, Hx Vascular Surgery - left external carotic dissection w/ lysis & anastomosis, Other - Supraglottic mass resection and trach placement at [facility]. - Immunizations Hx Diphtheria, Pertussis, Tetanus Vaccination: Yes Review of Systems - Review of Systems -: Yes ROS unobtainable due to patient's medical condition Physical Exam - Vital signs Vitals: Resp BP Pulse Ox 30 H 121/81 98 05/21/18 14:09 05/21/18 14:09 05/21/18 14:09 Interpretation: No: Hypoxic - Notes Notes: PHYSICAL EXAMINATION: GENERAL: Frail, cachectic, HEAD: Atraumatic, normocephalic. EYES: Pupils equal round and reactive to light, extraocular movements intact, sclera anicteric, conjunctiva are normal. ENT: Nares patent, enlarged tongue, no lip swelling, patent tracheostomy NECK: Limited range of motion secondary to pain LUNGS: Breath sounds clear to auscultation bilaterally and equal. No wheezes rales or rhonchi. HEART: Regular rate and rhythm without murmurs ABDOMEN: Soft, nontender, nondistended abdomen. No guarding, no rebound. No masses appreciated. Musculoskeletal: Contractures NEUROLOGICAL: Alert, awake PSYCH: Normal mood, normal affect. SKIN: Warm, Dry, normal turgor, no rashes or lesions noted. Course - Re-evaluation Re-evalutation: Laboratory 05/21/18 05/21/18 14:40 14:40 WBC 6.7 RBC 4.53 Hgb 12.2 L Hct 36.8 L MCV 81 MCH 27.0 MCHC 33.2 RDW 16.1 H Plt Count 414 Seg Neutrophils % 75.4 Lymphocytes % 13.5 Monocytes % 8.8 Eosinophils % 1.6 Basophils % 0.7 Absolute Neutrophils 5.1 Absolute Lymphocytes 0.9 Absolute Monocytes 0.6 Absolute Eosinophils 0.1 Absolute Basophils 0.0 Sodium 134.0 L Potassium 4.7 Chloride 96 L Carbon Dioxide 32 H Anion Gap 6 BUN 19 Creatinine 0.55 Est GFR ( Amer) > 60 Est GFR (Non-Af Amer) > 60 Glucose 99 Calcium 8.6 Total Bilirubin 0.5 Direct Bilirubin 0.2 Neonat Total Bilirubin Not Reportable Neonat Direct Bilirubin Not Reportable Neonat Indirect Bili Not Reportable AST 81 H ALT 136 H Alkaline Phosphatase 265 H Total Protein 7.6 Albumin 3.6 Chest X-Ray 05/21/18 15:07 IMPRESSION: Early or developing right lower lobe airspace disease 72-year-old male with hyperlipidemia, atrial fibrillation, hypertension, COPD, laryngeal cancer presents with tongue swelling. Patient is unable to provide history so contacted [facility] where nurse states that patient has had a swollen tongue for over 1 week. They have him providing mouth care as per the PCP. They state that a family friend came into the facility and demand that the patient be brought to the emergency department. Patient has been told by his primary care physician as well as his surgeon from [facility] that there are is no further treatment available for the patient. Hospice has been discussed multiple times but the patient continues to refuse. I did speak to the primary care physician who states that the patient needs to be placed on a "morphine drip" and in hospice. Vital signs reviewed upon arrival. Previous medical records and nursing notes reviewed. CBC is without leukocytosis or anemia. CMP shows chronically elevated liver enzymes. Chest x-ray shows possible developing pneumonia. Patient did receive ceftriaxone and will be discharged home with liquid doxycycline. 05/21/18 15:10 [facility] contacted for further instruction regarding patient's angioedema. 05/21/18 15:[address] Hopkins that says patient has been maximized medically as far as what they can do for his recurrent cancer. He suggests pain management and hospice care at this point. 05/21/18 15:20 I did speak to the patient's stepson who states that he does not have power of contract attorney and believes that his prize coordinator Mrs. Cobb does. I did try to contact her regarding the patient's condition. 05/21/18 15:24 Spoke to [facility] who states that the patient's passenger representative believes despite being told several times that there is nothing further to do that the patient could receive additional care. I will contact social work to see about hospice. 05/21/18 19:38 Social work involved and after researching patient's last admission found that he was made a DNR. I have contacted the nursing facility again to make them aware of this. Unclear why his primary care physician does not initiate hospice care if no further treatment can be given. 05/21/18 19:48 Spoke at length to inpatient nursing aide at [facility] inquiring why the teacher Jordyn who is not power of contract attorney for family calling the shots regarding the patient's medical care. Asked them to please call the and inpatient nursing aide and director of rooms. I will contact Adult Protective Services at this time. 05/21/18 20:37 Report was filed with adult protective services. Patient will be transferred back to [facility]. 05/21/18 22:21 Patient's prize coordinator Kellen Cobb is now in the emergency department. She states that his significant other who is currently in [facility] has power of contract attorney. She confirms that the surgeon at [facility] so they are aware nothing further to do as far as his cancer. I have asked the patient repeatedly if he wants hospice referral and he continues to point to his prize coordinator. 05/21/18 23:36 I advised the friend that if the patient wants her to become power of contract attorney that this would have to be done at the nursing facility. Patient was evaluated and treated as appropriate for the patient's presenting symptoms and complaint, with consideration of any critical or life threatening conditions that may be associated with their obtained history and exam as noted above. All results were discussed with patient and nursing facility patient provided the opportunity to ask questions, and express concerns. Patient was educated on treatments based on their presumed diagnosis as noted above. At this time we will discharge the patient with return precautions and follow-up recommendations. Verbal discharge instructions given a the bedside. Medication warnings reviewed. Patient is in agreement with this plan and has verbalized understanding of return precautions. After careful consideration I feel that that patient can be safely discharged from the emergency department, they were advised to followup with a primary care physician in 2-3 days. Dictation on this chart was performed using voice recognition software and may result in unintended grammatical, spelling, syntax or errors. 05/21/18 23:37 05/21/18 23:38 - Vital Signs Vital signs: Temp Pulse Resp BP Pulse Ox 99.6 F 12 112/77 100 05/21/18 14:19 05/21/18 23:28 05/21/18 23:29 05/21/18 23:28 - Laboratory Result Diagrams: 05/21/18 14:40 05/21/18 14:40 Laboratory results interpreted by me: 05/21/18 05/21/18 14:40 14:40 Hgb 12.2 L Hct 36.8 L RDW 16.1 H Sodium 134.0 L Chloride 96 L Carbon Dioxide 32 H AST 81 H ALT 136 H Alkaline Phosphatase 265 H - Diagnostic Test Radiology reviewed: Image reviewed, Reports reviewed Critical Care Note - Critical Care Note Total time excluding time spent on procedures (mins): 60 - Minutes of critical care time spent in direct contact evaluating and reevaluating the patient, treating symptoms, reviewing labs and studies and speaking with family and consultants excluding any procedures Discharge - Discharge Clinical Impression: Laryngeal malignant neoplasm, Supraglottic edema Failure to thrive Qualifiers: Failure to thrive age range: in adult Qualified Code(s): R62.7 - Adult failure to thrive Angioedema Qualifiers: Encounter type: initial encounter Qualified Code(s): T78.3XXA - Angioneurotic edema, initial encounter Dysphagia Qualifiers: Dysphagia type: unspecified Qualified Code(s): R13.10 - Dysphagia, unspecified Pneumonia Qualifiers: Pneumonia type: due to unspecified organism Laterality: unspecified laterality Lung location: unspecified part of lung Qualified Code(s): J18.9 - Pneumonia, unspecified organism Condition: Fair Disposition: SNF-Other Instructions: Dysphagia ([facility]), Pneumonia ([facility]), Angioedema ([facility]) Prescriptions: Doxycycline Calcium [Vibramycin] 100 mg PO BID 7 Days #70 ml Referrals: HETAL HOPKINS MD [Primary Care Provider] - Follow up as needed
[2018-05-21 15:29] LABS: ABSOLUTE EOSINOPHILS # (AUTO) 0.1 10^3/uL (0.0-0.6); ABSOLUTE LYMPHOCYTES (AUTO) 0.9 10^3/uL (0.5-4.7); ABSOLUTE MONOCYTES (AUTO) 0.6 10^3/uL (0.1-1.4); ABSOLUTE NEUT (AUTO) 5.1 10^3/uL (1.7-8.2); BASOPHILS % (AUTO) 0.7 % (0-2); EOSINOPHILS % (AUTO) 1.6 % (0-6); HEMATOCRIT 36.8 % (37.9-51.0); HEMOGLOBIN 12.2 g/dL (13.5-17.0); LYMPHOCYTES % (AUTO) 13.5 % (13-45); MEAN CORPUSCULAR HGB CONC 33.2 g/dL (32.0-36.0); MEAN CORPUSCULAR VOLUME 81 fl (80-97); MONOCYTES % (AUTO) 8.8 % (3-13); PLATELET COUNT 414 10^3/uL (150-450); RED BLOOD COUNT 4.53 10^6/uL (4.35-5.55); RED CELL DISTRIBUTION WIDTH 16.1 % (11.5-14.0); SEGMENTED NEUTROPHILS % (AUTO) 75.4 % (42-78); TOTAL CELLS COUNTED % (AUTO) 100 %; WHITE BLOOD COUNT 6.7 10^3/uL (4.0-10.5)
[2018-05-21 15:54] LABS: ALANINE AMINOTRANSFERASE 136 U/L (21-72); ALBUMIN 3.6 g/dL (3.5-5.0); ALKALINE PHOSPHATASE 265 U/L (38-126); ANION GAP 6 (5-19); ASPARTATE AMINO TRANSFERASE 81 U/L (17-59); BILIRUBIN,DIRECT 0.2 mg/dL (0.0-0.4); BILIRUBIN,TOTAL 0.5 mg/dL (0.2-1.3); BLOOD UREA NITROGEN 19 mg/dL (7-20); CALCIUM 8.6 mg/dL (8.4-10.2); CARBON DIOXIDE 32 mmol/L (22-30); CHLORIDE 96 mmol/L (98-107); GLUCOSE 99 mg/dL (75-110); POTASSIUM 4.7 mmol/L (3.6-5.0); TOTAL PROTEIN 7.6 g/dL (6.3-8.2)
--- NOTE | 2018-05-21 16:40 | RADIOLOGY REPORT (SQ) ---
EXAM DESCRIPTION: CHEST 2 VIEWS COMPLETED DATE/TIME: 05/21/2018 4:21 pm REASON FOR STUDY: tongue swelling/trach COMPARISON: CT chest 04/02/2018 AP chest 04/02/2018 EXAM PARAMETERS: NUMBER OF VIEWS: two views TECHNIQUE: Digital Frontal and Lateral radiographic views of the chest acquired. RADIATION DOSE: NA LIMITATIONS: Patient is rotated towards the [place] orientation FINDINGS: LUNGS AND PLEURA: Question early or developing right lower lobe infiltrate Left lung grossly clear. No right or left pleural effusions or pneumothorax. MEDIASTINUM AND HILAR STRUCTURES: No masses or contour abnormalities. HEART AND VASCULAR STRUCTURES: No cardiomegaly BONES: No acute findings. HARDWARE: Right-sided permanent central line tip superior vena cava. Tracheostomy present without tr acheostomy tube identified. OTHER: No other significant finding. IMPRESSION: Early or developing right lower lobe airspace disease TECHNICAL DOCUMENTATION: JOB ID: [id number] [employer]- All Rights Reserved Reading location - IP/workstation name: [email or web address]
[2018-05-21] MEDS ORDERED: NORMAL SALINE 1000 ML 1,000 ML IV ONE (17:12)
[2018-05-21] MEDS ORDERED: CEFTRIAXONE 1 GM/D5W RTU 1 GM/50 ML RTUPB IV ONE (17:53)
[2018-05-21] MEDS ORDERED: FENTANYL CITRATE INJ/PF 100 MCG/2 ML AMPUL IV ONE (22:14)
[2018-05-21 23:30] VITALS: BP 112/77
== END 2018-05-21 23:30 ==
LOC: ER 14:00
DX: T78.3XXA Angioneurotic edema, initial encounter (principal); C32.9 Malignant neoplasm of larynx, unspecified; J18.9 Pneumonia, unspecified organism; J44.0 Chronic obstructive pulmonary disease with (acute) lower respiratory infection; R62.7 Adult failure to thrive; R13.10 Dysphagia, unspecified; I10 Essential (primary) hypertension; Z87.891 Personal history of nicotine dependence; R74.8 Abnormal levels of other serum enzymes; Z66 Do not resuscitate
CPT/HCPCS: 99291; 96361; 96375; 96365; 36415; 85025; 80053; 71046; J1200; J3010; J2930; J1170; J7030; J0696

== ENCOUNTER 2018-05-22 03:52 | Inpatient (IN) | payer MEDICARE, MEDICAID ==
--- NOTE | 2018-05-22 04:24 | ER Document Report ---
Addendum entered and electronically signed by MURTAZA MCKINNEY FNP 05/22/18 10:16: Course - Re-evaluation Re-evalutation: The time of my evaluation the patient had copious amounts of blood in his nares and is mouth. The blood was cleaned up multiple times during my care. Patient's hemoglobin is 11. He had dropped 1 point from yesterday afternoon. I reviewed Dr. Jaffe's note in regards to her conversation with the care home and the patient's POA. I have consulted Dr. Burnette in regards to the patient's case. He helped extract the clots from his nose and mouth. The patient tolerated the procedure well. After the patient's linen was changed, the patient went into SVT. He has a history of atrial fibrillation. Dr. Burnette came to bedside and a 12-lead EKG was done, which confirmed SVT. He was given 6 mg of adenosine and converted to atrial fibrillation. The patient was then sta rted on a Cardizem drip. Before the drip started, the patient went into SVT again. 15 mg of IV Cardizem was given to help with his SVT and the patient converted back into atrial fibrillation in the low 100s. Dr. Burnette was in contact with Dr. Nicole, who is on-call for Dr. Hopkins. The patient will be admitted to [facility]. - Vital Signs Vital signs: Temp Pulse Resp BP Pulse Ox 98.2 F 20 92/71 L 99 05/22/18 04:06 05/22/18 09:17 05/22/18 09:17 05/22/18 09:16 - Laboratory Result Diagrams: 05/22/18 04:41 05/22/18 05:10 Laboratory results interpreted by me: 05/22/18 05/22/18 04:41 05:10 RBC 4.14 L Hgb 11.1 L Hct 34.3 L MCH 26.9 L RDW 15.8 H Seg Neutrophils % 85.2 H Lymphocytes % 9.9 L Sodium 135.1 L Carbon Dioxide 21 L D BUN 22 H Glucose 204 H Calcium 8.1 L AST 66 H ALT 115 H Alkaline Phosphatase 218 H Albumin 3.2 L Addendum entered and electronically signed by MURTAZA MCKINNEY FNP 05/22/18 10:07: Physical Exam - Vital signs Vitals: Pulse Ox 99 05/22/18 04:02 - Notes Notes: PHYSICAL EXAMINATION: GENERAL: Appears chronically ill, dehydrated, no acute distress. HEAD: Normocephalic, atraumatic. EYES: PERRL, conjunctiva normal, all extraocular movements intact, sclera nonicteric ENT: Moist mucous membranes. Copious amounts of blood clots noted to nose and mouth. Edema to tongue, which is chronic. NECK: Supple, no noticeable swelling, redness, rash. Normal range of motion. Tracheostomy noted with no inner cannula, dry blood noted, but patent. LUNGS: Equal breath sounds bilaterally and clear to auscultation. No wheezes rales or rhonchi. CARDIOVASCULAR: SVT, irregular rhythm. Radial pulses 2+, normal. ABDOMEN: Normoactive bowel sounds. Soft, nontender, no guarding, no rebound tenderness, and no masses palpated. Gastric tube noted to left abdomen. EXTREMITIES: Normal strength and range of motion, no pitting or edema. No cyanosis. NEUROLOGICAL: Moves upper extremities upon command. Contractions noted to lower extremities at the knees. SKIN: Warm, dry. No rash, lesions, ulcerations noted. Normal skin turgor. Addendum entered and electronically signed by MURTAZA MCKINNEY FNP 05/22/18 10:02: Review of Systems - Review of Systems Notes: Unable to perform a complete review of systems. Patient is trached and is only able to communicate via shaking his head yes or no. When asked if he has any shortness of breath, chest pain, nausea, or diarrhea he shook his head no. Original Note: ED General - General TRAVEL OUTSIDE OF THE [place] IN LAST 30 DAYS: No <MURTAZA MCKINNEY - Last Filed: 05/22/18 06:34> <CHINO BURNETTE - Last Filed: 05/22/18 08:06> - General Chief Complaint: Mouth Problem Stated Complaint: MOUTH BLEEDING Time Seen by Provider: 05/22/18 04:19 Notes: Patient is a 72-year-old male who presents to the emergency department with a swollen tongue and bleeding from his trach site. The patient is a DNR. He was seen earlier in the emergency department and sent back to care home. He has copious amounts of blood from his trach and from his mouth and nose. He has laryngeal cancer. (MURTAZA MCKINNEY) - Related Data Allergies/Adverse Reactions: No Known Drug Allergies Allergy (Unknown, Verified 04/21/18 11:39) Past Medical History - Social History Smoking Status: Unknown if Ever Smoked Family History: Reviewed & Not Pertinent Patient has suicidal ideation: No Patient has homicidal ideation: No - Past Medical History Cardiac Medical History: Reports: Hx Atrial Fibrillation, Hx Hypercholesterolemia, Hx Hypertension Denies: Hx Coronary Artery Disease, Hx Heart Attack Pulmonary Medical History: Reports: Hx COPD Denies: Hx Asthma, Hx Bronchitis, Hx Pneumonia Neurological Medical History: Denies: Hx Cerebrovascular Accident, Hx Seizures Renal/ Medical History: Denies: Hx Peritoneal Dialysis GI Medical History: Reports: Hx Gastroesophageal Reflux Disease, Hx Hiatal Hernia Musculoskeletal Medical History: Denies Hx Arthritis Psychiatric Medical History: Denies: Hx Depression Past Surgical History: Reports: Hx Thyroid Surgery - total w/ central neck dissection, Hx Vascular Surgery - left external carotic dissection w/ lysis & anastomosis, Other - Supraglottic mass resection and trach placement at [facility]. - Immunizations Hx Diphtheria, Pertussis, Tetanus Vaccination: Yes <MURTAZA MCKINNEY - Last Filed: 05/22/18 06:34> - Vital signs Vitals: Pulse Ox 99 05/22/18 04:02 Course - Laboratory Result Diagrams: 05/22/18 04:41 05/22/18 05:10 <MURTAZA MCKINNEY - Last Filed: 05/22/18 06:34> - Laboratory Result Diagrams: 05/22/18 04:41 05/22/18 05:10 <CHINO BURNETTE - Last Filed: 05/22/18 08:06> - Re-evaluation Re-evalutation: 05/22/18 07:31 Patient was initially seen by nurse practitioner. She tolerated the patient. Patient has history of laryngeal cancer has been bleeding from the mouth. Was seen earlier by Dr. Jaffe and sent home after long discussion with caretakers and care home. Patient is a DNR. I did review the records from Dr. Jaffe as well as most recent discharge summary from Dr. Hopkins. Patient has severe laryngeal cancer that is nonoperative. Is been recommended to him several times for hospice but apparently has refused several times in the past. Earlier he was seen by Dr. Jaffe. He came in because of the tongue swelling which is chronic for him. Many phone calls were made between the care home and Dr. Jaffe as well as with a friend who the care home initially thought was his power of commonwealth attorney but actually is not. Patient's power of commonwealth attorney is apparently his significant other at another care home. Patient was discharged back to care home but was sent back here because he had bleeding from his nose and oropharynx. Patient is on blood thinners for atrial fibrillation per his previous discharge summary. Patient apparently been bleeding here in the ER. The nurse practitioner asked me to look at him. Is able to move several clots from his nose. He has big clot in his oropharynx which I was able to remove most of. There is still some residual clot in the remainder of his mouth that is slowly breaking down and he has blood-tinged sputum draining from his mouth. He does not appear to have continuous active bleeding. He has some dried blood around his tracheal stoma but there is no active bleeding there either. Appears that the bleeding is stopped. I did call and speak with Dr. Nicole who is covering Dr. Hopkins. I asked him about the possibility of admission as I suspect that the patient will be continued to be sent back to the ER from the care home until all these clots breakdown as it would appear that the patient still has bleeding as he will continue to have some blood-tinged sputum coming from his nose and oropharynx until the clots breakdown. As much could just observe the patient overnight continue oral nasal care here and hold his blood thinners and then sent back tomorrow. Dr. Nicole refuses and says that the patient just needs his blood thinner held and that all this care can be performed at the care home. Will monitor patient for low bit longer. If he does not continue show any signs of active bleeding then we will attempt to send back to the care home as requested by Dr. Nicole. I did explain the plan to the patient. He shakes his head yes and agreement to this. Also explained to him that he is a DNR. I asked about hospice. He just kind of shrugs his shoulders in regards to whether or not he wants hospice. He is agreeable to being a DNR which she apparently already has per his records. He seems very well aware that there is no surgical options for his underlying cancer. Patient is breathing well. His oxygen saturations 99% without any oxygen to go with the trach mask. His lung harmon are clear. Hopefully his bleeding will remain stopped and we can send him back to the care home with instructions to hold his blood thinner. 05/22/18 07:58 After I finally got clots cleared from the patient's nose he then went into SVT. Heart rate was in the 180s with narrow complex. EKG confirms SVT. He was given adenosine. He broke out of of the SVT and was having what appeared to be on the monitor intermittent runs of atrial fibrillation mixed with runs of sinus rhythm with occasional PVC and sometimes bigeminy. I therefore requested him to be placed on a Cardizem drip to keep his rate control. As restarting Cardizem drip he went back into SVT again. We pushed 15 mg of Cardizem IV and this has taken him out of SVT again. He is now on a Cardizem drip at 10 and his heart rate is in the 90s and low 100s. His rhythm currently is showing sinus rhythm with occasional PVCs. I called Dr. Nicole back. Informed him of the patient's rhythm changes and informed him I really do not feel I can send this patient home when he is on Cardizem drip and he has had 2 runs of SVT requiring medication to revers ing it. Patient is a DNR but he is not a hospice patient. I spoke with Dr. Nicole who says that he would agree for patient to be admitted to Dr. Hopkins service on [facility]. 05/22/18 08:03 (CHINO BURNETTE) - Vital Signs Vital signs: Temp Pulse Resp BP Pulse Ox 98.2 F 25 H 107/63 98 05/22/18 04:06 05/22/18 07:01 05/22/18 07:01 05/22/18 07:00 - Laboratory Laboratory results interpreted by me: 05/22/18 05/22/18 04:41 05:10 RBC 4.14 L Hgb 11.1 L Hct 34.3 L MCH 26.9 L RDW 15.8 H Seg Neutrophils % 85.2 H Lymphocytes % 9.9 L Sodium 135.1 L Carbon Dioxide 21 L D BUN 22 H Glucose 204 H Calcium 8.1 L AST 66 H ALT 115 H Alkaline Phosphatase 218 H Albumin 3.2 L - EKG Interpretation by Me Additional EKG results interpreted by me: 05/22/18 08:04 EKG pre-adenosine shows SVT with a rate of [address] segment elevation. Some mild ST segment depression in anterior precordial leads. QRS duration is within normal range. QT interval is prolonged. EKG post adenosine shows sinus rhythm with ventricular bigeminy. Rate is approximately [address] segment elevation or depression. (CHINO BURNETTE) Discharge <MURTAZA MCKINNEY - Last Filed: 05/22/18 06:34> - Discharge Admitting Provider: [facility] Unit Admitted: [facility] <CHINO BURNETTE - Last Filed: 05/22/18 08:06> - Discharge Clinical Impression: SVT (supraventricular tachycardia), Oropharyngeal bleeding Condition: Stable Disposition: ADMITTED INPATIENT Referrals: HETAL HOPKINS MD [Primary Care Provider] - Follow up as needed
[2018-05-22 04:48] LABS: ABSOLUTE LYMPHOCYTES (AUTO) 0.8 10^3/uL (0.5-4.7); ABSOLUTE MONOCYTES (AUTO) 0.4 10^3/uL (0.1-1.4); ABSOLUTE NEUT (AUTO) 7.1 10^3/uL (1.7-8.2); BASOPHILS % (AUTO) 0.3 % (0-2); HEMATOCRIT 34.3 % (37.9-51.0); HEMOGLOBIN 11.1 g/dL (13.5-17.0); LYMPHOCYTES % (AUTO) 9.9 % (13-45); MEAN CORPUSCULAR HEMOGLOBIN 26.9 pg (27.0-33.4); MEAN CORPUSCULAR HGB CONC 32.5 g/dL (32.0-36.0); MEAN CORPUSCULAR VOLUME 83 fl (80-97); MONOCYTES % (AUTO) 4.6 % (3-13); PLATELET COUNT 392 10^3/uL (150-450); RED BLOOD COUNT 4.14 10^6/uL (4.35-5.55); RED CELL DISTRIBUTION WIDTH 15.8 % (11.5-14.0); SEGMENTED NEUTROPHILS % (AUTO) 85.2 % (42-78); TOTAL CELLS COUNTED % (AUTO) 100 %; WHITE BLOOD COUNT 8.4 10^3/uL (4.0-10.5)
[2018-05-22 05:38] LABS: ALANINE AMINOTRANSFERASE 115 U/L (21-72); ALBUMIN 3.2 g/dL (3.5-5.0); ALKALINE PHOSPHATASE 218 U/L (38-126); ASPARTATE AMINO TRANSFERASE 66 U/L (17-59); BILIRUBIN,DIRECT 0.2 mg/dL (0.0-0.4); BILIRUBIN,TOTAL 0.4 mg/dL (0.2-1.3); BLOOD UREA NITROGEN 22 mg/dL (7-20); CALCIUM 8.1 mg/dL (8.4-10.2); CHLORIDE 100 mmol/L (98-107); GLUCOSE 204 mg/dL (75-110); POTASSIUM 4.1 mmol/L (3.6-5.0); SODIUM 135.1 mmol/L (137-145); TOTAL PROTEIN 6.6 g/dL (6.3-8.2)
[2018-05-22 05:49] LABS: ANION GAP 14 (5-19)
[2018-05-22 05:52] LABS: CARBON DIOXIDE 21 mmol/L (22-30)
[2018-05-22] MEDS ORDERED: NORMAL SALINE 1000 ML 2,000 ML IV ONE (06:33)
[2018-05-22] MEDS ORDERED: ADENOSINE INJ/PF 6 MG/2 ML SDV IV ONE ×2 (07:43→07:49)
[2018-05-22] MEDS ORDERED: DILTIAZEM HCL/D5W 125 MG/125 ML RTUINJ IV ONE (07:48)
[2018-05-22] MEDS ORDERED: DILTIAZEM HCL/D5W 125 MG/125 ML RTUINJ IV PRN (07:49)
[2018-05-22] MEDS ORDERED: DILTIAZEM HCL INJ 25 MG/5 ML VIAL IV ONE (08:02)
[2018-05-22] MEDS: NORMAL SALINE 1000 ML 1,000 ML IV PRN ×2 (11:00→21:00)
--- NOTE | 2018-05-22 12:42 | EKG REPORT ---
SEVERITY:- ABNORMAL ECG - SUPRAVENTRICULAR TACHYCARDIA LEFT ANTERIOR FASCICULAR BLOCK PROBABLE ANTEROSEPTAL INFARCT, AGE INDETERM ST DEPRESSION, PROBABLY RATE RELATED : Confirmed by: Yaquelin Oscar MD 22-May-2018 12:41:36
--- NOTE | 2018-05-22 14:02 | PDOC H&P ---
History of Present Illness Admission Date/PCP: 05/22/18 08:41 HETAL HOPKINS MD Patient complains of: Recurrent mouth and nasal bleeding History of Present Illness: LEONARD CAAL is a 72 year old male patient of Dr Hopkins resident at [facility] who presented to the ED for recurrent nasal and mouth bleeding while on Eliquis for chronic atrial fibrillation. There was reported component of bleeding at his tracheostomy site. Patient has history of laryngeal cancer necessitating tracheostomy management. Patient have had several ED visit for same problem, managed and returned to the detention only to be sent back to the ED for same problem. He remain on Eliquis for anticoagulation management related to his chronic atrial fibrillation. He is currently on a DNR resuscitation status. Attempts were made to stabilize his bleeding and send back to the nursing facility with patient agreement to hospice care but he developed ventricular tachycardia necessitating Adenosine therapy while iun the Ed and are current with development of Atrial fibrillation with rapid ventricular rate resulted in his admission while on Cardizem drip for rate control management. Patient was not able to communicate verbally but through gesture did confirm his wish for hospice placement. His morbidities include chronic atrial fibrillation, HTN, HLD, COPD, GERD, and Hiatal Hernia. Past Medical History Cardiac Medical History: Reports: Atrial Fibrillation, Hyperlipidema, Hypertension Denies: Coronary Artery Disease, Myocardial Infarction Pulmonary Medical History: Reports: Chronic Obstructive Pulmonary Disease (COPD) Denies: Asthma, Bronchitis, Pneumonia Neurological Medical History: Denies: Seizures GI Medical History: Reports: Gastroesophageal Reflux Disease, Hiatal Hernia Musculoskeltal Medical History: Denies: Arthritis Psychiatric Medical History: Denies: Depression Hematology: Denies: Anemia Past Surgical History Past Surgical History: Reports: Vascular Surgery - left external carotic dissection w/ lysis & anastomosis, Other - Supraglottic mass resection and trach placement at [facility]. Social History Smoking Status: Unknown if Ever Smoked Frequency of Alcohol Use: None Hx Recreational Drug Use: No Drugs: None Hx Prescription Drug Abuse: No Family History Family History: Reviewed & Not Pertinent Parental Family History Reviewed: Yes Children Family History Reviewed: Yes Sibling(s) Family History Reviewed.: Yes Medication/Allergy Home Medications: Acetaminophen [Tylenol Extra Strength 500 mg Tablet] 500 mg PO Q6HP PRN 04/21/18 Apixaban [Eliquis 2.5 mg Tablet] 2.5 mg PO Q12 04/21/18 Bisacodyl [Dulcolax 10 mg Supp.rect] 10 mg TN DAILYP PRN 04/21/18 Buspirone HCl [Buspar 5 mg Tablet] 5 mg PO BID 04/21/18 Calcitriol [Rocaltrol 1 mcg/1 mL Oral Soln 15 mL] 0.3 mcg PO BID 04/21/18 Calcium Carbonate [Calcium] 500 mg PO TID 04/21/18 Ipratropium/Albuterol Sulfate [Duoneb 3 ml Ampul] 3 ml NEB RTQID 04/21/18 Levothyroxine Sodium [Synthroid 0.112 mg Tablet] 0.112 mg PO Q6AM 04/21/18 Mirtazapine [Remeron 15 mg Tablet] 15 mg PO QHS 04/21/18 Omeprazole 20 mg PO QHS 04/21/18 Oxycodone HCl [Oxy-Ir 5 mg Tablet] 5 mg PO Q8HP PRN 04/21/18 Scopolamine 1 each TD Q72HP PRN 04/21/18 Sennosides [Senna] 17.2 mg PO QHS 04/21/18 Allergies/Adverse Reactions: No Known Drug Allergies Allergy (Unknown, Verified 04/21/18 11:39) Review of Systems ROS unobtainable: Due to endotracheal tube Physical Exam Vital Signs: Temp Pulse Resp BP Pulse Ox 97.5 F 52 L 16 121/46 L 96 05/22/18 11:44 05/22/18 11:44 05/22/18 11:44 05/22/18 11:44 05/22/18 11:44 Intake & Output 05/21/18 05/22/18 05/23/18 06:59 06:59 06:59 Intake Total 2010 Balance 2010 Weight 68 kg General appearance: PRESENT: mild distress - from protruding enlarge tongue Head exam: PRESENT: atraumatic, normocephalic Eye exam: PRESENT: conjunctiva pink, EOMI, PERRLA. ABSENT: scleral icterus Ear exam: PRESENT: normal external ear exam Mouth exam: PRESENT: other - enlarge protruding tongue with old blood material on extruded part of the tongue. Neck exam: PRESENT: tracheostomy Respiratory exam: PRESENT: clear to auscultation perlita, decreased breath sounds - at lung bases Cardiovascular exam: PRESENT: RRR, +S1, +S2. ABSENT: diastolic murmur, systolic murmur Pulses: PRESENT: +1 pedal pulses bilateral Vascular exam: PRESENT: normal capillary refill. ABSENT: pallor GI/Abdominal exam: PRESENT: normal bowel sounds, soft. ABSENT: tenderness Rectal exam: PRESENT: deferred Extremities exam: ABSENT: pedal edema Musculoskeletal exam: PRESENT: deformity - related to multiple joints invol vement with arthritis. Neurological exam: PRESENT: alert, awake Psychiatric exam: ABSENT: agitated, anxious Skin exam: PRESENT: dry, warm Results Laboratory Results: 05/22/18 04:41 05/22/18 05:10 05/22/18 05/22/18 04:41 05:10 WBC 8.4 RBC 4.14 L Hgb 11.1 L Hct 34.3 L MCV 83 MCH 26.9 L MCHC 32.5 RDW 15.8 H Plt Count 392 Seg Neutrophils % 85.2 H Lymphocytes % 9.9 L Monocytes % 4.6 Eosinophils % 0.0 Basophils % 0.3 Absolute Neutrophils 7.1 Absolute Lymphocytes 0.8 Absolute Monocytes 0.4 Absolute Eosinophils 0.0 Absolute Basophils 0.0 Sodium 135.1 L Potassium 4.1 Chloride 100 Carbon Dioxide 21 L D Anion Gap 14 BUN 22 H Creatinine 0.61 Est GFR ( Amer) > 60 Est GFR (Non-Af Amer) > 60 Glucose 204 H Calcium 8.1 L Total Bilirubin 0.4 AST 66 H ALT 115 H Alkaline Phosphatase 218 H Total Protein 6.6 Albumin 3.2 L Assessment & Plan - Diagnosis (1) Oropharyngeal bleeding Is this a current diagnosis for this admission?: Yes Plan: In view of patient complex presenting situation and poor overall prognosis and agreement to hospice care placement, he will continue to hold his Eliquis therapy at this time. Monitor his bleeding complication and re-evaluate his risk-benefit for anticoagulation therapy. (2) Malignant neoplasm of larynx Is this a current diagnosis for this admission?: Yes Plan: Continue supportive care at this time. His overall prognosis remain poor. Patient did expressed agreement with hospice placement upon discharge. he remain on DNR status presently. (3) SVT (supraventricular tachycardia) Is this a current diagnosis for this admission?: Yes Plan: Currenttly resolved with admisnistartion of Adenosine as per ED physician report. maintain on current medication management. (4) Atrial fibrillation with rapid ventricular response Is this a current diagnosis for this admission?: Yes Plan: Continue IV Cardizem infusion therapy and monitor hemodynamic parameters. (5) COPD (chronic obstructive pulmonary disease) Qualifiers: COPD type: chronic bronchitis Chronic bronchitis type: simple Qualified Code(s): J41.0 - Simple chronic bronchitis Is this a current diagnosis for this admission?: Yes Plan: Continue on preadmission medication management. (6) Essential hypertension Is this a current diagnosis for this admission?: Yes Plan: Continue on preadmission medication management. (7) Hyperlipidemia Qualifiers: Hyperlipidemia type: pure hypercholesterolemia Qualified Code(s): E78.00 - Pure hypercholesterolemia, unspecified; E78.0 - Pure hypercholesterolemia Is this a current diagnosis for this admission?: Yes Plan: Continue on preadmission medication management. (8) GERD (gastroesophageal reflux disease) Qualifiers: Esophagitis presence: without esophagitis Qualified Code(s): K21.9 - Gastro-esophageal reflux disease without esophagitis Is this a current diagnosis for this admission?: Yes Plan: Continue on preadmission medication management. - Inpatient Certification Based on my medical assessment, after consideration of the patient's comorbidities, presenting symptoms, or acuity I expect that the services needed warrant INPATIENT care.: Yes I certify that my determination is in accordance with my understanding of Medicare's requirements for reasonable and necessary INPATIENT services [42 CFR 412.3e].: Yes Medical Necessity: Need Close Monitoring Due to Risk of Patient Decompensation, Need For IV Fluids, Need For Continuous Telemetry Monitoring, Need for Neurological Checks, Risk of Complication if Not Cared For in Hospital - Plan Summary Plan Summary: See covering admitting attending physician orders as per above outlined care plan.
[2018-05-22] MEDS ORDERED: BISACODYL 10 MG SUPP.RECT PR PRN (14:20)
[2018-05-22] MEDS ORDERED: SCOPOLAMINE HYDROBROMIDE 1.5 MG PATCH.TD72 TD PRN (14:20)
[2018-05-22] MEDS ORDERED: ACETAMINOPHEN 325 MG TABLET PO PRN (15:00)
[2018-05-22 15:41] LABS: MEAN CORPUSCULAR HEMOGLOBIN 26.6 pg (27.0-33.4); MEAN CORPUSCULAR HGB CONC 32.5 g/dL (32.0-36.0); MEAN CORPUSCULAR VOLUME 82 fl (80-97); PLATELET COUNT 361 10^3/uL (150-450); RED BLOOD COUNT 3.06 10^6/uL (4.35-5.55); RED CELL DISTRIBUTION WIDTH 16.2 % (11.5-14.0)
[2018-05-22 15:46] LABS: INTERNATIONAL RATION (INR) 1.16; PARTIAL THROMBOPLASTIN TIME 34.2 SEC (23.5-35.8); PROTHROMBIN TIME 15.4 SEC (11.4-15.4)
[2018-05-22 15:48] LABS: HEMOGLOBIN 8.1 g/dL (13.5-17.0); WHITE BLOOD COUNT 23.2 10^3/uL (4.0-10.5)
[2018-05-22] MEDS: IPRATROPIUM/ALBUTEROL 0.5-2.5 MG/3 ML AMPUL NEB SCH ×2 (15:48→19:34)
[2018-05-22 15:59] LABS: ALANINE AMINOTRANSFERASE 99 U/L (21-72); ALBUMIN 2.6 g/dL (3.5-5.0); ALKALINE PHOSPHATASE 185 U/L (38-126); ANION GAP 10 (5-19); ASPARTATE AMINO TRANSFERASE 42 U/L (17-59); BILIRUBIN,DIRECT 0.2 mg/dL (0.0-0.4); BILIRUBIN,TOTAL 0.3 mg/dL (0.2-1.3); BLOOD UREA NITROGEN 36 mg/dL (7-20); CALCIUM 7.7 mg/dL (8.4-10.2); CARBON DIOXIDE 21 mmol/L (22-30); CHLORIDE 107 mmol/L (98-107); GLUCOSE 112 mg/dL (75-110); POTASSIUM 4.6 mmol/L (3.6-5.0); SODIUM 137.7 mmol/L (137-145); TOTAL PROTEIN 5.4 g/dL (6.3-8.2)
[2018-05-22 16:01] LABS: ABSOLUTE LYMPHOCYTES# (MANUAL) 1.4 10^3/uL (0.5-4.7); ABSOLUTE MONOCYTES # (MANUAL) 0.9 10^3/uL (0.1-1.4); ABSOLUTE NEUTROPHILS# (MANUAL) 20.9 10^3/uL (1.7-8.2); BASOPHILS % (MANUAL) 0 % (0-2); EOSINOPHILS % (MANUAL) 0 % (0-6); HYPOCHROMASIA SLIGHT; LYMPHOCYTES % (MANUAL) 6 % (13-45); MONOCYTES % (MANUAL) 4 % (3-13); POLYCHROMASIA SLIGHT; SEGMENTED NEUTROPHILS % (MAN) 90 % (42-78); TOTAL CELLS COUNTED 100
[2018-05-22 16:02] LABS: ANISOCYTOSIS 1+; OVALOCYTES 1+; PLATELET COMMENT ADEQUATE; POIKILOCYTOSIS 1+
[2018-05-22] MEDS ORDERED: PIPERACILLIN/TAZOBACTAM 3.375 GM VIAL IV PRN (17:56)
[2018-05-22] MEDS ORDERED: (PENDING PHARMACY ID) (Buspirone Hcl [Buspar 5 Mg Tablet] 5 MG) PEG SCH (18:00)
--- NOTE | 2018-05-22 18:19 | RADIOLOGY REPORT (SQ) ---
EXAM DESCRIPTION: CHEST SINGLE VIEW COMPLETED DATE/TIME: 05/22/2018 6:08 pm REASON FOR STUDY: Aspiration COMPARISON: 05/21/2018 EXAM PARAMETERS: NUMBER OF VIEWS: One view. TECHNIQUE: Single frontal radiographic view of the chest acquired. RADIATION DOSE: NA LIMITATIONS: None. FINDINGS: LUNGS AND PLEURA: No opacities, masses or pneumothorax. No pleural effusion. MEDIASTINUM AND HILAR STRUCTURES: No masses. Contour normal. HEART AND VASCULAR STRUCTURES: Heart normal in size. Normal vasculature. BONES: No acute findings. HARDWARE: None in the chest. OTHER: Right chest port catheter. IMPRESSION: No acute abnormality of the lungs in AP projection. No focal airspace opacity. TECHNICAL DOCUMENTATION: JOB ID: [id number] [employer]- All Rights Reserved Reading location - IP/workstation name: [email or web address]
[2018-05-22] MEDS ORDERED: PIPERACILLIN/TAZOBACTAM 3.375 GM VIAL IV ONE (18:23)
[2018-05-22] MEDS ORDERED: CALCITRIOL 1 MCG/ML ORAL SOLN 15 ML ONE (18:23)
[2018-05-22] MEDS: CALCIUM CARBONATE 500 MG TABLET PEG SCH (18:48)
[2018-05-22] MEDS: CALCITRIOL 1 MCG/ML ORAL SOLN 15 ML PEG SCH (18:48)
[2018-05-22] MEDS: PIPERACILLIN SODIUM/TAZOBACTAM 3.375 GM in NORMAL SALINE 100 ML IV SCH (18:51)
[2018-05-22] MEDS ORDERED: (PENDING PHARMACY ID) (Sennosides [Senna] 17.2 MG) PEG SCH (22:00)
[2018-05-22] MEDS: BUSPIRONE HCL 10 MG TABLET PEG SCH (23:12)
[2018-05-22] MEDS: MIRTAZAPINE 15 MG TABLET PEG SCH (23:13)
[2018-05-22] MEDS: OXYCODONE HCL IR 5 MG TABLET PEG PRN (23:30)
[2018-05-23] MEDS: PIPERACILLIN SODIUM/TAZOBACTAM 3.375 GM in NORMAL SALINE 100 ML IV SCH ×4 (00:38→19:59)
[2018-05-23] MEDS: LEVOTHYROXINE SODIUM 0.112 MG TABLET PEG SCH (05:20)
[2018-05-23] MEDS: NORMAL SALINE 1000 ML 1,000 ML IV PRN ×2 (05:21→19:59)
[2018-05-23] MEDS: OXYCODONE HCL IR 5 MG TABLET PEG PRN ×2 (06:44→23:26)
[2018-05-23] MEDS: IPRATROPIUM/ALBUTEROL 0.5-2.5 MG/3 ML AMPUL NEB SCH ×4 (07:50→19:23)
[2018-05-23] MEDS: CALCITRIOL 1 MCG/ML ORAL SOLN 15 ML PEG SCH ×2 (09:49→19:39)
[2018-05-23] MEDS: CALCIUM CARBONATE 500 MG TABLET PEG SCH ×3 (09:49→19:39)
[2018-05-23] MEDS: BUSPIRONE HCL 10 MG TABLET PEG SCH ×2 (09:49→23:26)
--- NOTE | 2018-05-23 12:12 | PDOC PROGRESS REPORT ---
Subjective Progress Note for:: 05/23/18 Subjective:: Remain nonverbal due to his protruding tongue and tracheostomy from Laryngeal cancer. Less bleeding from the tongue. No fever. No chest pain. Tolerating tuber feeding. Reason For Visit: RECCURENT LARYNGEL CANCER BLEEDING;CHRONIC A FIB Physical Exam Vital Signs: Temp Pulse Resp BP Pulse Ox 97.6 F 79 16 97/45 L 94 05/23/18 07:20 05/23/18 07:50 05/23/18 07:50 05/23/18 07:20 05/23/18 07:50 Intake & Output 05/22/18 05/23/18 05/24/18 06:59 06:59 06:59 Intake Total 4458 100 Output Total 425 Balance 4033 100 Weight 71.3 kg Physical Exam: General appearance: PRESENT: No acute distress, protruding enlarge tongue Head exam: PRESENT: atraumatic, normocephalic Eye exam: PRESENT: conjunctiva pink, EOMI, PERRLA. ABSENT: pallor, scleral icterus Ear exam: PRESENT: normal external ear exam Mouth exam: PRESENT: other - enlarge protruding tongue with old blood material on extruded part of the tongue. Neck exam: PRESENT: tracheostomy Respiratory exam: PRESENT: clear to auscultation perlita, decreased breath sounds - at lung bases Cardiovascular exam: PRESENT: RRR, +S1, +S2. ABSENT: diastolic murmur, systolic murmur GI/Abdominal exam: PRESENT: normal bowel sounds, soft. ABSENT: tenderness Extremities exam: ABSENT: pedal edema Musculoskeletal exam: PRESENT: deformity - related to multiple joints involve ment with arthritis. Neurological exam: PRESENT: alert, awake Psychiatric exam: ABSENT: agitated, anxious Skin exam: PRESENT: dry, warm Results Laboratory Results: 05/22/18 15:13 05/22/18 15:13 05/22/18 05/22/18 15:13 15:13 WBC 23.2 H D RBC 3.06 L Hgb 8.1 L D Hct 25.0 L MCV 82 MCH 26.6 L MCHC 32.5 RDW 16.2 H Plt Count 361 Seg Neutrophils % Not Reportable Lymphocytes % Not Reportable Monocytes % Not Reportable Eosinophils % Not Reportable Basophils % Not Reportable Absolute Neutrophils Not Reportable Absolute Lymphocytes Not Reportable Absolute Monocytes Not Reportable Absolute Eosinophils Not Reportable Absolute Basophils Not Reportable Sodium 137.7 Potassium 4.6 Chloride 107 Carbon Dioxide 21 L Anion Gap 10 BUN 36 H Creatinine 0.50 L Est GFR ( Amer) > 60 Est GFR (Non-Af Amer) > 60 Glucose 112 H Calcium 7.7 L Total Bilirubin 0.3 AST 42 ALT 99 H Alkaline Phosphatase 185 H Total Protein 5.4 L Albumin 2.6 L Impressions: Chest X-Ray 05/22/18 00:00 IMPRESSION: No acute abnormality of the lungs in AP projection. No focal airspace opacity. Assessment & Plan - Diagnosis (1) Oropharyngeal bleeding Is this a current diagnosis for this admission?: Yes (2) Malignant neoplasm of larynx Is this a current diagnosis for this admission?: Yes (3) SVT (supraventricular tachycardia) Is this a current diagnosis for this admission?: Yes (4) Atrial fibrillation with rapid ventricular response Is this a current diagnosis for this admission?: Yes (5) COPD (chronic obstructive pulmonary disease) Qualifiers: COPD type: chronic bronchitis Chronic bronchitis type: simple Qualified Code(s): J41.0 - Simple chronic bronchitis Is this a current diagnosis for this admission?: Yes (6) Essential hypertension Is this a current diagnosis for this admission?: Yes (7) Hyperlipidemia Qualifiers: Hyperlipidemia type: pure hypercholesterolemia Qualified Code(s): E78.00 - Pure hypercholesterolemia, unspecified; E78.0 - Pure hypercholesterolemia Is this a current diagnosis for this admission?: Yes (8) GERD (gastroesophageal reflux disease) Qualifiers: Esophagitis presence: without esophagitis Qualified Code(s): K21.9 - Gastro-esophageal reflux disease without esophagitis Is this a current diagnosis for this admission?: Yes - Time Time Spent with patient: 25-34 minutes Medications reviewed and adjusted accordingly: Yes Anticipated discharge: SNF Within: Other - Inpatient Certification Based on my medical assessment, after consideration of the patient's comorbidities, presenting symptoms, or acuity I expect that the services needed warrant INPATIENT care.: Yes I certify that my determination is in accordance with my understanding of Medicare's requirements for reasonable and necessary INPATIENT services [42 CFR 412.3e].: Yes Medical Necessity: Need Close Monitoring Due to Risk of Patient Decompensation, Need For IV Fluids, Need For Continuous Telemetry Monitoring, Need for IV Antibiotics, Risk of Complication if Not Cared For in Hospital Post Hospital Care: D/C or Transfer Summary - Plan Summary Plan Summary: Continue IV Zosyn coverage. He is currently off Cardizem infusion. Overall p rognosis remain poor due to his morbidities. He remain on DNR status. Obtain CBC with diff and CMP.
[2018-05-23 14:24] LABS: ALANINE AMINOTRANSFERASE 81 U/L (21-72); ALBUMIN 2.3 g/dL (3.5-5.0); ALKALINE PHOSPHATASE 150 U/L (38-126); ASPARTATE AMINO TRANSFERASE 35 U/L (17-59); BILIRUBIN,DIRECT 0.2 mg/dL (0.0-0.4); BILIRUBIN,TOTAL 0.3 mg/dL (0.2-1.3); BLOOD UREA NITROGEN 17 mg/dL (7-20); CALCIUM 7.7 mg/dL (8.4-10.2); GLUCOSE 108 mg/dL (75-110); POTASSIUM 3.9 mmol/L (3.6-5.0); TOTAL PROTEIN 4.9 g/dL (6.3-8.2)
[2018-05-23 14:29] LABS: ANION GAP 5 (5-19); CARBON DIOXIDE 25 mmol/L (22-30); CHLORIDE 110 mmol/L (98-107); SODIUM 139.5 mmol/L (137-145)
[2018-05-23 14:42] LABS: ABSOLUTE BASOPHILS # (AUTO) 0.1 10^3/uL (0.0-0.2); ABSOLUTE LYMPHOCYTES (AUTO) 1.2 10^3/uL (0.5-4.7); ABSOLUTE MONOCYTES (AUTO) 0.8 10^3/uL (0.1-1.4); ABSOLUTE NEUT (AUTO) 10.1 10^3/uL (1.7-8.2); BASOPHILS % (AUTO) 0.4 % (0-2); EOSINOPHILS % (AUTO) 0.2 % (0-6); HEMATOCRIT 21.1 % (37.9-51.0); LYMPHOCYTES % (AUTO) 9.5 % (13-45); MEAN CORPUSCULAR HEMOGLOBIN 26.7 pg (27.0-33.4); MEAN CORPUSCULAR HGB CONC 32.9 g/dL (32.0-36.0); MEAN CORPUSCULAR VOLUME 81 fl (80-97); MONOCYTES % (AUTO) 6.8 % (3-13); PLATELET COUNT 309 10^3/uL (150-450); RED CELL DISTRIBUTION WIDTH 16.3 % (11.5-14.0); SEGMENTED NEUTROPHILS % (AUTO) 83.1 % (42-78); TOTAL CELLS COUNTED % (AUTO) 100 %; WHITE BLOOD COUNT 12.2 10^3/uL (4.0-10.5)
[2018-05-23 14:51] LABS: HEMOGLOBIN 6.9 g/dL (13.5-17.0)
[2018-05-23] MEDS: MIRTAZAPINE 15 MG TABLET PEG SCH (23:27)
[2018-05-24] MEDS: PIPERACILLIN SODIUM/TAZOBACTAM 3.375 GM in NORMAL SALINE 100 ML IV SCH ×4 (00:54→17:38)
[2018-05-24 05:33] LABS: HEMATOCRIT 27.6 % (37.9-51.0); MEAN CORPUSCULAR HEMOGLOBIN 28.1 pg (27.0-33.4); MEAN CORPUSCULAR VOLUME 83 fl (80-97); PLATELET COUNT 283 10^3/uL (150-450); RED BLOOD COUNT 3.34 10^6/uL (4.35-5.55); RED CELL DISTRIBUTION WIDTH 16.2 % (11.5-14.0); WHITE BLOOD COUNT 12.2 10^3/uL (4.0-10.5)
[2018-05-24 05:35] LABS: HEMOGLOBIN 9.4 g/dL (13.5-17.0)
[2018-05-24] MEDS: LEVOTHYROXINE SODIUM 0.112 MG TABLET PEG SCH (05:49)
[2018-05-24] MEDS: NORMAL SALINE 1000 ML 1,000 ML IV PRN ×2 (06:21→17:57)
[2018-05-24] MEDS: IPRATROPIUM/ALBUTEROL 0.5-2.5 MG/3 ML AMPUL NEB SCH ×4 (08:45→19:31)
[2018-05-24] MEDS: CALCIUM CARBONATE 500 MG TABLET PEG SCH ×3 (10:23→17:35)
[2018-05-24] MEDS: BUSPIRONE HCL 10 MG TABLET PEG SCH ×2 (10:24→23:21)
[2018-05-24] MEDS: CALCITRIOL 1 MCG/ML ORAL SOLN 15 ML PEG SCH ×2 (10:24→17:38)
--- NOTE | 2018-05-24 19:39 | PDOC PROGRESS REPORT ---
Subjective Progress Note for:: 05/24/18 Subjective:: Patient was seen by the bedside, he has terminal laryngeal cancer, there is associated huge tumor underneath his tongue protruding the tongue and the mouth is literally open with the tumor occupying the orifice of the mouth. Patient is agreeable to hospice, is the best option at this time, consultation will be requested from discharge planning to arrange hospice home for this patient. I will increase the dosing of the pain medication, the strategy of care for this patient at this time should be comfort Reason For Visit: RECCURENT LARYNGEL CANCER BLEEDING;CHRONIC A FIB Physical Exam Vital Signs: Temp Pulse Resp BP Pulse Ox 98.6 F 74 14 143/66 H 98 05/24/18 15:13 05/24/18 15:13 05/24/18 15:13 05/24/18 15:13 05/24/18 15:13 Intake & Output 05/23/18 05/24/18 05/25/18 06:59 06:59 06:59 Intake Total 4458 3374 1930 Output Total 425 575 725 Balance 4033 2799 1205 Weight 71.3 kg 65 kg Eye exam: PRESENT: PERRLA Mouth exam: PRESENT: other - There is a large tumor protruding out of the mouth Respiratory exam: PRESENT: rhonchi Cardiovascular exam: PRESENT: irregular rhythm, +S1, +S2 Neurological exam: PRESENT: alert Results Laboratory Results: 05/24/18 04:28 05/23/18 13:28 05/23/18 05/24/18 16:09 04:28 WBC 12.2 H RBC 3.34 L Hgb 9.4 L D Hct 27.6 L MCV 83 MCH 28.1 MCHC 34.0 RDW 16.2 H Plt Count 283 Blood Type B POSITIVE Antibody Screen NEGATIVE Impressions: Chest X-Ray 05/22/18 00:00 IMPRESSION: No acute abnormality of the lungs in AP projection. No focal airspace opacity. Assessment & Plan - Diagnosis (1) Laryngeal cancer Is this a current diagnosis for this admission?: Yes Plan: Poor prognosis, patient DNR, consult social sciences instructor for hospice placement, increase Dilaudid for pain (2) Atrial fibrillation with rapid ventricular response Is this a current diagnosis for this admission?: Yes
[2018-05-24] MEDS: SENNOSIDES/DOCUSATE 8.6-50 MG 1 EACH TABLET PEG SCH (23:20)
[2018-05-24] MEDS: MIRTAZAPINE 15 MG TABLET PEG SCH (23:21)
[2018-05-24] MEDS: HYDROMORPHONE HCL INJ/PF 2 MG/ML AMPULE IV PRN (23:21)
[2018-05-25] MEDS: HYDROMORPHONE HCL INJ/PF 2 MG/ML AMPULE IV PRN ×5 (03:07→22:50)
[2018-05-25] MEDS: LEVOTHYROXINE SODIUM 0.112 MG TABLET PEG SCH (05:18)
[2018-05-25] MEDS: NORMAL SALINE 1000 ML 1,000 ML IV PRN ×2 (05:33→16:15)
[2018-05-25] MEDS: IPRATROPIUM/ALBUTEROL 0.5-2.5 MG/3 ML AMPUL NEB SCH ×4 (08:35→20:12)
[2018-05-25] MEDS: BUSPIRONE HCL 10 MG TABLET PEG SCH ×2 (10:37→21:21)
[2018-05-25] MEDS: CALCIUM CARBONATE 500 MG TABLET PEG SCH ×3 (10:37→17:13)
[2018-05-25] MEDS: CALCITRIOL 1 MCG/ML ORAL SOLN 15 ML PEG SCH ×2 (10:41→17:13)
[2018-05-25] MEDS: OXYCODONE HCL IR 5 MG TABLET PEG PRN (17:16)
--- NOTE | 2018-05-25 20:07 | PDOC PROGRESS REPORT ---
Subjective Progress Note for:: 05/25/18 Subjective:: Patient was seen by the bedside, patient's condition is very poor he has large protruding tumor out of his mouth with pressure pain around his neck, patient is in tremendous discomfort, he will be started on TOOL SETTER with basal hydromorphone infusion. There is no POA to talk with this patient desires comfort care measures. Patient is not able to consent to comfort care because of his altered mentation and the fact that he is so much pain he is hardly able to speak Reason For Visit: RECCURENT LARYNGEL CANCER BLEEDING;CHRONIC A FIB Physical Exam Vital Signs: Temp Pulse Resp BP Pulse Ox 97.9 F 81 16 146/88 H 100 05/25/18 15:50 05/25/18 19:00 05/25/18 16:26 05/25/18 15:50 05/25/18 16:26 Intake & Output 05/24/18 05/25/18 05/26/18 06:59 06:59 06:59 Intake Total 3724 3080 1547 Output Total 575 725 975 Balance 3149 2355 572 Weight 65 kg 65 kg General appearance: PRESENT: mild distress Eye exam: PRESENT: other - LARGE TUMOR ORIGINATING FROM THE MOUTH Neck exam: PRESENT: tracheostomy Respiratory exam: PRESENT: decreased breath sounds Cardiovascular exam: PRESENT: +S1, +S2 Neurological exam: PRESENT: alert Results Laboratory Results: 05/24/18 04:28 05/23/18 13:28 Impressions: Chest X-Ray 05/22/18 00:00 IMPRESSION: No acute abnormality of the lungs in AP projection. No focal airspace opacity. Assessment & Plan - Diagnosis (1) Laryngeal cancer Is this a current diagnosis for this admission?: Yes Plan: Patient to be started on TOOL SETTER with basal hydromorphine infusion (2) Atrial fibrillation with rapid ventricular response Is this a current diagnosis for this admission?: Yes (3) COPD (chronic obstructive pulmonary disease) Qualifiers: COPD type: chronic bronchitis Chronic bronchitis type: simple Qualified Code(s): J41.0 - Simple chronic bronchitis Is this a current diagnosis for this admission?: Yes
[2018-05-25] MEDS: SENNOSIDES/DOCUSATE 8.6-50 MG 1 EACH TABLET PEG SCH (21:21)
[2018-05-25] MEDS: MIRTAZAPINE 15 MG TABLET PEG SCH (21:21)
[2018-05-25] MEDS: HYDROMORPHONE HCL 30 MG/60 ML RTUINJ IV PRN (23:23)
[2018-05-26] MEDS: NORMAL SALINE 1000 ML 1,000 ML IV PRN ×2 (01:53→14:04)
[2018-05-26] MEDS: LEVOTHYROXINE SODIUM 0.112 MG TABLET PEG SCH (05:04)
[2018-05-26] MEDS: IPRATROPIUM/ALBUTEROL 0.5-2.5 MG/3 ML AMPUL NEB SCH ×3 (08:47→17:54)
[2018-05-26] MEDS: BUSPIRONE HCL 10 MG TABLET PEG SCH (09:14)
[2018-05-26] MEDS: CALCIUM CARBONATE 500 MG TABLET PEG SCH ×2 (09:14→14:04)
[2018-05-26] MEDS: CALCITRIOL 1 MCG/ML ORAL SOLN 15 ML PEG SCH (09:14)
[2018-05-26] MEDS: HYDROMORPHONE HCL INJ/PF 2 MG/ML AMPULE IV PRN (15:35)
--- NOTE | 2018-05-26 16:57 | PDOC PROGRESS REPORT ---
Subjective Progress Note for:: 05/26/18 Subjective:: Patient's condition is very poor, he was seen by the bedside, the pain is intolerable, discharge planning is looking for inpatient hospice facility for this patient, the care is being transitioned to comfort care. Reason For Visit: RECCURENT LARYNGEL CANCER BLEEDING;CHRONIC A FIB Physical Exam Vital Signs: Temp Pulse Resp BP Pulse Ox 97.4 F 96 16 132/56 H 100 05/26/18 11:16 05/26/18 14:00 05/26/18 16:00 05/26/18 11:16 05/26/18 16:00 Intake & Output 05/25/18 05/26/18 05/27/18 06:59 06:59 06:59 Intake Total 3080 2510 1013 Output Total 725 1025 300 Balance 2355 1485 713 Weight 65 kg 72.6 kg Eye exam: PRESENT: PERRLA Respiratory exam: PRESENT: decreased breath sounds Cardiovascular exam: PRESENT: +S1, +S2 GI/Abdominal exam: PRESENT: soft Neurological exam: PRESENT: alert Results Laboratory Results: 05/24/18 04:28 05/23/18 13:28 Impressions: Chest X-Ray 05/22/18 00:00 IMPRESSION: No acute abnormality of the lungs in AP projection. No focal airspace opacity. Assessment & Plan - Diagnosis (1) Laryngeal cancer Is this a current diagnosis for this admission?: Yes Plan: Patient with terminal cancer, will increase the morphine basal rate to 1 mg/h (2) Atrial fibrillation with rapid ventricular response Is this a current diagnosis for this admission?: Yes (3) COPD (chronic obstructive pulmonary disease) Qualifiers: COPD type: chronic bronchitis Chronic bronchitis type: simple Qualified Code(s): J41.0 - Simple chronic bronchitis Is this a current diagnosis for this admission?: Yes
[2018-05-27] MEDS: HYDROMORPHONE HCL 30 MG/60 ML RTUINJ IV PRN (13:21)
--- NOTE | 2018-05-27 21:02 | PDOC PROGRESS REPORT ---
Subjective Progress Note for:: 05/27/18 Subjective:: Patient seen by the bedside, on IV Dilaudid therapy Reason For Visit: RECCURENT LARYNGEL CANCER BLEEDING;CHRONIC A FIB Physical Exam Vital Signs: Temp Pulse Resp BP Pulse Ox 98.7 F 98 14 124/48 L 98 05/27/18 11:17 05/27/18 19:00 05/27/18 18:00 05/27/18 11:17 05/27/18 19:39 Intake & Output 05/26/18 05/27/18 05/28/18 06:59 06:59 06:59 Intake Total 2510 1626 44 Output Total 1025 525 Balance 1485 1101 44 Weight 72.6 kg 69.5 kg General appearance: PRESENT: no acute distress Eye exam: PRESENT: PERRLA Respiratory exam: PRESENT: decreased breath sounds Cardiovascular exam: PRESENT: +S1, +S2 Results Laboratory Results: 05/24/18 04:28 05/23/18 13:28 05/22/18 17:30 Blood Blood Culture - Final NO GROWTH IN 5 DAYS 05/22/18 17:55 Blood Blood Culture - Final NO GROWTH IN 5 DAYS Impressions: Chest X-Ray 05/22/18 00:00 IMPRESSION: No acute abnormality of the lungs in AP projection. No focal airspace opacity. Assessment & Plan - Diagnosis (1) Laryngeal cancer Is this a current diagnosis for this admission?: Yes (2) Atrial fibrillation with rapid ventricular response Is this a current diagnosis for this admission?: Yes (3) COPD (chronic obstructive pulmonary disease) Qualifiers: COPD type: chronic bronchitis Chronic bronchitis type: simple Qualified Code(s): J41.0 - Simple chronic bronchitis Is this a current diagnosis for this admission?: Yes
[2018-05-28] MEDS: HYDROMORPHONE HCL INJ/PF 2 MG/ML AMPULE IV PRN (09:06)
[2018-05-28] MEDS: HYDROMORPHONE HCL 30 MG/60 ML RTUINJ IV PRN (19:32)
[2018-05-28] MEDS ORDERED: LORAZEPAM INJ 2 MG/1 ML VIAL ONE (20:27)
--- NOTE | 2018-05-28 21:44 | PDOC PROGRESS REPORT ---
Subjective Progress Note for:: 05/28/18 Subjective:: Patient seen by the bedside, I had a long talk with the POA today about patient's condition and prognosis, patient's POA is in agreement with comfort care measures Reason For Visit: RECCURENT LARYNGEL CANCER BLEEDING;CHRONIC A FIB Physical Exam Vital Signs: Temp Pulse Resp BP Pulse Ox 97.6 F 88 18 142/58 H 100 05/28/18 19:38 05/28/18 19:38 05/28/18 19:38 05/28/18 19:38 05/28/18 19:38 Intake & Output 05/27/18 05/28/18 05/29/18 06:59 06:59 06:59 Intake Total 1626 44 60 Output Total 525 Balance 1101 44 60 Weight 69.5 kg 67 kg Results Laboratory Results: 05/24/18 04:28 05/23/18 13:28 05/22/18 17:30 Blood Blood Culture - Final NO GROWTH IN 5 DAYS 05/22/18 17:55 Blood Blood Culture - Final NO GROWTH IN 5 DAYS Impressions: Chest X-Ray 05/22/18 00:00 IMPRESSION: No acute abnormality of the lungs in AP projection. No focal airspace opacity. Assessment & Plan - Diagnosis (1) Laryngeal cancer Is this a current diagnosis for this admission?: Yes (2) Atrial fibrillation with rapid ventricular response Is this a current diagnosis for this admission?: Yes (3) COPD (chronic obstructive pulmonary disease) Qualifiers: COPD type: chronic bronchitis Chronic bronchitis type: simple Qualified Code(s): J41.0 - Simple chronic bronchitis Is this a current diagnosis for this admission?: Yes
[2018-05-29] MEDS: LORAZEPAM INJ 2 MG/1 ML VIAL IV PRN ×3 (05:13→22:24)
[2018-05-29] MEDS: HYDROMORPHONE HCL 30 MG/60 ML RTUINJ IV PRN (17:17)
--- NOTE | 2018-05-29 18:00 | PDOC PROGRESS REPORT ---
Subjective Progress Note for:: 05/29/18 Subjective:: Patient seen by the bedside, on comfort care, pain not well controlled Reason For Visit: RECCURENT LARYNGEL CANCER BLEEDING;CHRONIC A FIB Physical Exam Vital Signs: Temp Pulse Resp BP Pulse Ox 97.6 F 81 14 95/47 L 95 05/28/18 19:38 05/29/18 08:16 05/29/18 08:16 05/29/18 08:16 05/29/18 12:00 Intake & Output 05/28/18 05/29/18 05/30/18 06:59 06:59 06:59 Intake Total 44 60 60 Balance 44 60 60 Weight 67 kg 68.5 kg Results Laboratory Results: 05/24/18 04:28 05/23/18 13:28 Impressions: Chest X-Ray 05/22/18 00:00 IMPRESSION: No acute abnormality of the lungs in AP projection. No focal airspace opacity. Assessment & Plan - Diagnosis (1) Laryngeal cancer Is this a current diagnosis for this admission?: Yes Plan: Increase Dilaudid to 4 mg/h (2) Atrial fibrillation with rapid ventricular response Is this a current diagnosis for this admission?: Yes (3) COPD (chronic obstructive pulmonary disease) Qualifiers: COPD type: chronic bronchitis Chronic bronchitis type: simple Qualified Code(s): J41.0 - Simple chronic bronchitis Is this a current diagnosis for this admission?: Yes
[2018-05-30] MEDS: HYDROMORPHONE HCL 30 MG/60 ML RTUINJ IV PRN ×4 (01:02→23:56)
[2018-05-30] MEDS: LORAZEPAM INJ 2 MG/1 ML VIAL IV PRN ×7 (03:21→18:48)
[2018-05-30] MEDS: HYDROMORPHONE HCL INJ/PF 2 MG/ML AMPULE IV PRN ×4 (13:02→22:09)
--- NOTE | 2018-05-30 14:32 | PDOC PROGRESS REPORT ---
Subjective Progress Note for:: 05/30/18 Subjective:: Patient sedated, comfort care Reason For Visit: RECCURENT LARYNGEL CANCER BLEEDING;CHRONIC A FIB Physical Exam Vital Signs: Temp Pulse Resp BP Pulse Ox 98.8 F 33 L 12 92/55 L 92 05/30/18 03:35 05/30/18 03:35 05/30/18 08:37 05/30/18 03:35 05/30/18 08:37 Intake & Output 05/29/18 05/30/18 05/31/18 06:59 06:59 06:59 Intake Total 60 120 60 Output Total 0 Balance 60 120 60 Weight 68.5 kg 70.9 kg Results Laboratory Results: 05/24/18 04:28 05/23/18 13:28 Impressions: Chest X-Ray 05/22/18 00:00 IMPRESSION: No acute abnormality of the lungs in AP projection. No focal a irspace opacity. Assessment & Plan - Diagnosis (1) Laryngeal cancer Is this a current diagnosis for this admission?: Yes Plan: Continue infusion with Dilaudid (2) Atrial fibrillation with rapid ventricular response Is this a current diagnosis for this admission?: Yes (3) COPD (chronic obstructive pulmonary disease) Qualifiers: COPD type: chronic bronchitis Chronic bronchitis type: simple Qualified Code(s): J41.0 - Simple chronic bronchitis Is this a current diagnosis for this admission?: Yes
[2018-05-30] MEDS: NORMAL SALINE 1000 ML 1,000 ML IV PRN (22:39)
[2018-05-31] MEDS: HYDROMORPHONE HCL 30 MG/60 ML RTUINJ IV PRN ×3 (07:14→22:34)
[2018-05-31] MEDS: LORAZEPAM INJ 2 MG/1 ML VIAL IV PRN (18:29)
--- NOTE | 2018-05-31 20:04 | PDOC PROGRESS REPORT ---
Subjective Progress Note for:: 05/31/18 Subjective:: Patient sedated, comfort care Reason For Visit: RECCURENT LARYNGEL CANCER BLEEDING;CHRONIC A FIB Physical Exam Vital Signs: Temp Pulse Resp BP Pulse Ox 97.4 F 85 10 L 105/69 93 05/31/18 12:18 05/31/18 12:18 05/31/18 18:00 05/31/18 12:18 05/31/18 18:00 Intake & Output 05/30/18 05/31/18 06/01/18 06:59 06:59 06:59 Intake Total 120 180 118 Output Total 0 Balance 120 180 118 Weight 70.9 kg 68.6 kg Results Laboratory Results: 05/24/18 04:28 05/23/18 13:28 Impressions: Chest X-Ray 05/22/18 00:00 IMPRESSION: No acute abnormality of the lungs in AP projection. No focal airspace opacity. Assessment & Plan - Diagnosis (1) Laryngeal cancer Is this a current diagnosis for this admission?: Yes (2) Atrial fibrillation with rapid ventricular response Is this a current diagnosis for this admission?: Yes (3) COPD (chronic obstructive pulmonary disease) Qualifiers: COPD type: chronic bronchitis Chronic bronchitis type: simple Qualified Code(s): J41.0 - Simple chronic bronchitis Is this a current diagnosis for this admission?: Yes
[2018-05-31] MEDS: NORMAL SALINE 1000 ML 1,000 ML IV PRN (22:08)
[2018-06-01] MEDS: HYDROMORPHONE HCL 30 MG/60 ML RTUINJ IV PRN ×3 (05:53→21:01)
[2018-06-01] MEDS ORDERED: HYDROMORPHONE HCL 30 MG/60 ML RTUINJ IV ONE (20:38)
--- NOTE | 2018-06-01 20:56 | PDOC PROGRESS REPORT ---
Subjective Progress Note for:: 06/01/18 Subjective:: Patient sedated, comfort care Reason For Visit: RECCURENT LARYNGEL CANCER BLEEDING;CHRONIC A FIB Physical Exam Vital Signs: Temp Pulse Resp BP Pulse Ox 97.2 F 94 5 L 128/70 H 84 L 06/01/18 07:48 06/01/18 07:48 06/01/18 20:00 06/01/18 07:48 06/01/18 20:00 Intake & Output 05/31/18 06/01/18 06/02/18 06:59 06:59 06:59 Intake Total 180 941 60 Output Total 0 Balance 180 941 60 Weight 68.6 kg 68.5 kg Results Laboratory Results: 05/24/18 04:28 05/23/18 13:28 Impressions: Chest X-Ray 05/22/18 00:00 IMPRESSION: No acute abnormality of the lungs in AP projection. No focal airspace opacity. Assessment & Plan - Diagnosis (1) Laryngeal cancer Is this a current diagnosis for this admission?: Yes (2) Atrial fibrillation with rapid ventricular response Is this a current diagnosis for this admission?: Yes (3) COPD (chronic obstructive pulmonary disease) Qualifiers: COPD type: chronic bronchitis Chronic bronchitis type: simple Qualified Code(s): J41.0 - Simple chronic bronchitis Is this a current diagnosis for this admission?: Yes
[2018-06-02] MEDS: HYDROMORPHONE HCL 30 MG/60 ML RTUINJ IV PRN ×4 (04:34→23:34)
[2018-06-02] MEDS: NORMAL SALINE 1000 ML 1,000 ML IV PRN (05:18)
[2018-06-02] MEDS: LORAZEPAM INJ 2 MG/1 ML VIAL IV PRN ×10 (07:00→23:23)
--- NOTE | 2018-06-02 19:54 | PDOC PROGRESS REPORT ---
Subjective Progress Note for:: 06/02/18 Subjective:: Patient sedated, comfort care Reason For Visit: RECCURENT LARYNGEL CANCER BLEEDING;CHRONIC A FIB Physical Exam Vital Signs: Temp Pulse Resp BP Pulse Ox 97.2 F 105 H 6 L 132/74 H 82 L 06/01/18 07:48 06/02/18 07:33 06/02/18 18:15 06/02/18 07:33 06/02/18 18:15 Intake & Output 06/01/18 06/02/18 06/03/18 06:59 06:59 06:59 Intake Total 941 1080 120 Output Total 0 Balance 941 1080 120 Weight 68.5 kg Results Laboratory Results: 05/24/18 04:28 05/23/18 13:28 Impressions: Chest X-Ray 05/22/18 00:00 IMPRESSION: No acute abnormality of the lungs in AP projection. No focal airspace opacity. Assessment & Plan - Diagnosis (1) Laryngeal cancer Is this a current diagnosis for this admission?: Yes (2) Atrial fibrillation with rapid ventricular response Is this a current diagnosis for this admission?: Yes (3) COPD (chronic obstructive pulmonary disease) Qualifiers: COPD type: chronic bronchitis Chronic bronchitis type: simple Qualified Code(s): J41.0 - Simple chronic bronchitis Is this a current diagnosis for this admission?: Yes
[2018-06-03] MEDS: LORAZEPAM INJ 2 MG/1 ML VIAL IV PRN ×11 (00:47→23:48)
[2018-06-03] MEDS: HYDROMORPHONE HCL 30 MG/60 ML RTUINJ IV PRN ×5 (03:48→22:39)
[2018-06-03] MEDS: NORMAL SALINE 1000 ML 1,000 ML IV PRN (05:00)
--- NOTE | 2018-06-03 19:23 | PDOC PROGRESS REPORT ---
Subjective Progress Note for:: 06/03/18 Subjective:: Patient sedated, comfort care Reason For Visit: RECCURENT LARYNGEL CANCER BLEEDING;CHRONIC A FIB Physical Exam Vital Signs: Temp Pulse Resp BP Pulse Ox 97.3 F 87 3 L 126/77 H 76 L 06/03/18 08:26 06/03/18 08:26 06/03/18 17:16 06/03/18 08:26 06/03/18 17:16 Intake & Output 06/02/18 06/03/18 06/04/18 06:59 06:59 06:59 Intake Total 1080 886.74 180 Output Total 0 Balance 1080 886.74 180 Weight 69.4 kg Results Laboratory Results: 05/24/18 04:28 05/23/18 13:28 Impressions: Chest X-Ray 05/22/18 00:00 IMPRESSION: No acute abnormality of the lungs in AP projection. No focal airspace opacity. Assessment & Plan - Diagnosis (1) Laryngeal cancer Is this a current diagnosis for this admission?: Yes (2) Atrial fibrillation with rapid ventricular response Is this a current diagnosis for this admission?: Yes (3) COPD (chronic obstructive pulmonary disease) Qualifiers: COPD type: chronic bronchitis Chronic bronchitis type: simple Qualified Code(s): J41.0 - Simple chronic bronchitis Is this a current diagnosis for this admission?: Yes
[2018-06-04] MEDS: HYDROMORPHONE HCL 30 MG/60 ML RTUINJ IV PRN ×5 (02:47→20:35)
[2018-06-04] MEDS: LORAZEPAM INJ 2 MG/1 ML VIAL IV PRN ×3 (02:53→06:41)
[2018-06-04] MEDS: NORMAL SALINE 1000 ML 1,000 ML IV PRN (05:10)
--- NOTE | 2018-06-04 21:13 | PDOC PROGRESS REPORT ---
Subjective Progress Note for:: 06/04/18 Subjective:: Patient sedated, comfort care Reason For Visit: RECCURENT LARYNGEL CANCER BLEEDING;CHRONIC A FIB Physical Exam Vital Signs: Temp Pulse Resp BP Pulse Ox 97.3 F 116 H 8 L 115/76 88 L 06/04/18 19:20 06/04/18 19:20 06/04/18 20:36 06/04/18 19:20 06/04/18 20:36 Intake & Output 06/03/18 06/04/18 06/05/18 06:59 06:59 06:59 Intake Total 886.74 1050 239 Output Total 0 Balance 886.74 1050 239 Weight 69.4 kg 70.4 kg Results Laboratory Results: 05/24/18 04:28 05/23/18 13:28 Impressions: Chest X-Ray 05/22/18 00:00 IMPRESSION: No acute abnormality of the lungs in AP projection. No focal airspace opacity. Assessment & Plan - Diagnosis (1) Laryngeal cancer Is this a current diagnosis for this admission?: Yes (2) Atrial fibrillation with rapid ventricular response Is this a current diagnosis for this admission?: Yes (3) COPD (chronic obstructive pulmonary disease) Qualifiers: COPD type: chronic bronchitis Chronic bronchitis type: simple Qualified Code(s): J41.0 - Simple chronic bronchitis Is this a current diagnosis for this admission?: Yes
[2018-06-05] MEDS: HYDROMORPHONE HCL 30 MG/60 ML RTUINJ IV PRN ×6 (00:48→22:09)
[2018-06-05] MEDS: NORMAL SALINE 1000 ML 1,000 ML IV PRN (04:32)
--- NOTE | 2018-06-05 10:05 | PDOC PROGRESS REPORT ---
Subjective Progress Note for:: 06/05/18 Subjective:: Patient have a history of laryngeal cancer currently on a comfort care Patient is lying in a bed currently not distressed Patient is currently on IV pain medications No nursing concern Reason For Visit: RECCURENT LARYNGEL CANCER BLEEDING;CHRONIC A FIB Physical Exam Vital Signs: Temp Pulse Resp BP Pulse Ox 99.1 F 110 H 5 L 117/72 54 L 06/05/18 07:45 06/05/18 07:45 06/05/18 07:45 06/05/18 07:45 06/05/18 07:45 Intake & Output 06/04/18 06/05/18 06/06/18 06:59 06:59 06:59 Intake Total 1050 1059 60 Balance 1050 1059 60 Weight 70.4 kg 70.4 kg General appearance: PRESENT: no acute distress Respiratory exam: PRESENT: clear to auscultation perlita Cardiovascular exam: PRESENT: +S1, +S2 GI/Abdominal exam: PRESENT: normal bowel sounds Results Laboratory Results: 05/24/18 04:28 05/23/18 13:28 Impressions: Chest X-Ray 05/22/18 00:00 IMPRESSION: No acute abnormality of the lungs in AP projection. No focal airspace opacity. Assessment & Plan - Diagnosis (1) Laryngeal cancer Is this a current diagnosis for this admission?: Yes (2) Atrial fibrillation with rapid ventricular response Is this a current diagnosis for this admission?: Yes (3) COPD (chronic obstructive pulmonary disease) Qualifiers: COPD type: chronic bronchitis Chronic bronchitis type: simple Qualified Code(s): J41.0 - Simple chronic bronchitis Is this a current diagnosis for this admission?: Yes - Time Time Spent with patient: Less than 15 minutes Medications reviewed and adjusted accordingly: Yes Anticipated discharge: Other Within: Other - Plan Summary Plan Summary: Patient is currently on a comfort care
[2018-06-05] MEDS: LORAZEPAM INJ 2 MG/1 ML VIAL IV PRN (21:58)
[2018-06-06] MEDS: HYDROMORPHONE HCL 30 MG/60 ML RTUINJ IV PRN ×4 (07:00→20:02)
[2018-06-06] MEDS: LORAZEPAM INJ 2 MG/1 ML VIAL IV PRN (07:38)
[2018-06-06] MEDS: NORMAL SALINE 1000 ML 1,000 ML IV PRN (11:02)
--- NOTE | 2018-06-06 12:45 | PDOC PROGRESS REPORT ---
Subjective Progress Note for:: 06/06/18 Subjective:: Patient have a history of laryngeal cancer currently on a comfort care Patient is lying in a bed currently not distressed Patient is currently on IV pain medications No nursing concern Reason For Visit: RECCURENT LARYNGEL CANCER BLEEDING;CHRONIC A FIB Physical Exam Vital Signs: Temp Pulse Resp BP Pulse Ox 99.1 F 159 H 6 L 117/72 54 L 06/05/18 07:45 06/06/18 02:57 06/06/18 08:00 06/05/18 07:45 06/05/18 07:45 Intake & Output 06/05/18 06/06/18 06/07/18 06:59 06:59 06:59 Intake Total 1059 287 971 Balance 1059 287 971 Weight 70.4 kg 71.7 kg Results Laboratory Results: 05/24/18 04:28 05/23/18 13:28 Impressions: Chest X-Ray 05/22/18 00:00 IMPRESSION: No acute abnormality of the lungs in AP projection. No focal airspace opacity. Assessment & Plan - Diagnosis (1) Laryngeal cancer Is this a current diagnosis for this admission?: Yes (2) Atrial fibrillation with rapid ventricular response Is this a current diagnosis for this admission?: Yes (3) COPD (chronic obstructive pulmonary disease) Qualifiers: COPD type: chronic bronchitis Chronic bronchitis type: simple Qualified Code(s): J41.0 - Simple chronic bronchitis Is this a current diagnosis for this admission?: Yes - Time Time Spent with patient: Less than 15 minutes Medications reviewed and adjusted accordingly: Yes Anticipated discharge: Other Within: Other - Plan Summary Plan Summary: Continues to comfort care
[2018-06-07] MEDS: HYDROMORPHONE HCL 30 MG/60 ML RTUINJ IV PRN ×6 (00:22→21:58)
[2018-06-07] MEDS: LORAZEPAM INJ 2 MG/1 ML VIAL IV PRN (11:06)
[2018-06-07] MEDS: NORMAL SALINE 1000 ML 1,000 ML IV PRN (22:06)
--- NOTE | 2018-06-07 22:13 | PDOC PROGRESS REPORT ---
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 No focal airspace opacity. Assessment & Plan - Diagnosis (1) Laryngeal cancer Is this a current diagnosis for this admission?: Yes (2) Atrial fibrillation with rapid ventricular response Is this a current diagnosis for this admission?: Yes (3) COPD (chronic obstructive pulmonary disease) Qualifiers: COPD type: chronic bronchitis Chronic bronchitis type: simple Qualified Code(s): J41.0 - Simple chronic bronchitis Is this a current diagnosis for this admission?: Yes
[2018-06-08] MEDS: HYDROMORPHONE HCL 30 MG/60 ML RTUINJ IV PRN ×3 (02:04→10:58)
[2018-06-08 08:06] VITALS: BP 113/67
--- NOTE | 2018-06-08 19:59 | PDOC DISCHARGE SUMMARY ---
General - Admit/Disc Date/PCP Admission Date/Primary Care Provider: 05/22/18 08:41 HETAL HOPKINS MD Discharge Date: 06/08/18 - Discharge Diagnosis (1) Laryngeal cancer Is this a current diagnosis for this admission?: Yes (2) Atrial fibrillation with rapid ventricular response Is this a current diagnosis for this admission?: Yes (3) COPD (chronic obstructive pulmonary disease) Is this a current diagnosis for this admission?: Yes - Additional Information Resuscitation Status: Do Not Resuscitate Home Medications: Acetaminophen [Tylenol Extra Strength 500 mg Tablet] 500 mg PO Q6HP PRN 04/21/18 Apixaban [Eliquis 2.5 mg Tablet] 2.5 mg PO Q12 04/21/18 Bisacodyl [Dulcolax 10 mg Supp.rect] 10 mg IA DAILYP PRN 04/21/18 Buspirone HCl [Buspar 5 mg Tablet] 5 mg PO BID 04/21/18 Calcitriol [Rocaltrol 1 mcg/1 mL Oral Soln 15 mL] 0.3 mcg PO BID 04/21/18 Calcium Carbonate [Calcium] 500 mg PO TID 04/21/18 Ipratropium/Albuterol Sulfate [Duoneb 3 ml Ampul] 3 ml NEB RTQID 04/21/18 Levothyroxine Sodium [Synthroid 0.112 mg Tablet] 0.112 mg PO Q6AM 04/21/18 Mirtazapine [Remeron 15 mg Tablet] 15 mg PO QHS 04/21/18 Omeprazole 20 mg PO QHS 04/21/18 Oxycodone HCl [Oxy-Ir 5 mg Tablet] 5 mg PO Q8HP PRN 04/21/18 Scopolamine 1 each TD Q72HP PRN 04/21/18 Sennosides [Senna] 17.2 mg PO QHS 04/21/18 History of Present Illness History of Present Illness: LEONARD CAAL JR is a 72 year old male, He has a history of laryngeal cancer, [facility] to [facility] emergency room for evaluation of bleeding from the tracheostomy tube he was on Eliquis, anticoagulation for chronic atrial fibrillation Hospital Course Hospital Course: Patient with terminal cancer, inoperable laryngeal cancer, he was treated with chemotherapy, radical laryngectomy and also radiation therapy he was cancer free for roughly 9 months and there was recurrence of cancer ,[facility] advised that patient should be hospice ,this was couple of months ago. Patient was initially reluctant to go to hospice but his cancer aggressively got bigger to the degree that it was protruding from his mouth, he was basically tube feed dependent ,after consultation with the POA it was felt that patient should be comfort care because he has irreversible disease with no chance of cure. His care was transition to comfort care and he was started on morphine HEALTHCARE ADMINISTRATIVE ASSISTANT pump. Patient is being transferred today to hospice facility for further comfort care management Physical Exam Vital Signs: Temp Pulse Resp BP Pulse Ox 97.3 F 86 6 L 113/67 80 L 06/08/18 07:42 06/08/18 07:42 06/08/18 12:00 06/08/18 07:42 06/08/18 12:00 Intake & Output 06/07/18 06/08/18 06/09/18 06:59 06:59 06:59 Intake Total 1206 1352 60 Balance 1206 1352 60 Weight 69.7 kg General appearance: PRESENT: no acute distress Neck exam: PRESENT: tracheostomy Results Laboratory Results: 05/24/18 04:28 05/23/18 13:28 Impressions: Chest X-Ray 05/22/18 00:00 IMPRESSION: No acute abnormality of the lungs in AP projection. No focal airspace opacity. Qualifiers - * PATIENT BEING DISCHARGED WITH ANY OF THE FOLLOWING DIAGNOSIS: No
--- NOTE | 2018-07-26 18:38 | Progress Note ---
Provider Note Provider Note: I do not agree with suggestion of malnutrition at time of admission, serum albumin over 2.1 and BMI 20.8. Thanks.
== END 2018-06-08 13:49 | disposition hospice, inpatient (51) | DRG 147 ==
LOC: ER 03:52 → EH 08:41 → 3N 09:59
PROVIDERS: ADMIT Internal Medicine; ATTEND Internal Medicine
PROC: 30233N1 Transfusion of Nonautologous Red Blood Cells into Peripheral Vein, Percutaneous Approach (ICD-10-PCS; principal; 2018-06-02)
PROC: 30233N1 Transfusion of Nonautologous Red Blood Cells into Peripheral Vein, Percutaneous Approach (ICD-10-PCS; 2018-06-03)
DX: C32.9 Malignant neoplasm of larynx, unspecified (principal); I47.1 Supraventricular tachycardia; I48.2 Chronic atrial fibrillation; Z93.0 Tracheostomy status; E86.0 Dehydration; J41.0 Simple chronic bronchitis; I10 Essential (primary) hypertension; E78.5 Hyperlipidemia, unspecified; Z51.5 Encounter for palliative care; Z66 Do not resuscitate; K21.9 Gastro-esophageal reflux disease without esophagitis; K44.9 Diaphragmatic hernia without obstruction or gangrene; Z79.01 Long term (current) use of anticoagulants
CPT/HCPCS: 36415; 36430; 71045; 71046; 80053; 82962; 85025; 85027; 85610; 85730; 86850; 86900; 86901; 86920; 87040; 93005; 93010; 96361; 96365; 96375; 99285; J0153; J1170; J2060; J2543; J3490; J7030; J7620; P9016